=== PATIENT | male | born 1975 | race Caucasian/White ===

== ENCOUNTER 2020-02-19 21:14 | Observation (INO) | payer OTHER, SELFPAY ==
[2020-02-19] VITALS (8 sets, daily range): BP systolic 110–185; BP diastolic 55–101; PULSE 98–114; RESP 10–20; TEMP 36.2–37.3; O2SAT 93–97; BMI 61.6
--- NOTE | ~2020-02-19 | XR_ITS ---
EXAMINATION: XR chest 2V EXAM DATE: 02/19/2020 21:57 INDICATION: Shortness of breath. Left mid sternal chest pain. COVID 19 exposure. TECHNIQUE: Frontal and lateral projections of the chest obtained and reviewed. Comparison is made to prior examination from 04/30/2019. FINDINGS: The lungs are clear. There are no pleural effusions. The cardiomediastinal silhouette is within normal limits. There is no pneumothorax suspected. The bones and soft tissues are unremarkab le. IMPRESSION: No acute cardiopulmonary findings. Reviewed, dictated and finalized at location G.
--- NOTE | ~2020-02-19 | CT_ITS ---
EXAMINATION: CTA chest PE protocol DATE: 02/20/2020 12:49 INDICATION: Chest pain. Shortness of breath. TECHNIQUE: Computed tomography (CT) pulmonary angiogram of the chest was performed with 100 mL Omnipa que-350 intravenous contrast. Additional 3D reconstructions utilizing coronal maximum intensity proje ction (MIP) were performed. Automated exposure control and iterative reconstruction technique were em ployed. The dose-length product was 1089.68 mGy-cm. COMPARISON: None FINDINGS: Good but suboptimal contrast opacification of the pulmonary arteries. There is mild streak artifact f rom dense contrast in the superior vena cava and right atrium. Mild scattered respiratory motion wilian fact. Together this results in mild decreased sensitivity in some of the smaller subsegmental pulmona ry arteries. No evident pulmonary embolism. Mosaic attenuation the lungs consistent with partial expi ratory phase of imaging with subsegmental air trapping related to small airway disease. This is most prominent in the superior segment of the right lower lobe where there is prominent region with emphys chandler and increased lucency. No pneumonia, pulmonary edema, pleural effusion or pneumothorax. Heart siz e is normal. No pericardial effusion. Thoracic aorta is normal in caliber with no dissection. No path ologically enlarged thoracic lymphadenopathy. Mild thoracic spondylosis. IMPRESSION: 1. No pulmonary embolism. Sensitivity mildly decreased in some of the smaller subsegmental pulmonary arteries due to suboptimal contrast opacification and mild motion. 2. Atypical pattern of emphysema most prominent in the superior segment of the right lower lobe. Reviewed, dictated and finalized at location A. IMPRESSION: 1. No pulmonary embolism. Sensitivity mildly decreased in some of the smaller s ubsegmental pulmonary arteries due to suboptimal contrast opacification and mil d motion. 2. Atypical pattern of emphysema most prominent in the superior segment of the right lower lobe.
--- NOTE | ~2020-02-19 | US_ITS ---
EXAMINATION: US venous doppler [facility] DATE: 02/20/2020 15:13 INDICATION: Shortness of breath and tachycardia TECHNIQUE: Garcia scale images without and with compression and Doppler images of the bilateral lower e xtremity veins were obtained. COMPARISON: None. FINDINGS: The right common femoral vein, profunda femoral vein, femoral vein, popliteal vein, peroneal trunk, p osterior tibial veins, and greater saphenous vein are patent. The left common femoral vein, profunda femoral vein, femoral vein, popliteal vein, peroneal trunk, po sterior tibial veins, and greater saphenous vein are patent. IMPRESSION: 1. Patent bilateral lower extremity veins. No evidence of deep venous thrombosis. Reviewed, dictated and finalized at location A. IMPRESSION: 1. Patent bilateral lower extremity veins. No evidence of deep venous thrombosi s.
--- NOTE | 2020-02-19 21:19 | ECG_ITS ---
Measurements Intervals [place] Rate: 94 P: 38 MD: 194 QRS: -6 QRSD: 114 T: 55 QT: 314 QTc: 393 Interpretive Statements SINUS RHYTHM LOW QRS VOLTAGE IN PRECORDIAL LEADS VOLTAGE CRITERIA FOR LVH ST ELEVATION IN DIFFUSE LEADS- PROBABLY EARLY REPOLARIZATION MINIMAL Q WAVES- LATERAL LEADS BASELINE WANDER- II, III BORDERLINE ECG Electronically Signed On 02-20-2020 7:21:15 CDT by Rogelio Patricio D.O.
--- NOTE | 2020-02-19 21:40 | ED.CHESTPAIN ---
HPI - Chest Pain General Chief Complaint: Chest Pain Stated Complaint: upper resp. Time Seen by Provider: 02/19/20 21:17 Source: patient Mode of arrival: ambulatory Limitations: no limitations History of Present Illness HPI narrative: 44-year-old man with a history of obstructive sleep apnea, type 2 diabetes, and COPD comes in today complaining of sharp intermittent left-sided chest pain radiating through to his left back. He denies pain radiating to his arm and neck. He complains of intermittent shortness of breath not necessarily associated with the chest pain. The symptoms started 3 or 4 days ago. Currently the pain is 5/10. He has had some mild lightheadedness with the chest pain and occasionally some rapid heart rate, but no nausea, sweating, syncope. He had a stress test a year and half ago which was negative. MD complaint: chest pain Onset (ago): day(s) (3-4) Timing of current episode: episodic and still present Prior episodes: No Onset: during rest Pain location: substernal and left chest Pain radiation: back Severity: moderate Quality: sharp Relieving factors: nothing Exacerbating factors: nothing Associated symptoms: dyspnea, palpitations and cough (chronic) Treatment prior to arrival: nitroglycerin ( No improvement) Risk Factors Coronary artery disease risk factors: diabetes and family history of CAD before age 50 Pulmonary embolism risk factors: morbid obesity Related Data Home Medications Medication Instructions Recorded Confirmed tiotropium bromide 2.5 2 puff INHALATION DAILY gm 09/30/19 09/30/19 mcg/actuation mist for inhalation dulaglutide [Trulicity] 1.25 mg SUBCUT WEEKLY 02/19/20 02/19/20 indomethacin 25 mg PO DAILY 02/19/20 02/19/20 Allergies Allergy/AdvReac Type Severity Reaction Status Date / Time Contrast Media Allergy Intermediate Itching Uncoded 02/03/20 09:36 Review of Systems Constitutional: Constitutional: Denies chills, Denies fatigue, Denies fever(s) and Denies weakness Eyes: Eyes: Denies change in vision and Denies photophobia ENT: Denies dysphagia, Denies nasal congestion and Denies sore throat Cardiovascular: Cardiovascular: Reports as per HPI, Reports chest pain, Reports rapid heart rate and Denies radiating jaw, neck or arm pain Respiratory: Respiratory: Denies chest congestion, Reports cough, Reports dyspnea and Denies wheezing Gastrointestinal: Gastrointestinal: Denies abdominal pain, Denies diarrhea, Denies nausea and Denies vomiting Genitourinary: Genitourinary: Denies dysuria and Denies urinary frequency Musculoskeletal: Musculoskeletal: Reports arthralgias ( recent gout attack) Integumentary/Breasts: Skin/Breast: Denies pruritus, Denies erythema and Denies rash Neurologic: Reports as per HPI, Denies vertigo, Reports dizziness and Denies syncope Psychiatric: Psychiatric: Denies anxiety and Denies depression Endocrine: Endocrine: Denies polydipsia and Denies polyuria Hematologic/Lymphatic: Hematologic/Lymphatic: Denies easy bleeding and Denies easy bruising Allergic/Immunologic: Allergic/Immunologic: Denies lip swelling and Denies wheezing PMFSH Past Medical History Medical History COPD (chronic obstructive pulmonary disease) Hyperlipidemia associated with type 2 diabetes mellitus Hypothyroidism Migraine with aura and without status migrainosus Nonalcoholic fatty liver disease Obesity NABILA (obstructive sleep apnea) Pilonidal cyst Type 2 diabetes mellitus with hypertriglyceridemia Surgical History Surgical History History of fasciotomy (~2010) History of left heart catheterization (LHC) History of oral surgery (~2001) Oral Extractions Social History Social History Smoking status: Unknown if ever smoked Alcohol intake: current Substance use: never Gender identity (if verbalized by
[2020-02-19] MEDS: NITROGLYCERIN SL 0.4 MG TABLET SUBLINGUAL (21:59)
[2020-02-19] MEDS: ASPIRIN 81 MG CHEWABLE TABLET 324 MG PO (22:00)
[2020-02-19 22:06] LABS: Basophils Absolute Auto 0.01 K/mm3 (0.00-0.10); Basophils Percent Auto 0.1 % (0.0-1.0); Eosinophils Absolute Auto 0.18 K/mm3 (0.02-0.50); Eosinophils Percent Auto 2.4 % (1.0-6.0); Hematocrit 39.7 % (40.0-54.0); Hemoglobin 13.6 g/dL (14.0-18.0); Immature Granulocyte Absolute 0.03 K/mm3 (0.00-0.00); Immature Granulocyte Percent A 0.4 % (0.0-0.0); Lymphocytes Absolute Auto 2.01 K/mm3 (1.10-4.50); Lymphocytes Percent Auto 27.2 % (18.0-42.0); Mean Corpuscular HGB Conc 34.3 g/dL (32.0-36.0); Mean Corpuscular Hemoglobin 31.2 pg (27.0-31.0); Mean Corpuscular Volume 91.1 fL (78.0-102.0); Mean Platelet Volume 8.9 fl (8.7-11.0); Monocytes Absolute Auto 0.37 K/mm3 (0.10-0.90); Neutrophils Absolute Auto 4.8 K/mm3 (1.7-7.2); Neutrophils Percent Auto 64.9 % (50.0-70.0); Platelet Count Result 207 K/mm3 (150-420); Red Blood Count 4.36 M/mm3 (4.70-6.10); Red Cell Distribution Width 12.7 % (11.6-14.4); White Blood Count 7.4 K/mm3 (4.8-10.8)
[2020-02-19 22:19] LABS: Partial Thromboplastin Time 27.1 SEC (22.3-31.6); Prothrombin Time 10.6 Seconds (9.64-11.0)
[2020-02-19 22:22] LABS: D Dimer 0.61 mg/L (0.19-0.50)
[2020-02-19 22:24] LABS: Alanine Aminotransferase 34 U/L (16-63); Albumin Level 3.4 g/dL (3.4-5.0); Alkaline Phosphatase 76 U/L (46-116); Anion Gap 11.9 mmol/L (7-16); Aspartate Amino Transferase 20 U/L (15-37); Bilirubin,Total 0.3 mg/dL (0.00-1.00); Blood Urea Nitrogen 11 mg/dL (7-18); Calcium 8.6 mg/dL (8.5-10.1); Carbon Dioxide 30 mmol/L (21-32); Chloride 101 mmol/L (98-108); Estimated CRCL calculation 165 ml/min; Estimated Glomerular Filt Rate > 60; Glucose 148 mg/dL (70-99); Influenza Control Valid (Valid); Osmolality Calculated 290 mOsm/kg (285-295); Potassium 3.9 mmol/L (3.5-5.1); Sodium 139 mmol/L (136-145); Total Protein 7.3 g/dL (6.4-8.2)
--- NOTE | 2020-02-19 22:25 | PC.NURSE ---
Patient reports slight improvement in CP after first Nitro given, now rates pain 3/10. ST on monitor, rate 110-120s. BP has normalized after first Nitro. Second nitro given, will continue to monitor
[2020-02-19 22:27] LABS: Troponin I < 0.02 ng/mL (0.00-0.056)
[2020-02-19 22:37] LABS: BNP < 5 pg/mL (0-100)
--- NOTE | 2020-02-19 22:47 | PC.NURSE ---
Patient to be admitted for [address] Duncan.
[2020-02-19] MEDS: predniSONE 40 MG, predniSONE 10 MG 50 MG PO (23:32)
--- NOTE | 2020-02-19 23:40 | ADMGEN ---
This patient, Juan Ramon Tabor, was admitted to 2nd Floor Room 212-1. Patient/family oriented to hospital policies and general routines including ID bracelet, bed and alarms, visiting hours, pain management, procedures, bathroom and other care routines, personal items, smoking policy, room service/diet, and visiting hours. Valuables list has been completed. Information on how to activate the Rapid Response Team has been discussed. Patient/Family are encouraged to report perceived risks to care and to ask questions if they do not understand what they are told or what they should do.
[2020-02-20] VITALS (12 sets, daily range): BP systolic 113–156; BP diastolic 65–98; PULSE 79–114; RESP 18–20; TEMP 36.2–36.7; O2SAT 6–96
--- NOTE | 2020-02-20 00:01 | ECHO_ITS ---
Patient Info Name: Juan Ramon Tabor Age: 44 years : 1975 Gender: Male Ht: 73 in Wt: 471 lbs BSA: 3.44 m2 HR: 114 bpm BP: 136 / 72 mmHg Heart Rhythm: Sinus Rhythm Technical Quality: Poor Exam Date: 02/20/2020 12:45 PM Exam Location: [facility] Exam Room: 226 Patient Status: Inpatient Admit Date: 02/19/2020 Staff Ordering Physician: Michael Duncan MD Visitor Services Associate: Luz Rincon RDCS Attending Provider: Michael Duncan MD Referring Physician: Dakota ARMENDARIZ; Exam Type: CA echo doppler color flow Study Info Indications R07.9 - Chest pain, unspecified Complete two-dimensional, color flow and Doppler transthoracic echocardiogram is performed. Reason for Poor Study: patient body habitus History/Risk Factors Hypertension: No Dyslipidemia: Yes Congenital Heart Disease (CHD): No Peripheral Arterial Disease (PAD): No Myocardial Infarction (MO): No Chronic Lung Disease: No Obesity: Yes Renal Disease: No Congestive Heart Failure (CHF): No Cardiomyopathy/LV Systolic Dysfunction: No Diabetes Mellitus: Type II COPD: On Meds Tobacco Use: Never Cerebrovascular Disease: No Family History: Diabetes Mellitus, Coronary Artery Disease DVT Treatment: Edoxaban Deep Vein Thrombosis (DVT): None Dialysis: None Frailty Scale (CSHA): 3: Managing Well Cardiac Arrest: No Summary 1. Technically suboptimal study due to poor sonographic images. 2. No subcostal images acquired. 3. Left ventricular chamber dimension is normal. 4. Left ventricular systolic function is normal, estimated at 60-65%. 5. The left ventricular diastolic function is normal. 6. Left atrial chamber dimension is mildly enlarged. 7. There is trivial pericardial effusion. Recommendations * Continue medical therapy for diabetes. Left Ventricle Tissue doppler is not performed. Technically suboptimal study due to poor sonographic images. No subcostal images acquired. Left ventricular chamber dimension is normal. Left ventricular systolic function is normal, estimated at 60-65%. The left ventricular diastolic function is normal. Right Ventricle Right ventricular chamber dimension is not well visualized. Left Atria Left atrial chamber dimension is mildly enlarged. Right Atria Right atrial chamber dimension is normal. Aortic Valve Cannot determine number of aortic valve leaflets. The aortic valve is not well visualized. There is no aortic valve stenosis. There is no aortic valve regurgitation. Pulmonic Valve The pulmonic valve is not well visualized. Mitral Valve There is no mitral valve stenosis. There is no mitral valve regurgitation. Tricuspid Valve The tricuspid valve leaflets are not well visualized. Pericardium/Pleural There is trivial pericardial effusion. Aorta The aortic root size at the sinus of Valsalva is normal. Left Ventricular Outflow Tract Name Value Normal LVOT 2D LVOT Diameter 2.2 cm LVOT Doppler LVOT Peak Velocity 132 cm/s LVOT Peak Gradient
[2020-02-20] MEDS: ENOXAPARIN 120 MG/0.8 ML SYRINGE SUB-Q ×2 (01:50→14:16)
[2020-02-20] MEDS: SODIUM CHLORIDE 0.9% IV 1,000 ML 100 ML IV CONT (01:50)
[2020-02-20] MEDS: ENOXAPARIN 30 MG/0.3 ML SYRINGE SUB-Q ×2 (01:50→14:17)
[2020-02-20 02:26] LABS: Troponin I < 0.02 ng/mL (0.00-0.056)
--- NOTE | 2020-02-20 03:15 | PC.NURSE ---
Patient resting in bed. Patient running sinus rhythm on telemetry rate in the 80s
[2020-02-20 05:41] LABS: Basophils Absolute Auto 0.01 K/mm3 (0.00-0.10); Basophils Percent Auto 0.1 % (0.0-1.0); Eosinophils Absolute Auto 0.12 K/mm3 (0.02-0.50); Eosinophils Percent Auto 1.6 % (1.0-6.0); Hematocrit 38.4 % (40.0-54.0); Immature Granulocyte Absolute 0.03 K/mm3 (0.00-0.00); Immature Granulocyte Percent A 0.4 % (0.0-0.0); Lymphocytes Absolute Auto 1.26 K/mm3 (1.10-4.50); Lymphocytes Percent Auto 17.1 % (18.0-42.0); Mean Corpuscular HGB Conc 33.9 g/dL (32.0-36.0); Mean Corpuscular Hemoglobin 31.1 pg (27.0-31.0); Mean Corpuscular Volume 91.9 fL (78.0-102.0); Mean Platelet Volume 9.2 fl (8.7-11.0); Monocytes Absolute Auto 0.25 K/mm3 (0.10-0.90); Monocytes Percent Auto 3.4 % (2.0-11.0); Neutrophils Absolute Auto 5.7 K/mm3 (1.7-7.2); Neutrophils Percent Auto 77.4 % (50.0-70.0); Platelet Count Result 185 K/mm3 (150-420); Red Blood Count 4.18 M/mm3 (4.70-6.10); Red Cell Distribution Width 12.8 % (11.6-14.4); White Blood Count 7.4 K/mm3 (4.8-10.8)
--- NOTE | 2020-02-20 05:54 | PC.NURSE ---
Call placed to [facility] to discuss pretreatment Benadryl and prednisone orders
[2020-02-20] MEDS: LEVOTHYROXINE SODIUM 112 MCG TABLET PO (05:59)
[2020-02-20] MEDS: ALBUTEROL SULFATE (*SP) INHALER 2 PUFF INHALATION ×4 (05:59→20:26)
[2020-02-20 06:04] LABS: Alanine Aminotransferase 33 U/L (16-63); Albumin Level 3.2 g/dL (3.4-5.0); Alkaline Phosphatase 70 U/L (46-116); Anion Gap 15.5 mmol/L (7-16); Aspartate Amino Transferase 22 U/L (15-37); Bilirubin,Total 0.2 mg/dL (0.00-1.00); Blood Urea Nitrogen 12 mg/dL (7-18); Calcium 8.7 mg/dL (8.5-10.1); Carbon Dioxide 27 mmol/L (21-32); Chloride 102 mmol/L (98-108); Estimated CRCL calculation 164 ml/min; Estimated Glomerular Filt Rate > 60; Glucose 176 mg/dL (70-99); Osmolality Calculated 293 mOsm/kg (285-295); Potassium 4.5 mmol/L (3.5-5.1); Sodium 140 mmol/L (136-145); Total Protein 6.6 g/dL (6.4-8.2); Troponin I < 0.02 ng/mL (0.00-0.056)
--- NOTE | 2020-02-20 06:08 | PC.NURSE ---
received call back from [facility] and explained that the Prednisone and Benadryl orders for 0500 and 1100 need to be given this morning and that the orders need to be fixed so that medication can be scanned out.
[2020-02-20] MEDS: predniSONE 40 MG, predniSONE 10 MG 50 MG PO ×3 (06:14→12:32)
[2020-02-20 07:53] LABS: Glucose Point of Care 141 (65-105)
[2020-02-20] MEDS: ACETAMINOPHEN 500 MG TABLET 1000 MG PO ×2 (08:12→13:00)
[2020-02-20] MEDS: INDOMETHACIN 25 MG CAPSULE PO (08:13)
--- NOTE | 2020-02-20 13:58 | PM.IMHP ---
H&P: HPI History of Present Illness Chief complaint: upper resp Narrative: Juan Ramon Tabor is a 44 year old male that presented to the ED with chest pain. Patient has a past medical history of COPD, hyperlipidemia, hypothyroidism, migraines, non alcoholic fatty liver disease, obesity, NABILA, type 2 diabetes and pericarditis. according to patient for the last 3-4 days he has been having intermittent chest pains that radiates to his left back and causes him shortness of breath. Patient notes that he does have a history of chest pains and he would normally take nitro and Spiriva along with his CPAP and his shortness of breath and chest pains would resolve. He noted that it did not work this time and chest pains worsened that is when he decided to proceed to the ED. He also noted that he had a little dizziness and lightheadedness with the chest pains with occasional rapid heart beat. while he was in the ED he did receive more nitro, troponin was negative x3, chest x-ray was also negative EKG sinus rhythm and BMP within normal limits his influenza was negative. he does have a COVID-19 pending. according to patient his family is currently on quarantine. his son works at [employer], to employs is at the [employer] tested positive. his family will officially be off quarantine 02/23. at this time he still has a little chest discomfort. he is currently telemetry, no arrhythmias noted. echo and CTA is currently pending. patient is allergic to contrast he will be given prednisone and Benadryl to prevent allergic reaction. patient instructed to have his bring his CPAP. Review of Systems Constitutional: Constitutional: Denies chills, Denies fatigue, Denies fever(s) and Denies headache(s) Cardiovascular: Cardiovascular: Reports chest pain at rest ( chest discomfort), Denies irregular heart rhythm and Reports lightheadedness Respiratory: Respiratory: Denies pain with cough, Reports dyspnea and Denies wheezing Gastrointestinal: Gastrointestinal: Reports no additional gastrointestinal complaints, Denies dyspepsia, Denies heartburn, Denies diarrhea, Denies nausea and Denies vomiting Genitourinary: Genitourinary: Denies hematuria, Denies dysuria, Denies flank pain and Denies urinary frequency Musculoskeletal: Musculoskeletal: Reports no additional musculoskeletal complaints Integumentary/Breasts: Skin/Breast: Reports system reviewed and no additional complaints, except as docu Neurologic: Reports system reviewed and no additional complaints, except as documented, Denies Abnormal speech present and Denies headache(s) Psychiatric: Psychiatric: Reports no additional psychiatric complaints, Denies confusion, Denies mood swings, Denies panic attacks and Denies paranoia Endocrine: Endocrine: Reports no additional endocrine complaints Hematologic/Lymphatic: Hematologic/Lymphatic: Reports no additional hematologic/lymphatic complaints Allergic/Immunologic: Allergic/Immunologic: Reports no additional allergic/immunologic complaints PMFSH Past Medical History Medical History COPD (chronic obstructive pulmonary disease) Hyperlipidemia associated with type 2 diabetes mellitus Hypothyroidism Migraine with aura and without status migrainosus Nonalcoholic fatty liver disease Obesity NABILA (obstructive sleep apnea) Pilonidal cyst Type 2 diabetes mellitus with hypertriglyceridemia Surgical History Surgical History History of fasciotomy (~2010) History of left heart catheterization (LHC) History of oral surgery (~2001) Oral Extractions Social History Social History Smoking status: Never smoker Alcohol intake: never Substance use: never Gender identity (if verbalized by the patient): Male Spiritual care concerns: No Agree to blood products: Yes Meds Home Medications and Allergies
--- NOTE | 2020-02-20 14:38 | PC.NURSE ---
pt reports no relief from rtylenol for headache. Kelli [employer] notified.
[2020-02-20] MEDS: SUMAtriptan SUCCINATE 25 MG TABLET 100 MG PO (15:28)
[2020-02-20] MEDS: NAPROXEN 250 MG TABLET PO (15:29)
[2020-02-20] MEDS: NAPROXEN 250 MG TABLET 500 MG PO (16:42)
[2020-02-20 16:54] LABS: Glucose Point of Care 197 (65-105)
--- NOTE | 2020-02-20 17:34 | PC.NURSE ---
Patients blood sugar 196. Patient reported that he had eaten candy just before scan was taken. No SSI needed.
--- NOTE | 2020-02-20 19:11 | PC.NURSE ---
1600 Patient denies chest pain, SOB.
--- NOTE | 2020-02-20 19:13 | PC.NURSE ---
1700 sitting on side of bed. C/O headache. Denies SOB, chest pain. SPO2 @ 92 % on room air.
--- NOTE | 2020-02-20 19:15 | PC.NURSE ---
1800 Sitting at side of bed. No SOB or c/o chest pain. Pleasant and talkative.
--- NOTE | 2020-02-20 19:30 | PC.NURSE ---
pt sitting on side of bed, denies any chest pain or sob at this time
[2020-02-20] MEDS: PANTOPRAZOLE 40 MG TABLET PO (20:26)
--- NOTE | 2020-02-20 20:30 | PC.NURSE ---
pt resting in bed, medications given, juice per request and fan, pt denies any chest pain or sob at this time.
[2020-02-20 21:19] LABS: Glucose Point of Care 175 (65-105)
--- NOTE | 2020-02-20 22:33 | PC.NURSE ---
pt sleeping, respirations even and regular, no evidence of distress noted
[2020-02-21] MEDS: ENOXAPARIN 120 MG/0.8 ML SYRINGE SUB-Q (01:14)
[2020-02-21] MEDS: ENOXAPARIN 30 MG/0.3 ML SYRINGE SUB-Q (01:14)
[2020-02-21 01:15] VITALS: BP 136/86; PULSE 68; RESP 20; TEMP 36.6; O2SAT 97
--- NOTE | 2020-02-21 01:15 | PC.NURSE ---
pt sleeping with home cpap one, vital signs obtained, denies any pain or sob
--- NOTE | 2020-02-21 03:24 | PC.NURSE ---
pt sleeping, no evidence of distress noted, respirations even and regular
[2020-02-21 03:55] VITALS: PULSE 63
[2020-02-21] MEDS: LEVOTHYROXINE SODIUM 112 MCG TABLET PO (05:39)
[2020-02-21] MEDS: ALBUTEROL SULFATE (*SP) INHALER 2 PUFF INHALATION ×2 (05:39→10:28)
[2020-02-21 05:40] VITALS: BP 129/76; PULSE 79; RESP 20; TEMP 36.4; O2SAT 95
--- NOTE | 2020-02-21 05:40 | PC.NURSE ---
pt sitting on side of bed, denies any chest pain, given orange juice per request, states he is not diabetic just pre-diabetic
[2020-02-21 05:46] LABS: Basophils Absolute Auto 0.02 K/mm3 (0.00-0.10); Basophils Percent Auto 0.2 % (0.0-1.0); Eosinophils Absolute Auto 0.02 K/mm3 (0.02-0.50); Eosinophils Percent Auto 0.2 % (1.0-6.0); Hematocrit 38.9 % (40.0-54.0); Hemoglobin 13.1 g/dL (14.0-18.0); Immature Granulocyte Percent A 0.9 % (0.0-0.0); Lymphocytes Percent Auto 22.1 % (18.0-42.0); Mean Corpuscular HGB Conc 33.7 g/dL (32.0-36.0); Mean Corpuscular Hemoglobin 30.8 pg (27.0-31.0); Mean Corpuscular Volume 91.3 fL (78.0-102.0); Mean Platelet Volume 9.1 fl (8.7-11.0); Monocytes Absolute Auto 0.61 K/mm3 (0.10-0.90); Monocytes Percent Auto 5.6 % (2.0-11.0); Neutrophils Absolute Auto 7.7 K/mm3 (1.7-7.2); Platelet Count Result 207 K/mm3 (150-420); Red Blood Count 4.26 M/mm3 (4.70-6.10); Red Cell Distribution Width 12.8 % (11.6-14.4); White Blood Count 10.9 K/mm3 (4.8-10.8)
[2020-02-21 06:13] LABS: Alanine Aminotransferase 28 U/L (16-63); Albumin Level 3.1 g/dL (3.4-5.0); Alkaline Phosphatase 62 U/L (46-116); Anion Gap 12.2 mmol/L (7-16); Aspartate Amino Transferase 14 U/L (15-37); Bilirubin,Total 0.2 mg/dL (0.00-1.00); Blood Urea Nitrogen 11 mg/dL (7-18); Calcium 8.7 mg/dL (8.5-10.1); Carbon Dioxide 29 mmol/L (21-32); Chloride 103 mmol/L (98-108); Estimated CRCL calculation 190 ml/min; Estimated Glomerular Filt Rate > 60; Glucose 148 mg/dL (70-99); Osmolality Calculated 292 mOsm/kg (285-295); Potassium 4.2 mmol/L (3.5-5.1); Sodium 140 mmol/L (136-145); Total Protein 6.5 g/dL (6.4-8.2)
[2020-02-21 07:41] LABS: Glucose Point of Care 106 (65-105)
[2020-02-21] MEDS: INDOMETHACIN 25 MG CAPSULE PO (08:32)
[2020-02-21] MEDS: NAPROXEN 250 MG TABLET 500 MG PO (08:33)
[2020-02-21] MEDS: PANTOPRAZOLE 40 MG TABLET PO (08:33)
[2020-02-21 09:35] VITALS: BP 136/78; PULSE 78; RESP 18; TEMP 36.3; O2SAT 100
--- NOTE | 2020-02-21 11:13 | P.DS_ITS ---
DS: Diagnosis Admitting Diagnosis Admitting Diagnosis: Dyspnea, unspecified <Kelli eMade BOAT FUELER-C - Last Filed: 02/21/20 12:10> Discharge Diagnosis (1) Chest pain: Code(s): R07.9 - Chest pain, unspecified <Kelli Meade [employer] F[employer]ELER-C - Last Filed: 02/21/20 12:10> Status: Acute <Kelli Meade BOAT FUELER-C - Last Filed: 02/21/20 12:10> Assessment and Plan: * possibly secondary to COPD exacerbation * noncardiac related * troponin to negative x3 * EKG sinus rhythm * echo unremarkable * CTA pending and lower extremity Dopplers unremarkable * D-dimer slightly elevated 0.61 * COVID-19 pending * influenza negative * patient has a history of pericarditis that have occurred within the last 5 years x2 <Kelli Meade BOAT FUELER-C - Last Filed: 02/21/20 12:10> (2) Bilateral lower extremity edema: Code(s): R60.0 - Localized edema <Kelli Meade BOAT FUELER-C - Last Filed: 02/21/20 12:10> Status: Acute <Kelli Meade BOAT FUELER-C - Last Filed: 02/21/20 12:10> Assessment and Plan: * patient has a history of lower extremity edema * echo ordered a rule out congestive heart failure * BNP within normal limits <Kelli MckinnonBeatriz Deshaun BOAT FUELER-C - Last Filed: 02/21/20 12:10> (3) NABILA (obstructive sleep apnea): Code(s): G47.33 - Obstructive sleep apnea (adult) (pediatric) <Kelli Meade BOAT FUELER-C - Last Filed: 02/21/20 12:10> Status: Acute <Kelli Meade BOAT FUELER-C - Last Filed: 02/21/20 12:10> Assessment and Plan: * continue use of CPAP <Mallyubov InoDU Mackay-C - Last Filed: 02/21/20 12:10> (4) Obesity: Code(s): E66.9 - Obesity, unspecified <Mallyubov InoDU Mackay-C - Last Filed: 02/21/20 12:10> Status: Acute <Kelli Meade KATY - Last Filed: 02/21/20 12:10> Assessment and Plan: * patient educated on healthy lifestyle * continue diabetic diet <Kelli Meade KATY - Last Filed: 02/21/20 12:10> (5) Type 2 diabetes mellitus with hypertriglyceridemia: Code(s): E11.69 - Type 2 diabetes mellitus with other specified complication; E78.1 - Pure hyperglyceridemia <Kelli Meade BOAT FUELERRicky - Last Filed: 02/21/20 12:10> Status: Acute <Kelli Meade KATY - Last Filed: 02/21/20 12:10> Assessment and Plan: * controlled * continue home medication <Kelli Meade BOAT FUELERSamsonAnge - Last Filed: 02/21/20 12:10> (6) COPD (chronic obstructive pulmonary disease): Code(s): J44.9 - Chronic obstructive pulmonary disease, unspecified <Kelli Meade KENAAnge - Last Filed: 02/21/20 12:10> Status: Acute <Kelli Meade KATY - Last Filed: 02/21/20 12:10> Assessment and Plan: * stable * continue inhalers patient will start taking steroids once COVID-19 returns negative * continue CPAP <Kelli Meade BOAT FUELERRicky - Last Filed: 02/21/20 12:10> (7) Hypothyroidism: Code(s): E03.9 - Hypothyroidism, unspecified <Kelli Meade KENAAnge - Last Filed: 02/21/20 12:10> Status: Acute <Kelli Meade KATY - Last Filed: 02/21/20 12:10> Assessment and Plan: * continue Synthroid * will follow-up primary care physician <Mallyubov InoKATY Mackay - Last Filed: 02/21/20 12:10> DS: Summary Hospital Course Hospital Course: patient H&P admission 02/20/2020 Narrative: Juan Ramon Tabor is a 44 year old male that presented to the ED with chest pain. Patient has a past medical history of COPD, hyperlipidemia, hypothyroidism, migraines, non alcoholic
--- NOTE | 2020-02-21 11:13 | PM.DS ---
DS: Diagnosis Admitting Diagnosis Admitting Diagnosis: Dyspnea, unspecified <Kelli Meade TRACKWALKER-C - Last Filed: 02/21/20 12:10> Discharge Diagnosis (1) Chest pain: Code(s): R07.9 - Chest pain, unspecified <Kelli Meade TRACKWALKER-C - Last Filed: 02/21/20 12:10> Status: Acute <Kelli Meade TRACKWALKER-C - Last Filed: 02/21/20 12:10> Assessment and Plan: possibly secondary to COPD exacerbation noncardiac related troponin to negative x3 EKG sinus rhythm echo unremarkable CTA pending and lower extremity Dopplers unremarkable D-dimer slightly elevated 0.61 COVID-19 pending influenza negative patient has a history of pericarditis that have occurred within the last 5 years x2 <Kelli Meade TRACKWALKER-C - Last Filed: 02/21/20 12:10> (2) Bilateral lower extremity edema: Code(s): R60.0 - Localized edema <Kelli Meade TRACKWALKER-C - Last Filed: 02/21/20 12:10> Status: Acute <Kelli Meade TRACKWALKER-C - Last Filed: 02/21/20 12:10> Assessment and Plan: patient has a history of lower extremity edema echo ordered a rule out congestive heart failure BNP within normal limits <Kelli Meade TRACKWALKER-C - Last Filed: 02/21/20 12:10> (3) NABILA (obstructive sleep apnea): Code(s): G47.33 - Obstructive sleep apnea (adult) (pediatric) <Kelli MckinnonBeatriz Meade TRACKWALKER-C - Last Filed: 02/21/20 12:10> Status: Acute <Kelli MckinnonBeatriz Deshaun TRACKWALKER-C - Last Filed: 02/21/20 12:10> Assessment and Plan: continue use of CPAP <Mallyubov InoDU Mackay-C - Last Filed: 02/21/20 12:10> (4) Obesity: Code(s): E66.9 - Obesity, unspecified <Kelli MckinnonBeatriz Meade TRACKWALKER-C - Last Filed: 02/21/20 12:10> Status: Acute <Kelli MckinnonBeatriz Meade TRACKWALKER-C - Last Filed: 02/21/20 12:10> Assessment and Plan: patient educated on healthy lifestyle continue diabetic diet <Kelli MckinnonBeatriz DeshaunKATY - Last Filed: 02/21/20 12:10> (5) Type 2 diabetes mellitus with hypertriglyceridemia: Code(s): E11.69 - Type 2 diabetes mellitus with other specified complication; E78.1 - Pure hyperglyceridemia <Kelli MckinnonKAYT Mackay - Last Filed: 02/21/20 12:10> Status: Acute <Kelli MeaedKATY - Last Filed: 02/21/20 12:10> Assessment and Plan: controlled continue home medication <Mallyubov InoKATY Mackay - Last Filed: 02/21/20 12:10> (6) COPD (chronic obstructive pulmonary disease): Code(s): J44.9 - Chronic obstructive pulmonary disease, unspecified <Kelli MckinnonDU MackaySamsonAnge - Last Filed: 02/21/20 12:10> Status: Acute <Kelli Mcgraw KATY Meade - Last Filed: 02/21/20 12:10> Assessment and Plan: stable continue inhalers patient will start taking steroids once COVID-19 returns negative continue CPAP <MalDU RothSamsonAnge - Last Filed: 02/21/20 12:10> (7) Hypothyroidism: Code(s): E03.9 - Hypothyroidism, unspecified <Kelli MeadeDURicky - Last Filed: 02/21/20 12:10> Status: Acute <Mallyubov InoDU MackaySamsonAnge - Last Filed: 02/21/20 12:10> Assessment and Plan: continue Synthroid will follow-up primary care physician <MalKATY Roth - Last Filed: 02/21/20 12:10> DS: Summary Hospital Course Hospital Course: patient H&P admission 02/20/2020 Narrative: Juan Ramon Tabor is a 44 year old male that presented to the ED with chest pain. Patient has a past medical history of COPD, hyperlipidemia, hypothyroidism, migraines, non alcoholic fatty liver disease, obesity, NABILA, type 2 diabetes and pericarditis. according to patient for the last 3-4 days he has been having intermittent chest pains that radiates to his left back and causes him shortness of breath. Patient notes that he does have a history of chest pains and he would normally take nitro and Spiriva along with his CPAP and his shortness of breath and oswaldo
--- NOTE | 2020-02-21 12:15 | PC.NURSE ---
pt discharged from facility via w/c at 11:55am. made safe exit form hospital to awaiting private car and family member. discharge instructions given. pt verbalized understanding. pt aware that covid19 tests are still pending and he needs to maintain quarantine until further notice.
[2020-02-21 13:23] LABS: SARS-CoV-2 RNA PCR Negative
--- NOTE | 2020-02-25 16:54 | PC.NURSE ---
DISCHARGE FOLLOW UP CALL: Pt states admission was ok, protocols are different with the virus going around, despite that, staff were attentive. Pt was disappointed that he was told he would get a phonecall about his COVID-19 test result, and instead he had to call the hospital to get the result. Informed that staff would investigate. Discharge was seamless.
== END 2020-02-21 11:40 | disposition home or self-care (01) ==
LOC: CHSED 23:14 → CHS2ND 23:21
PROVIDERS: Nurse Practitioner; Admitting Provider Emergency Medicine; Emergency Provider Emergency Medicine; Visit Provider Emergency Medicine
DX: R07.9 Chest pain, unspecified (principal); R06.00 Dyspnea, unspecified; Z20.828 Contact with and (suspected) exposure to other viral communicable diseases; J44.9 Chronic obstructive pulmonary disease, unspecified; R60.0 Localized edema; E11.9 Type 2 diabetes mellitus without complications; E78.5 Hyperlipidemia, unspecified; E03.9 Hypothyroidism, unspecified; K76.0 Fatty (change of) liver, not elsewhere classified; G47.33 Obstructive sleep apnea (adult) (pediatric); E78.1 Pure hyperglyceridemia; E66.9 Obesity, unspecified
CPT/HCPCS: 36415; 71046; 71275; 80053; 83880; 84484; 85025; 85380; 85610; 85730; 87635; 87804; 93005; 93306; 93970; 94640; 96360; 96361; 96372; 99285; A9270; G0378; J1650; J7030; J7512; Q9965; U0003

== ENCOUNTER 2020-03-02 09:18 | Outpatient (CLI) | payer OTHER, SELFPAY ==
[2020-03-02 09:58] LABS: Hemoglobin A1C 6.1 % (<5.7)
[2020-03-02 10:48] LABS: Thyroid Stimulating Hormone 4.35 uIU/mL (0.36-3.74)
== END 2020-03-02 09:19 | disposition home or self-care (01) ==
LOC: CHSLAB 09:21
PROVIDERS: PCP Nurse Practitioner Family; Visit Provider Nurse Practitioner Family
DX: E78.1 Pure hyperglyceridemia (principal); E11.69 Type 2 diabetes mellitus with other specified complication; E03.9 Hypothyroidism, unspecified
CPT/HCPCS: 36415; 83036; 84443

== ENCOUNTER 2020-04-08 17:56 | Outpatient (CLI) | payer OTHER, SELFPAY ==
[2020-04-08] MEDS: DIVALPROEX SODIUM 250 MG TABEC 500 MG PO (18:30)
[2020-04-08] MEDS: METOCLOPRAMIDE HCL INJ 10 MG/2 ML VIAL IV PUSH (18:55)
[2020-04-08] MEDS: SODIUM CHLORIDE 0.9% IV 1,000 ML 999 ML IV CONT (18:55)
[2020-04-08] MEDS: DEXAMETHASONE SOD PHOS INJ 4 MG/ML VIAL IV PUSH (18:55)
--- NOTE | 2020-04-08 20:00 | PC.NURSE ---
pt fluids infusion complete, iv removed catheter intact, bleeding stopped, bandage applied, pt left unit ambulatory with no evidence of distress noted
== END 2020-04-08 20:03 | disposition home or self-care (01) ==
PROVIDERS: PCP Nurse Practitioner Family; Visit Provider Nurse Practitioner Family
DX: G43.109 Migraine with aura, not intractable, without status migrainosus (principal)
CPT/HCPCS: 96365; A9270; J1100; J2765; J7030

== ENCOUNTER 2020-04-15 18:00 | Outpatient (CLI) | payer OTHER, SELFPAY ==
--- NOTE | ~2020-04-15 | XR_ITS ---
EXAMINATION: XR hip RT min 2V DATE: 04/15/2020 18:15 INDICATION: Right hip pain TECHNIQUE: Anteroposterior and frog-leg lateral views of the right hip were obtained. COMPARISON: None. FINDINGS: Alignment is normal. No fracture or suspected avascular necrosis. Right hip joint spaces relatively p reserved. Small amount of ossification along the superolateral rim of the right glenoid which could r epresent small os acetabula or labral chondrocalcinosis or heterotopic ossification. IMPRESSION: 1. Small right os acetabula versus labral chondrocalcinosis or heterotopic ossification. Otherwise un remarkable right hip radiographs with normal joint space and no acute osseous abnormality. Reviewed, dictated and finalized at location A. IMPRESSION: 1. Small right os acetabula versus labral chondrocalcinosis or heterotopic ossi fication. Otherwise unremarkable right hip radiographs with normal joint space and no acute osseous abnormality.
== END 2020-04-15 18:01 | disposition home or self-care (01) ==
LOC: CHSIMG 18:01
PROVIDERS: PCP Nurse Practitioner Family; Visit Provider Nurse Practitioner Family
DX: M25.559 Pain in unspecified hip (principal)
CPT/HCPCS: 73502

== ENCOUNTER 2020-06-09 08:45 | Outpatient (CLI) | payer OTHER, SELFPAY ==
[2020-06-09 10:17] LABS: Thyroid Stimulating Hormone 5.18 uIU/mL (0.36-3.74)
== END 2020-06-09 08:46 | disposition home or self-care (01) ==
LOC: CHSLAB 08:46
PROVIDERS: PCP Nurse Practitioner Family; Visit Provider Nurse Practitioner Family
DX: E03.9 Hypothyroidism, unspecified (principal)
CPT/HCPCS: 36415; 84443

== ENCOUNTER 2020-07-08 13:27 | Outpatient (CLI) | payer OTHER, SELFPAY ==
[2020-07-08 14:25] LABS: Thyroid Stimulating Hormone 3.84 uIU/mL (0.36-3.74)
[2020-07-12 04:21] LABS: Immunoglobulin E 2324 kU/L (<=114)
== END 2020-07-08 13:28 | disposition home or self-care (01) ==
LOC: CHSLAB 13:29
PROVIDERS: Nurse Practitioner Family; PCP Nurse Practitioner Family; Visit Provider Internal Medicine Pulmonary Disease
DX: E03.9 Hypothyroidism, unspecified (principal); R76.8 Other specified abnormal immunological findings in serum
CPT/HCPCS: 36415; 82785; 84443

== ENCOUNTER 2020-07-21 11:50 | Outpatient (CLI) | payer OTHER, SELFPAY ==
[2020-07-21 12:12] LABS: Basophils Absolute Auto 0.02 K/mm3 (0.00-0.10); Basophils Percent Auto 0.2 % (0.0-1.0); Eosinophils Absolute Auto 0.02 K/mm3 (0.02-0.50); Eosinophils Percent Auto 0.2 % (1.0-6.0); Hematocrit 43.1 % (40.0-54.0); Hemoglobin 14.5 g/dL (14.0-18.0); Immature Granulocyte Absolute 0.05 K/mm3 (0.00-0.00); Immature Granulocyte Percent A 0.5 % (0.0-0.0); Lymphocytes Absolute Auto 0.98 K/mm3 (1.10-4.50); Lymphocytes Percent Auto 9.8 % (18.0-42.0); Mean Corpuscular HGB Conc 33.6 g/dL (32.0-36.0); Mean Corpuscular Hemoglobin 31.3 pg (27.0-31.0); Mean Corpuscular Volume 92.9 fL (78.0-102.0); Mean Platelet Volume 8.6 fl (8.7-11.0); Monocytes Absolute Auto 0.28 K/mm3 (0.10-0.90); Monocytes Percent Auto 2.8 % (2.0-11.0); Neutrophils Absolute Auto 8.6 K/mm3 (1.7-7.2); Neutrophils Percent Auto 86.5 % (50.0-70.0); Platelet Count Result 229 K/mm3 (150-420); Red Blood Count 4.64 M/mm3 (4.70-6.10); Red Cell Distribution Width 12.5 % (11.6-14.4)
[2020-07-21 12:35] LABS: Hemoglobin A1C 5.6 % (<5.7)
[2020-07-21 13:09] LABS: Alanine Aminotransferase 38 U/L (16-63); Alkaline Phosphatase 85 U/L (46-116); Anion Gap 6 mmol/L (8-16); Aspartate Amino Transferase 19 U/L (15-37); Bilirubin,Total 0.5 mg/dL (0.00-1.00); Blood Urea Nitrogen 10 mg/dL (7-18); Calcium 9.1 mg/dL (8.5-10.1); Carbon Dioxide 30 mmol/L (21-32); Chloride 101 mmol/L (98-108); Cholesterol 261 mg/dL (0-200); Estimated Glomerular Filt Rate > 60; Glucose 131 mg/dL (70-99); HDL Direct 43 mg/dL (40-60); LDL Cholesterol Calculated 190 mg/dL (<130); Osmolality Calculated 285 mOsm/kg (285-295); Potassium 4.3 mmol/L (3.5-5.1); Sodium 137 mmol/L (136-145); Total Protein 7.7 g/dL (6.4-8.2); Triglycerides 138 mg/dL (0-150); Vitamin B12 260 pg/mL (193-986)
[2020-07-25 12:11] LABS: Vitamin D 25 Hydroxy 16 ng/mL (30-100)
== END 2020-07-21 11:51 | disposition home or self-care (01) ==
LOC: CHSLAB 11:55
PROVIDERS: PCP Nurse Practitioner Family; Visit Provider Nurse Practitioner Family
DX: E78.5 Hyperlipidemia, unspecified (principal); E11.69 Type 2 diabetes mellitus with other specified complication; R53.83 Other fatigue; Z12.11 Encounter for screening for malignant neoplasm of colon; Z12.12 Encounter for screening for malignant neoplasm of rectum; Z79.899 Other long term (current) drug therapy; E55.9 Vitamin D deficiency, unspecified
CPT/HCPCS: 36415; 80053; 80061; 82306; 82607; 83036; 85025

== ENCOUNTER 2020-08-09 11:46 | Emergency (ER) | payer OTHER, SELFPAY ==
[2020-08-09 12:09] VITALS: BP 152/83; PULSE 98; RESP 20; TEMP 37; O2SAT 96
--- NOTE | 2020-08-09 12:41 | ECG_ITS ---
Measurements Intervals [place] Rate: 85 P: 28 [place]: 171 QRS: -5 QRSD: 106 T: 50 QT: 314 QTc: 375 Interpretive Statements SINUS RHYTHM VOLTAGE CRITERIA FOR LVH ST ELEVATION IN DIFFUSE LEADS- PROBABLY EARLY REPOLARIZATION BASELINE ARTIFACT- I, II, III, AVR, AVL, AVF, V1-V6 BORDERLINE ECG Electronically Signed On 08-10-2020 6:58:52 CDT by Rogelio Patricio D.O.
--- NOTE | 2020-08-09 12:44 | ED.DIZZY ---
HPI - Dizziness General Chief Complaint: Recheck/Abnormal Lab/Rx Stated Complaint: High BP Source: patient Mode of arrival: ambulatory Limitations: no limitations History of Present Illness HPI Narrative: Pt states that he has a very hard time with seasonal alleriges, and this year has been no exception. He has been having a rough time, and taking claritin and singulair. He also take allergy shots. starting on he began to notice that when he changed positions he became very dizzy. On monday, he noted his right eye get red and irritated, and he said he gets this at least once or twice a year. He has also been having episodes of shakiness occasions as well over last few days. Pt has just been seen in the , and they used a small BP cuff and told him the BP was in stroke range and sent him to the ED MD elicited complaint: dizziness (he states a true spinning sensation) Timing: intermittent and episodic Severity: severe Description: room spinning Exacerbating factors: movement/ambulation and change in body position Relieving factors: remaining still Associated symptoms: denies other symptoms Related Data Home Medications Medication Instructions Recorded Confirmed tiotropium bromide 2.5 2 puff INHALATION DAILY 03/02/20 08/09/20 mcg/actuation mist for inhalation albuterol sulfate 90 mcg/actuation 4 inhalation INHALATION Q8H PRN gm 03/24/20 08/09/20 aerosol inhaler budesonide-formoterol HFA 160 2 puff INHALATION Q12H 03/24/20 08/09/20 mcg-4.5 mcg/actuation aerosol inhaler montelukast 10 mg tablet 10 mg PO DAILY 03/24/20 08/09/20 Allergies Allergy/AdvReac Type Severity Reaction Status Date / Time Contrast Media Allergy Intermediate Itching Uncoded 03/27/20 15:29 Iodinated Glycerol Allergy Intermediate Uncoded 03/27/20 15:29 Review of Systems Review of Systems: All systems reviewed & are unremarkable except as noted in HPI and below Constitutional: Constitutional: Reports no additional constitutional complaints Eyes: Comments: pt was seen at urgent care for pink eye ENT: Reports system reviewed and no additional complaints, except as documented Cardiovascular: Cardiovascular: Reports no additional cardiovascular complaints Respiratory: Comments: pt has asthma and allergies, but sxs are normal for this time of year Gastrointestinal: Gastrointestinal: Reports no additional gastrointestinal complaints Musculoskeletal: Musculoskeletal: Reports no additional musculoskeletal complaints Integumentary/Breasts: Skin/Breast: Reports system reviewed and no additional complaints, except as docu Neurologic: Reports as per HPI, Denies confusion, Reports vertigo, Denies dizziness, Denies syncope, Denies headache(s), Denies focal weakness, Denies numbness and Denies weakness Comments: gets headaches when he takes albuterol, but this is normal for him Psychiatric: Psychiatric: Reports no additional psychiatric complaints Endocrine: Endocrine: Reports no additional endocrine complaints Hematologic/Lymphatic: Hematologic/Lymphatic: Reports no additional hematologic/lymphatic complaints Allergic/Immunologic: Allergic/Immunologic: Reports no additional allergic/immunologic complaints PMFSH Past Medical History Medical History Bilateral lower extremity edema Cellulitis Chest pain COPD (chronic obstructive pulmonary disease) Cough Gout attack Hyperlipidemia associated with type 2 diabetes mellitus Hypothyroidism Left knee pain Loss of taste Migraine with aura and without status migrainosus Nonalcoholic fatty liver disease Obesity, morbid, BMI 50 or higher NABILA (obstructive sleep apnea) Pilonidal cyst Primary osteoarthritis of left knee Sore throat Type 2 diabetes mellitus with hypertriglyceridemia Surgical History Surgical History History of fasciotomy (~2010) History of left heart c
[2020-08-09 12:50] VITALS: BP 141/71; PULSE 88
[2020-08-09 12:51] VITALS: BP 152/80
[2020-08-09 12:52] VITALS: BP 149/83; PULSE 89
[2020-08-09 12:54] VITALS: BP 161/88
[2020-08-09 13:17] LABS: Basophils Absolute Auto 0.02 K/mm3 (0.00-0.10); Basophils Percent Auto 0.2 % (0.0-1.0); Eosinophils Absolute Auto 0.03 K/mm3 (0.02-0.50); Eosinophils Percent Auto 0.3 % (1.0-6.0); Hematocrit 43.5 % (40.0-54.0); Hemoglobin 14.5 g/dL (14.0-18.0); Immature Granulocyte Absolute 0.04 K/mm3 (0.00-0.00); Immature Granulocyte Percent A 0.4 % (0.0-0.0); Lymphocytes Absolute Auto 1.93 K/mm3 (1.10-4.50); Mean Corpuscular HGB Conc 33.3 g/dL (32.0-36.0); Mean Corpuscular Hemoglobin 31.2 pg (27.0-31.0); Mean Corpuscular Volume 93.5 fL (78.0-102.0); Mean Platelet Volume 8.5 fl (8.7-11.0); Monocytes Absolute Auto 0.55 K/mm3 (0.10-0.90); Neutrophils Absolute Auto 6.6 K/mm3 (1.7-7.2); Neutrophils Percent Auto 72.1 % (50.0-70.0); Platelet Count Result 225 K/mm3 (150-420); Red Blood Count 4.65 M/mm3 (4.70-6.10); Red Cell Distribution Width 12.8 % (11.6-14.4); White Blood Count 9.2 K/mm3 (4.8-10.8)
[2020-08-09 13:35] LABS: Alanine Aminotransferase 31 U/L (16-63); Albumin Level 3.7 g/dL (3.4-5.0); Alkaline Phosphatase 73 U/L (46-116); Anion Gap 8 mmol/L (8-16); Aspartate Amino Transferase 13 U/L (15-37); Bilirubin,Total 0.5 mg/dL (0.00-1.00); Blood Urea Nitrogen 13 mg/dL (7-18); Calcium 9.2 mg/dL (8.5-10.1); Carbon Dioxide 30 mmol/L (21-32); Chloride 101 mmol/L (98-108); Estimated CRCL calculation 152 ml/min; Estimated Glomerular Filt Rate > 60; Glucose 107 mg/dL (70-99); Magnesium 1.8 mg/dL (1.8-2.4); Osmolality Calculated 288 mOsm/kg (285-295); Potassium 3.7 mmol/L (3.5-5.1); Sodium 139 mmol/L (136-145); Total Protein 7.4 g/dL (6.4-8.2)
[2020-08-09 13:36] LABS: Troponin I < 0.02 ng/mL (0.00-0.056)
[2020-08-09 13:46] VITALS: BP 147/85; PULSE 87; RESP 20; O2SAT 98
== END 2020-08-09 13:55 | disposition home or self-care (01) ==
PROVIDERS: Emergency Provider Emergency Medicine; PCP Nurse Practitioner Family
DX: H81.10 Benign paroxysmal vertigo, unspecified ear (principal)
CPT/HCPCS: 36415; 80053; 83735; 84484; 85025; 93005; 99283; 99284

== ENCOUNTER 2020-09-17 16:55 | Outpatient (CLI) | payer OTHER, SELFPAY ==
[2020-09-17 17:32] LABS: SARS-CoV-2 Ag Positive (Negative)
== END 2020-09-17 16:56 | disposition home or self-care (01) ==
LOC: CHSLAB 16:59
PROVIDERS: PCP Family Medicine; Visit Provider Nurse Practitioner Family
DX: U07.1 COVID-19 (principal)
CPT/HCPCS: 87426

== ENCOUNTER 2020-10-28 18:03 | Outpatient (CLI) | payer OTHER, SELFPAY ==
[2020-10-28 19:09] LABS: Hemoglobin A1C 6.3 % (<5.7)
== END 2020-10-28 18:04 | disposition home or self-care (01) ==
LOC: CHSLAB 18:06
PROVIDERS: PCP Nurse Practitioner Family; Visit Provider Nurse Practitioner Family
DX: E11.9 Type 2 diabetes mellitus without complications (principal)
CPT/HCPCS: 36415; 83036

== ENCOUNTER 2020-12-22 08:31 | Emergency (ER) | payer OTHER, SELFPAY ==
--- NOTE | ~2020-12-22 | XR_ITS ---
EXAMINATION: XR knee RT 3V DATE: 12/22/2020 09:03 INDICATION: Right knee injury TECHNIQUE: Anteroposterior, oblique and crosstable lateral views of the right knee were obtained COMPARISON: None. FINDINGS: Alignment is normal. No fracture. No joint effusion/layering lipohemarthrosis. Soft tissues are unre markable. IMPRESSION: 1. Negative right knee radiographs. Reviewed, dictated and finalized at location A. FOLIO ASSISTANT
--- NOTE | 2020-12-22 08:39 | ED.LOWEXIN ---
HPI - Extremity Injury (Lower) General Chief Complaint: Extremity Injury, Lower Stated Complaint: knee injury Time Seen by Provider: 12/22/20 08:38 Related Data Home Medications Medication Instructions Recorded Confirmed albuterol sulfate 90 mcg/actuation 4 inhalation INHALATION Q8H PRN gm 03/24/20 10/05/20 aerosol inhaler montelukast 10 mg tablet 10 mg PO DAILY 03/24/20 10/05/20 omalizumab 150 mg/mL subcutaneous syr SUBCUT 09/16/20 10/05/20 syringe azithromycin 500 mg tablet 1,000 mg PO BID tablet 09/28/20 10/05/20 zinc sulfate 220 mg PO DAILY cap 09/28/20 10/05/20 Allergies Allergy/AdvReac Type Severity Reaction Status Date / Time Contrast Media Allergy Intermediate Itching Uncoded 10/05/20 09:44 Iodinated Glycerol Allergy Intermediate Unknown Uncoded 10/05/20 09:44 PMF Past Medical History Medical History Benign essential hypertension Bilateral lower extremity edema Cellulitis Chest pain Conjunctivitis COPD (chronic obstructive pulmonary disease) Cough Gout attack Hyperlipidemia associated with type 2 diabetes mellitus Hypothyroidism Left knee pain Loss of taste Migraine with aura and without status migrainosus Nonalcoholic fatty liver disease Obesity, morbid, BMI 50 or higher NABILA (obstructive sleep apnea) Pilonidal cyst Primary osteoarthritis of left knee Sore throat Type 2 diabetes mellitus with hypertriglyceridemia Surgical History Surgical History History of fasciotomy (~2010) History of left heart catheterization (LHC) History of oral surgery (~2001) Oral Extractions Social History Social History Smoking status: Never smoker Alcohol intake: never Substance use: never Gender identity (if verbalized by the patient): Male Spiritual care concerns: No Agree to blood products: Yes Discharge Plan Discharge Prescriptions: No Action albuterol sulfate [ProAir HFA] 90 mcg/actuation HFA aerosol inhaler 4 inhalation INHALATION Q8H PRN (Reason: Shortness Of Breath) RF: 0 montelukast 10 mg tablet 10 mg PO DAILY RF: 0 Xolair 150 mg/mL syringe subcut RF: 0 lidocaine 5 % adhesive patch,medicated 2 patch topical DAILY Qty: 30 RF: 0 azithromycin 500 mg tablet 1,000 mg PO BID RF: 0 zinc sulfate 220 (50) mg capsule 220 mg PO DAILY RF: 0 sulfamethoxazole-trimethoprim [Bactrim DS] 800-160 mg tablet 1 tablet PO Q12H Qty: 14 RF: 0 albuterol sulfate 1.25 mg/3 mL solution for nebulization See Rx Instructions .ROUTE .COMPLEX Qty: 75 RF: 1 Trulicity 1.5 mg/0.5 mL pen injector See Rx Instructions .ROUTE .COMPLEX Qty: 2 RF: 2 cyclobenzaprine 10 mg tablet See Rx Instructions .ROUTE .COMPLEX Qty: 20 RF: 3 diclofenac sodium 50 mg tablet,delayed release (DR/EC) 50 mg PO TID PRN (Reason: pain) Qty: 60 RF: 0 furosemide [Lasix] 20 mg tablet 20 mg PO QAM Qty: 30 RF: 2 lisinopril 20 mg tablet See Rx Instructions .ROUTE .COMPLEX Qty: 30 RF: 5 levothyroxine 150 mcg tablet See Rx Instructions .ROUTE .COMPLEX Qty: 30 RF: 2 hydrocodone-acetaminophen 5-325 mg tablet 1 tablet PO Q8H PRN (Reason: pain (scale score 7-10)) Qty: 12 RF: 0 cholecalciferol (vitamin D3) 50 mcg (2,000 unit) capsule 50 mcg PO DAILY Qty: 90 RF: 1 atorvastatin 20 mg tablet See Rx Instructions .ROUTE .COMPLEX Qty: 30 RF: 2
[2020-12-22 08:44] VITALS: BP 151/102; PULSE 110; RESP 18; TEMP 36.8; O2SAT 97
--- NOTE | 2020-12-22 09:59 | ED.GENADULT ---
HPI - General Adult General Chief complaint: Extremity Injury, Lower Stated complaint: knee injury Time Seen by Provider: 12/22/20 08:38 Source: patient Mode of arrival: ambulatory Limitations: no limitations History of Present Illness HPI narrative: Patient is a 45-year-old male who presents to emergency department for evaluation of right knee pain that began while attempting to get dressed this morning patient twisted and felt a pop in the knee is since had moderate aching pain patient has difficulty bearing weight. Patient notes that he has an outside orthopedist that he is followed by. Patient denies other injuries or complaints. Related Data Home Medications Medication Instructions Recorded Confirmed albuterol sulfate 90 mcg/actuation 4 inhalation INHALATION Q8H PRN gm 03/24/20 10/05/20 aerosol inhaler montelukast 10 mg tablet 10 mg PO DAILY 03/24/20 10/05/20 omalizumab 150 mg/mL subcutaneous syr SUBCUT 09/16/20 10/05/20 syringe azithromycin 500 mg tablet 1,000 mg PO BID tablet 09/28/20 10/05/20 zinc sulfate 220 mg PO DAILY cap 09/28/20 10/05/20 Allergies Allergy/AdvReac Type Severity Reaction Status Date / Time Contrast Media Allergy Intermediate Itching Uncoded 10/05/20 09:44 Iodinated Glycerol Allergy Intermediate Unknown Uncoded 10/05/20 09:44 Review of Systems Review of Systems: All systems reviewed & are unremarkable except as noted in HPI and below PMFSH Past Medical History Medical History Benign essential hypertension Bilateral lower extremity edema Cellulitis Chest pain Conjunctivitis COPD (chronic obstructive pulmonary disease) Cough Gout attack Hyperlipidemia associated with type 2 diabetes mellitus Hypothyroidism Left knee pain Loss of taste Migraine with aura and without status migrainosus Nonalcoholic fatty liver disease Obesity, morbid, BMI 50 or higher NABILA (obstructive sleep apnea) Pilonidal cyst Primary osteoarthritis of left knee Sore throat Type 2 diabetes mellitus with hypertriglyceridemia Surgical History Surgical History History of fasciotomy (~2010) History of left heart catheterization (LHC) History of oral surgery (~2001) Oral Extractions Social History Social History Smoking status: Never smoker Alcohol intake: never Substance use: never Gender identity (if verbalized by the patient): Male Spiritual care concerns: No Agree to blood products: Yes Exam Narrative: Exam Narrative: GENERAL: Well-appearing, morbidly obese, and in no acute distress. HEAD: Normocephalic, atraumatic. EYES: PERRLA and EOMI. ENT: Nares clear, no rhinorrhea or epistaxis. Mucous membranes moist. CHEST: Clear to auscultation. No respiratory distress. No wheezes rales or rhonchi HEART: Regular rate and rhythm. No murmur heard. EXTREMITIES: Tenderness of the right knee difficult to assess swelling secondary to obesity SKIN: Warm, dry, no rash. NEURO: No focal deficits. Alert and oriented x3. Neurovascularly intact PSYCH: Normal mood and affect. Course Course Emergency Course: Patient will be placed in Julián wrap with follow-up with his orthopedic surgeon felt appropriate for outpatient reevaluation Vital Signs Vital signs: Vital Signs Temperature 98.3 F 12/22/20 08:44 Pulse Rate 110 H 12/22/20 08:44 Respiratory Rate 18 12/22/20 08:44 Blood Pressure 151/102 H 12/22/20 08:44 Pulse Oximetry 97 12/22/20 08:44 Temperature 98.3 F 12/22/20 08:44 Pulse Rate 110 H 12/22/20 08:44 Respiratory Rate 18 12/22/20 08:44 Blood Pressure 151/102 H 12/22/20 08:44 Pulse Oximetry 97 12/22/20 08:44 Medical Decision Making MDM Narrative Medical decision making narrative: Patients injury or pain is consistent with musculoskeletal etiology. No signs of neurological or vascular compromise
== END 2020-12-22 10:54 | disposition home or self-care (01) ==
PROVIDERS: Emergency Provider Emergency Medicine; PCP Nurse Practitioner Family
DX: M25.561 Pain in right knee (principal); I10 Essential (primary) hypertension; J44.9 Chronic obstructive pulmonary disease, unspecified; E11.9 Type 2 diabetes mellitus without complications; M10.9 Gout, unspecified; E78.5 Hyperlipidemia, unspecified; E03.9 Hypothyroidism, unspecified; E78.1 Pure hyperglyceridemia; K76.0 Fatty (change of) liver, not elsewhere classified; E66.01 Morbid (severe) obesity due to excess calories; M17.12 Unilateral primary osteoarthritis, left knee
CPT/HCPCS: 73562; 99283

== ENCOUNTER 2021-01-19 12:03 | Outpatient (CLI) | payer OTHER, SELFPAY ==
--- NOTE | ~2021-01-19 | US_ITS ---
US abdomen complete EXAMINATION: US Abdomen Complete INDICATION: Right upper quadrant pain PROCEDURE: Realtime High Resolution abdomen ultrasound. COMPARISON: No prior studies for comparison FINDINGS: Gallbladder is not well visualized due to bowel gas. Common bile duct measures 4.5 mm. Liver echotexture is increased, consistent with fatty infiltration.. Pancreas not well visualized du e to bowel gas. Pancreatic tail is obscured by bowel gas. Spleen is unremarkeable. Renal echotexture is within normal limits bilaterally without hydronephrosis, contour deforming mass or renal stone. R ight kidney measures 10.5 cm. Left kidney measures 13.5 cm. Visualized aspects of the aorta and IVC are within normal limits. Portal vein is patent. No sonograph ic Adams's sign indicated by the technologist. IMPRESSION: 1: Limited abdominal ultrasound. Fatty infiltration of the liver. Gallbladder not adequately visualiz ed. Reviewed, dictated and finalized at location A. IMPRESSION: 1: Limited abdominal ultrasound. Fatty infiltration of the liver. Gallbladder n ot adequately visualized.
[2021-01-19 12:18] LABS: Basophils Absolute Auto 0.02 K/mm3 (0.00-0.10); Basophils Percent Auto 0.3 % (0.0-1.0); Eosinophils Absolute Auto 0.06 K/mm3 (0.02-0.50); Eosinophils Percent Auto 0.8 % (1.0-6.0); Hematocrit 41.9 % (40.0-54.0); Hemoglobin 13.9 g/dL (14.0-18.0); Immature Granulocyte Absolute 0.02 K/mm3 (0.00-0.00); Immature Granulocyte Percent A 0.3 % (0.0-0.0); Lymphocytes Absolute Auto 1.68 K/mm3 (1.10-4.50); Lymphocytes Percent Auto 21.2 % (18.0-42.0); Mean Corpuscular HGB Conc 33.2 g/dL (32.0-36.0); Mean Corpuscular Hemoglobin 30.8 pg (27.0-31.0); Mean Corpuscular Volume 92.7 fL (78.0-102.0); Mean Platelet Volume 8.9 fl (8.7-11.0); Monocytes Absolute Auto 0.43 K/mm3 (0.10-0.90); Monocytes Percent Auto 5.4 % (2.0-11.0); Neutrophils Absolute Auto 5.7 K/mm3 (1.7-7.2); Platelet Count Result 222 K/mm3 (150-420); Red Blood Count 4.52 M/mm3 (4.70-6.10); Red Cell Distribution Width 12.5 % (11.6-14.4); White Blood Count 7.9 K/mm3 (4.8-10.8)
[2021-01-19 13:05] LABS: Alanine Aminotransferase 38 U/L (16-63); Albumin Level 3.6 g/dL (3.4-5.0); Alkaline Phosphatase 67 U/L (46-116); Amylase 38 U/L (25-115); Anion Gap 9 mmol/L (8-16); Aspartate Amino Transferase 20 U/L (15-37); Bilirubin,Total 0.5 mg/dL (0.00-1.00); Blood Urea Nitrogen 9 mg/dL (7-18); Calcium 9.2 mg/dL (8.5-10.1); Carbon Dioxide 29 mmol/L (21-32); Chloride 99 mmol/L (98-108); Cholesterol 139 mg/dL (0-200); Estimated Glomerular Filt Rate > 60; Free T4 Free Thyroxine 1.23 ng/dL (0.76-1.46); Glucose 95 mg/dL (70-99); HDL Direct 40 mg/dL (40-60); LDL Cholesterol Calculated 73 mg/dL (<130); Lipase 64 U/L (73-393); Osmolality Calculated 282 mOsm/kg (285-295); Potassium 4.1 mmol/L (3.5-5.1); Sodium 137 mmol/L (136-145); Thyroid Stimulating Hormone 3.21 uIU/mL (0.36-3.74); Total Protein 7.4 g/dL (6.4-8.2); Triglycerides 129 mg/dL (0-150)
[2021-01-22 12:26] LABS: Vitamin D 25 Hydroxy 34 ng/mL (30-100)
== END 2021-01-19 12:04 | disposition home or self-care (01) ==
LOC: CHSLAB 12:07
PROVIDERS: PCP Nurse Practitioner Family; Visit Provider Nurse Practitioner Family
DX: R11.2 Nausea with vomiting, unspecified (principal); R10.11 Right upper quadrant pain; E03.9 Hypothyroidism, unspecified; E11.69 Type 2 diabetes mellitus with other specified complication; E78.5 Hyperlipidemia, unspecified; Z79.899 Other long term (current) drug therapy; E55.9 Vitamin D deficiency, unspecified
CPT/HCPCS: 36415; 76700; 80053; 80061; 82150; 82306; 83690; 84439; 84443; 85025

== ENCOUNTER 2021-02-23 07:52 | Outpatient (CLI) | payer OTHER, SELFPAY ==
[2021-02-23 08:12] LABS: Hemoglobin A1C 6.3 % (<5.7)
== END 2021-02-23 07:53 | disposition home or self-care (01) ==
LOC: CHSLAB 07:55
PROVIDERS: PCP Nurse Practitioner Family; Visit Provider Nurse Practitioner Family
DX: E11.9 Type 2 diabetes mellitus without complications (principal)
CPT/HCPCS: 36415; 83036

== ENCOUNTER 2021-05-13 08:56 | Outpatient (CLI) | payer BC, SELFPAY ==
[2021-05-15 09:19] LABS: TB Skin Test Erythema 0 mm; TB Skin Test Induration 0 mm (0-10); TB Skin Test Interpretation Negative (Negative); TB Skin Test Site Left Arm
== END 2021-05-13 08:57 | disposition home or self-care (01) ==
LOC: CHSLAB 08:59
PROVIDERS: PCP Nurse Practitioner Family; Visit Provider Nurse Practitioner Family
DX: Z02.1 Encounter for pre-employment examination (principal)
CPT/HCPCS: 36415; 86580

== ENCOUNTER 2021-06-25 12:39 | Outpatient (CLI) | payer BC, SELFPAY ==
[2021-06-25 13:08] LABS: Hemoglobin A1C 6.7 % (<5.7)
[2021-06-28 10:59] LABS: Vitamin D 25 Hydroxy 22 ng/mL (30-100)
== END 2021-06-25 12:40 | disposition home or self-care (01) ==
LOC: CHSLAB 12:42
PROVIDERS: PCP Nurse Practitioner Family; Visit Provider Nurse Practitioner Family
DX: E11.9 Type 2 diabetes mellitus without complications (principal); Z79.899 Other long term (current) drug therapy
CPT/HCPCS: 36415; 82306; 83036

== ENCOUNTER 2021-08-24 08:41 | Outpatient (CLI) | payer BC, SELFPAY ==
--- NOTE | ~2021-08-24 | XR_ITS ---
EXAMINATION: XR chest 2V EXAM DATE: 08/24/2021 09:37 INDICATION: COPD, emphysema, checking for pneumonia. TECHNIQUE: Frontal and lateral projections of the chest obtained and reviewed. Comparison is made to prior examination from 02/19/2020. FINDINGS: The lungs are clear. There are no pleural effusions. The cardiomediastinal silhouette is within normal limits. There is no pneumothorax suspected. The bones and soft tissues are unremarkab le. IMPRESSION: No acute cardiopulmonary findings. Reviewed, dictated and finalized at location B.
[2021-08-24 10:23] LABS: Thyroid Stimulating Hormone 3.18 uIU/mL (0.36-3.74)
[2021-08-26 14:31] LABS: Vitamin D 25 Hydroxy 34 ng/mL (30-100)
== END 2021-08-24 08:42 | disposition home or self-care (01) ==
LOC: CHSLAB 08:44
PROVIDERS: PCP Nurse Practitioner Family; Visit Provider Nurse Practitioner Family
DX: J44.9 Chronic obstructive pulmonary disease, unspecified (principal); E55.9 Vitamin D deficiency, unspecified; E03.9 Hypothyroidism, unspecified
CPT/HCPCS: 36415; 71046; 82306; 84443

== ENCOUNTER 2021-08-25 14:48 | Emergency (ER) | payer BC, SELFPAY ==
--- NOTE | ~2021-08-25 | XR_ITS ---
EXAMINATION: XR chest 2V 08/25/2021 16:30 INDICATION: Chest pressure and shortness of breath PROCEDURE: 2 view chest COMPARISON: Comparison to multiple prior studies sequentially, with oldest reviewed study dated 04/09. FINDINGS: The lungs are clear. The cardiomediastinal silhouette is within normal limits. There are no pleural effusions. There is no pneumothorax suspected. IMPRESSION: 1: NO ACUTE CARDIOPULMONARY DISEASE. Reviewed, dictated and finalized at location A.
--- NOTE | 2021-08-25 14:54 | ECG_ITS ---
Measurements Intervals [place] Rate: 93 P: 34 [place]: 168 QRS: -7 QRSD: 110 T: 48 QT: 309 QTc: 385 Interpretive Statements SINUS RHYTHM ST ELEVATION IN ANTEROLATERAL LEADS, PROBABLY EARLY REPOLARIZATION BASELINE ARTIFACT- II, III, AVR, AVF, V3 BORDERLINE ECG Electronically Signed On 08-25-2021 16:01:35 CDT by Rogelio Patricio D.O.
[2021-08-25 15:02] VITALS: BP 142/91; PULSE 93; RESP 20; TEMP 35.9; O2SAT 97
--- NOTE | 2021-08-25 15:13 | ED.GENADULT ---
HPI - General Adult General Chief complaint: Chest Pain Stated complaint: trouble breathing, chest pain Source: patient Mode of arrival: ambulatory Limitations: no limitations History of Present Illness HPI narrative: Juan Ramon is a 46M with a PMH of COPD, BPPV, HTN, OA, NABILA, DMII, hypothyroidism, and obesity that presented to clinic with chest pressure and SOB. He has been short of breath and fatigued for several days. He saw his regular provider yesterday and had a normal CXR and was treated for a COPD exacerbation. His SOB and exercise intolerance got worse today. Now he is light headed and has chest pressure. No vomiting reported. Related Data Home Medications Medication Instructions Recorded Confirmed albuterol sulfate 90 mcg/actuation 4 inhalation INHALATION Q8H PRN gm 03/24/20 10/05/20 aerosol inhaler montelukast 10 mg tablet 10 mg PO DAILY 03/24/20 10/05/20 omalizumab 150 mg/mL subcutaneous syr SUBCUT 09/16/20 10/05/20 syringe zinc sulfate 50 mg zinc (220 mg) 220 mg PO DAILY cap 09/28/20 10/05/20 capsule Allergies Allergy/AdvReac Type Severity Reaction Status Date / Time Contrast Media Allergy Intermediate Itching Uncoded 08/25/21 15:02 Iodinated Glycerol Allergy Intermediate Unknown Uncoded 08/25/21 15:02 Review of Systems Constitutional: Constitutional: Reports fatigue and Reports weakness Eyes: Eyes: Reports no additional eye complaints ENT: Reports system reviewed and no additional complaints, except as documented Cardiovascular: Cardiovascular: Reports as per HPI Respiratory: Respiratory: Reports as per HPI Gastrointestinal: Gastrointestinal: Reports no additional gastrointestinal complaints Genitourinary: Genitourinary: Reports no additional male genitourinary complaints Musculoskeletal: Musculoskeletal: Reports no additional musculoskeletal complaints Integumentary/Breasts: Skin/Breast: Reports system reviewed and no additional complaints, except as docu Neurologic: Reports system reviewed and no additional complaints, except as documented Psychiatric: Psychiatric: Reports no additional psychiatric complaints Endocrine: Endocrine: Reports no additional endocrine complaints Hematologic/Lymphatic: Hematologic/Lymphatic: Reports no additional hematologic/lymphatic complaints Allergic/Immunologic: Allergic/Immunologic: Reports no additional allergic/immunologic complaints [facility] Past Medical History Medical History Benign essential hypertension Bilateral lower extremity edema Cellulitis Chest pain Conjunctivitis COPD (chronic obstructive pulmonary disease) Cough Gout attack Hyperlipidemia associated with type 2 diabetes mellitus Hypothyroidism Left knee pain Loss of taste Migraine with aura and without status migrainosus Nonalcoholic fatty liver disease Obesity, morbid, BMI 50 or higher NABILA (obstructive sleep apnea) Pilonidal cyst Primary osteoarthritis of left knee Sore throat Type 2 diabetes mellitus with hypertriglyceridemia Surgical History Surgical History History of fasciotomy (~2010) History of left heart catheterization (LHC) History of oral surgery (~2001) Oral Extractions Social History Social History Smoking status: Never smoker Alcohol intake: never Substance use: never Gender identity (if verbalized by the patient): Male Spiritual care concerns: No Agree to blood products: Yes Exam Const: General: no acute distress and alert; No confusion Orientation/consciousness: patient oriented x3 Limitations: No altered mental status HENMT: Head: normal to inspection Mouth: Yes Normal oral and palatal mucosa present Other: normocephalic, atrauamtic Eyes: Conjunctivae: conjunctivae normal Pupils: Equal, round and reactive pupils present Neck: Neck: normal visual inspection Chest:
[2021-08-25] MEDS: ASPIRIN 81 MG CHEWABLE TABLET 324 MG PO (15:34)
[2021-08-25 15:39] LABS: Basophils Absolute Auto 0.01 K/mm3 (0.00-0.10); Basophils Percent Auto 0.1 % (0.0-1.0); Eosinophils Absolute Auto 0.01 K/mm3 (0.02-0.50); Eosinophils Percent Auto 0.1 % (1.0-6.0); Hematocrit 39.7 % (40.0-54.0); Hemoglobin 13.4 g/dL (14.0-18.0); Immature Granulocyte Absolute 0.13 K/mm3 (0.00-0.00); Immature Granulocyte Percent A 1.4 % (0.0-0.0); Lymphocytes Absolute Auto 0.98 K/mm3 (1.10-4.50); Lymphocytes Percent Auto 10.5 % (18.0-42.0); Mean Corpuscular HGB Conc 33.8 g/dL (32.0-36.0); Mean Corpuscular Hemoglobin 31.1 pg (27.0-31.0); Mean Corpuscular Volume 92.1 fL (78.0-102.0); Mean Platelet Volume 8.9 fl (8.7-11.0); Monocytes Absolute Auto 0.22 K/mm3 (0.10-0.90); Monocytes Percent Auto 2.4 % (2.0-11.0); Neutrophils Percent Auto 85.5 % (50.0-70.0); Platelet Count Result 254 K/mm3 (150-420); Red Blood Count 4.31 M/mm3 (4.70-6.10); Red Cell Distribution Width 12.9 % (11.6-14.4); White Blood Count 9.3 K/mm3 (4.8-10.8)
[2021-08-25] MEDS: ALBUTEROL SULFATE (*SP) INHALER 2 PUFF INHALATION (15:40)
[2021-08-25 15:45] VITALS: PULSE 88; RESP 24; O2SAT 96
[2021-08-25 15:50] VITALS: PULSE 88; RESP 24; O2SAT 97
[2021-08-25 15:59] LABS: D Dimer 0.58 mg/L (0.19-0.50)
--- NOTE | 2021-08-25 15:59 | PC.NURSE ---
Lab called with D-Dimer of 0.58. Dr. English notified.
[2021-08-25 16:03] LABS: Alanine Aminotransferase 42 U/L (16-63); Albumin Level 3.4 g/dL (3.4-5.0); Alkaline Phosphatase 76 U/L (46-116); Anion Gap 12 mmol/L (8-16); Aspartate Amino Transferase 26 U/L (15-37); Bilirubin,Total 0.3 mg/dL (0.00-1.00); Blood Urea Nitrogen 12 mg/dL (7-18); Calcium 8.7 mg/dL (8.5-10.1); Carbon Dioxide 26 mmol/L (21-32); Chloride 100 mmol/L (98-108); Estimated CRCL calculation 158 ml/min; Estimated Glomerular Filt Rate > 60; Glucose 189 mg/dL (70-99); NT Pro B Type Natriuretic Pept 49 pg/mL (0-125); Osmolality Calculated 290 mOsm/kg (285-295); Potassium 4.2 mmol/L (3.5-5.1); Sodium 138 mmol/L (136-145); Total Protein 7.6 g/dL (6.4-8.2)
[2021-08-25 16:17] LABS: Influenza A QL RT-PCR Negative (Negative); Influenza B QL RT-PCR Negative (Negative); SARS-CoV-2 RNA PCR Negative (Negative)
--- NOTE | 2021-08-25 16:45 | PC.NURSE ---
Pt sitting up in bed, resting comfortably at this time. Denies any needs or complaints.
[2021-08-25 16:46] VITALS: BP 139/83; PULSE 94; RESP 18; O2SAT 95
[2021-08-25] MEDS: HYDROcodone/acetaminophen (*CRX) 5-325 MG TABLET 1 TAB PO (17:15)
[2021-08-25] MEDS: ENOXAPARIN 100 MG/ML SYRINGE (17:16)
[2021-08-25] MEDS: ENOXAPARIN 120 MG/0.8 ML SYRINGE (17:16)
--- NOTE | 2021-08-25 17:53 | PC.NURSE ---
Spoke to Kaylah at [facility] regarding pt prescription for lovenox. Pt called stating it was not available. Per Dr. English wanted prescription changed to 200 mg dose x 2 doses. Telephone ordered given to Kaylah at [facility] who read order back and stated she would notify the patient.
== END 2021-08-25 17:22 | disposition home or self-care (01) ==
PROVIDERS: Emergency Provider Family Medicine; PCP Nurse Practitioner Family
DX: R06.02 Shortness of breath (principal); Z20.822 Contact with and (suspected) exposure to COVID-19
CPT/HCPCS: 36415; 71046; 80053; 83605; 83880; 84484; 85025; 85380; 85610; 87502; 93005; 94640; 99283; 99284; A9270; C9803; J1650; U0003; U0005

== ENCOUNTER 2021-08-26 09:55 | Outpatient (CLI) | payer BC, SELFPAY ==
--- NOTE | ~2021-08-26 | CT_ITS ---
EXAMINATION: CTA chest PE protocol DATE: 08/26/2021 10:47 INDICATION: Left chest pain. Shortness of breath. TECHNIQUE: Computed tomography angiography (CTA) of the chest was performed with 150 mL Omnipaque-350 intravenous contrast timed to evaluate the pulmonary arteries. Coronal maximum intensity projection 3D-reconstructions were created by the technologist. Automated exposure control and iterative reconst ruction technique were employed. The dose-length product was 2001.20 mGy-cm. COMPARISON: Chest CT 02/20/2020 FINDINGS: Sensitivity is decreased by obesity. There is focal emphysema involving right lower lobe. T here is mild atelectasis bilaterally. No pleural effusion. The heart size is normal. No pericardial e ffusion. There is poor contrast opacification of the pulmonary arteries. There is no pulmonary embolu s in the main pulmonary artery or left or right main pulmonary arteries. There is mild thoracic spond ylosis. IMPRESSION: 1. No large central pulmonary embolus. Sensitivity is severely decreased by poor contrast opacificati on. 2. Focal emphysema involving right lower lobe. Reviewed, dictated and finalized at location A. IMPRESSION: 1. No large central pulmonary embolus. Sensitivity is severely decreased by poo r contrast opacification. 2. Focal emphysema involving right lower lobe.
== END 2021-08-26 09:56 | disposition home or self-care (01) ==
LOC: CHSIMG 09:56
PROVIDERS: PCP Nurse Practitioner Family; Visit Provider Family Medicine
DX: R09.89 Other specified symptoms and signs involving the circulatory and respiratory systems (principal)
CPT/HCPCS: 71275; Q9967

== ENCOUNTER 2021-11-26 16:59 | Outpatient (CLI) | payer BC, SELFPAY ==
[2021-11-26 17:17] LABS: Basophils Absolute Auto 0.01 K/mm3 (0.00-0.10); Basophils Percent Auto 0.1 % (0.0-1.0); Eosinophils Absolute Auto 0.13 K/mm3 (0.02-0.50); Eosinophils Percent Auto 1.6 % (1.0-6.0); Hematocrit 39.4 % (40.0-54.0); Hemoglobin 13.2 g/dL (14.0-18.0); Immature Granulocyte Absolute 0.03 K/mm3 (0.00-0.00); Immature Granulocyte Percent A 0.4 % (0.0-0.0); Lymphocytes Percent Auto 26.5 % (18.0-42.0); Mean Corpuscular HGB Conc 33.5 g/dL (32.0-36.0); Mean Corpuscular Hemoglobin 31.1 pg (27.0-31.0); Mean Corpuscular Volume 92.7 fL (78.0-102.0); Mean Platelet Volume 8.9 fl (8.7-11.0); Monocytes Percent Auto 7.6 % (2.0-11.0); Neutrophils Percent Auto 63.8 % (50.0-70.0); Platelet Count Result 206 K/mm3 (150-420); Red Blood Count 4.25 M/mm3 (4.70-6.10); Red Cell Distribution Width 12.7 % (11.6-14.4); White Blood Count 7.9 K/mm3 (4.8-10.8)
[2021-11-26 17:44] LABS: Hemoglobin A1C 6.2 % (<5.7)
[2021-11-26 17:50] LABS: Alanine Aminotransferase 39 U/L (16-63); Albumin Level 3.8 g/dL (3.4-5.0); Alkaline Phosphatase 85 U/L (46-116); Anion Gap 8 mmol/L (8-16); Aspartate Amino Transferase 24 U/L (15-37); Bilirubin,Total 0.4 mg/dL (0.00-1.00); Blood Urea Nitrogen 15 mg/dL (7-18); Calcium 9.2 mg/dL (8.5-10.1); Carbon Dioxide 30 mmol/L (21-32); Chloride 100 mmol/L (98-108); Estimated Glomerular Filt Rate > 60; Glucose 130 mg/dL (70-99); Osmolality Calculated 288 mOsm/kg (285-295); Potassium 4.4 mmol/L (3.5-5.1); Sodium 138 mmol/L (136-145); Total Protein 7.1 g/dL (6.4-8.2)
[2021-11-29 20:02] LABS: Vitamin D 25 Hydroxy 32 ng/mL (30-100)
== END 2021-11-26 17:00 | disposition home or self-care (01) ==
LOC: CHSLAB 17:03
PROVIDERS: PCP Nurse Practitioner Family; Visit Provider Nurse Practitioner Family
DX: E11.69 Type 2 diabetes mellitus with other specified complication (principal); E78.5 Hyperlipidemia, unspecified; I10 Essential (primary) hypertension; E78.1 Pure hyperglyceridemia; E55.9 Vitamin D deficiency, unspecified
CPT/HCPCS: 36415; 80053; 82306; 83036; 85025

== ENCOUNTER 2021-12-09 07:07 | Outpatient (CLI) | payer BC, SELFPAY ==
[2021-12-09 08:36] LABS: Free T4 Free Thyroxine 1.16 ng/dL (0.76-1.46); Thyroid Stimulating Hormone 3.78 uIU/mL (0.36-3.74); Vitamin B12 306 pg/mL (193-986)
[2021-12-12 03:21] LABS: Thyroid Peroxidase Antibodies 3 IU/mL (<9)
== END 2021-12-09 07:08 | disposition home or self-care (01) ==
LOC: CHSLAB 07:11
PROVIDERS: PCP Nurse Practitioner Family; Visit Provider Nurse Practitioner Family
DX: E03.9 Hypothyroidism, unspecified (principal); R53.83 Other fatigue
CPT/HCPCS: 36415; 82607; 84439; 84443; 86376

== ENCOUNTER 2021-12-29 17:46 | Outpatient (CLI) | payer BC, SELFPAY ==
--- NOTE | 2021-12-29 17:47 | ECG_ITS ---
Measurements Intervals [place] Rate: 79 P: 53 [place]: 183 QRS: 20 QRSD: 100 T: 55 QT: 313 QTc: 360 Interpretive Statements SINUS RHYTHM LOW QRS VOLTAGE IN PRECORDIAL LEADS [QRS DEFLECTION < 1.0 mV IN CHEST LEADS] SLIGHT ST ELEVATIONS, CONSIDER EARLY REPOLARIZATION ABNORMAL EKG COMPARED TO ECG 08/25/2021 15:01:52 NO SIGNIFICANT CHANGES Electronically Signed On 12-30-2021 9:38:10 TIGHT BARREL INSPECTOR by Param Moody M.D.
[2021-12-29 18:06] LABS: Basophils Absolute Auto 0.03 K/mm3 (0.00-0.10); Basophils Percent Auto 0.4 % (0.0-1.0); Eosinophils Absolute Auto 0.11 K/mm3 (0.02-0.50); Eosinophils Percent Auto 1.4 % (1.0-6.0); Hematocrit 39.3 % (40.0-54.0); Immature Granulocyte Absolute 0.03 K/mm3 (0.00-0.00); Immature Granulocyte Percent A 0.4 % (0.0-0.0); Lymphocytes Absolute Auto 1.93 K/mm3 (1.10-4.50); Lymphocytes Percent Auto 24.1 % (18.0-42.0); Mean Corpuscular HGB Conc 33.1 g/dL (32.0-36.0); Mean Corpuscular Hemoglobin 30.4 pg (27.0-31.0); Mean Corpuscular Volume 91.8 fL (78.0-102.0); Mean Platelet Volume 9.1 fl (8.7-11.0); Monocytes Absolute Auto 0.52 K/mm3 (0.10-0.90); Monocytes Percent Auto 6.5 % (2.0-11.0); Neutrophils Absolute Auto 5.4 K/mm3 (1.7-7.2); Neutrophils Percent Auto 67.2 % (50.0-70.0); Platelet Count Result 221 K/mm3 (150-420); Red Blood Count 4.28 M/mm3 (4.70-6.10); Red Cell Distribution Width 12.9 % (11.6-14.4)
[2021-12-29 18:28] LABS: Alanine Aminotransferase 39 U/L (16-63); Albumin Level 3.6 g/dL (3.4-5.0); Alkaline Phosphatase 83 U/L (46-116); Anion Gap 9 mmol/L (8-16); Aspartate Amino Transferase 32 U/L (15-37); Bilirubin,Total 0.4 mg/dL (0.00-1.00); Blood Urea Nitrogen 12 mg/dL (7-18); Calcium 9.4 mg/dL (8.5-10.1); Carbon Dioxide 29 mmol/L (21-32); Chloride 101 mmol/L (98-108); Estimated Glomerular Filt Rate > 60; Glucose 140 mg/dL (70-99); Osmolality Calculated 289 mOsm/kg (285-295); Potassium 4.9 mmol/L (3.5-5.1); Sodium 139 mmol/L (136-145); Total Protein 7.5 g/dL (6.4-8.2)
== END 2021-12-29 17:47 | disposition home or self-care (01) ==
LOC: CHSLAB 17:47
PROVIDERS: PCP Nurse Practitioner Family; Visit Provider Nurse Practitioner Family
DX: R00.2 Palpitations (principal); R42 Dizziness and giddiness
CPT/HCPCS: 36415; 80053; 85025; 93005

== ENCOUNTER 2022-04-15 08:12 | Outpatient (CLI) | payer BC, SELFPAY ==
--- NOTE | ~2022-04-15 | US_ITS ---
EXAMINATION: US soft tissue buttock RT DATE: 04/15/2022 09:00 INDICATION: Pilonidal cyst without abscess TECHNIQUE: Multiple grayscale and Doppler ultrasound images of the region of concern at the cephalad aspect of the right buttocks were obtained. COMPARISON: None FINDINGS: There is a hypoechoic region in the subcutaneous tissues at the region of concern which appears to tr ack to the skin surface. The region measures 3.0 x 3.9 by at least 1.6 cm in depth. The deep margin o f the lesion is however obscured centrally by some refraction artifact. IMPRESSION: 1. Nonspecific 3.9 x 3.0 x 1.6 cm hypoechoic lesion at the region of concern which could represent a pilonidal cyst or abscess with appears be a draining sinus tract extending to the skin surface. Reviewed, dictated and finalized at location A. IMPRESSION: 1. Nonspecific 3.9 x 3.0 x 1.6 cm hypoechoic lesion at the region of concern wh ich could represent a pilonidal cyst or abscess with appears be a draining sinu s tract extending to the skin surface.
== END 2022-04-15 08:13 | disposition home or self-care (01) ==
LOC: CHSIMG 08:13
PROVIDERS: PCP Nurse Practitioner Family; Visit Provider Nurse Practitioner Family
DX: L05.01 Pilonidal cyst with abscess (principal)
CPT/HCPCS: 76705

== ENCOUNTER 2022-07-25 16:05 | Outpatient (CLI) | payer BC, SELFPAY ==
--- NOTE | ~2022-07-25 | XR_ITS ---
EXAMINATION: XR chest 2V 07/25/2022 16:30 INDICATION: Shortness of breath and chest tightness PROCEDURE: 2 view chest COMPARISON: 08/25/2021 FINDINGS: The lungs are clear. The cardiomediastinal silhouette is within normal limits. There are no pleural effusions. There is no pneumothorax suspected. IMPRESSION: 1: NO ACUTE CARDIOPULMONARY DISEASE. Reviewed, dictated and finalized at location B.
== END 2022-07-25 16:06 | disposition home or self-care (01) ==
PROVIDERS: PCP Nurse Practitioner Family; Visit Provider Nurse Practitioner Family
DX: R09.89 Other specified symptoms and signs involving the circulatory and respiratory systems (principal)
CPT/HCPCS: 71046

== ENCOUNTER 2022-11-11 10:08 | Emergency (ER) | payer BC, SELFPAY ==
--- NOTE | ~2022-11-11 | CT_ITS ---
EXAMINATION: CT abdomen pelvis wo con DATE: 11/11/2022 13:07 INDICATION: Right upper quadrant pain TECHNIQUE: Computed tomography (CT) of the abdomen and pelvis was performed without intravenous contr ast. The dose-length product (DLP) was 1710.55 mGy-cm. Automated exposure control and iterative recon struction technique were employed. COMPARISON: None FINDINGS: Minimal dependent atelectasis is present in the lung bases. The heart size is normal. Again noted is focal emphysema in the right lower lobe. The liver, spleen, pancreas, gallbladder, and adre nal glands are normal. The kidneys are unremarkable. No pathologically enlarged abdominal or pelvic l ymph nodes are identified. There is no free intraperitoneal gas or evidence of bowel obstruction. The appendix is normal. There is mild lumbar spondylosis. IMPRESSION: 1. No CT correlate for the patient's symptoms. Reviewed, dictated and finalized at location B. VATIVES TRADER
[2022-11-11 10:27] VITALS: BP 158/98; PULSE 79; RESP 20; TEMP 37; O2SAT 97
--- NOTE | 2022-11-11 10:57 | ED.ABDPAIN ---
HPI - Abdominal Pain General Chief Complaint: Abdominal Pain Stated Complaint: Possible gallbladder attack Time Seen by Provider: 11/11/22 10:53 Source: patient Mode of arrival: ambulatory Limitations: no limitations History of Present Illness HPI narrative: 40 morbid obesity, hypertension, diabetes mellitus, NABILA, COPD fatty liver, dyslipidemia, hypothyroidism has been having -- right upper quadrant abdominal pain for the past few days. Pain worsens with eating. He went to [facility] where he had blood work done but was unable to get an ultrasound of the gallbladder. He presents to the ER for ongoing pain. No fever/chills. No nausea/ vomiting. MD elicited complaint: abdominal pain Onset (ago): day(s) Pain Consistency: intermittent Location: RUQ Severity: moderate Pain scale (0-10): 4 Quality: cramping Radiation: epigastric and other ( Radiates to right flank and right shoulder.) Exacerbating factors: eating Relieving factors: nothing Associated symptoms: nausea Related Data Home Medications Medication Instructions Recorded Confirmed albuterol sulfate 90 mcg/actuation 4 inhalation inhalation Q8H PRN 03/24/20 11/11/22 aerosol inhaler (ProAir HFA) Shortness Of Breath montelukast 10 mg tablet 10 mg PO DAILY 03/24/20 11/11/22 Allergies Allergy/AdvReac Type Severity Reaction Status Date / Time Contrast Media Allergy Intermediate Itching Uncoded 10/20/22 09:28 Iodinated Glycerol Allergy Intermediate Unknown Uncoded 10/20/22 09:28 Review of Systems Review of Systems: All systems reviewed & are unremarkable except as noted in HPI and below Constitutional: Constitutional: Reports as per HPI and Reports no additional constitutional complaints Eyes: Eyes: Reports as per HPI and Reports no additional eye complaints ENT: Reports system reviewed and no additional complaints, except as documented and Reports as per HPI Cardiovascular: Cardiovascular: Reports as per HPI and Reports no additional cardiovascular complaints Respiratory: Respiratory: Reports as per HPI and Reports no additional respiratory complaints Gastrointestinal: Gastrointestinal: Reports as per HPI, Reports no additional gastrointestinal complaints, Reports abdominal pain and Reports nausea Genitourinary: Genitourinary: Reports no additional male genitourinary complaints and Reports as per HPI Musculoskeletal: Musculoskeletal: Reports no additional musculoskeletal complaints and Reports as per HPI Integumentary/Breasts: Skin/Breast: Reports system reviewed and no additional complaints, except as docu and Reports as per HPI Neurologic: Reports system reviewed and no additional complaints, except as documented and Reports as per HPI Psychiatric: Psychiatric: Reports no additional psychiatric complaints and Reports as per HPI Endocrine: Endocrine: Reports no additional endocrine complaints and Reports as per HPI Hematologic/Lymphatic: Hematologic/Lymphatic: Reports no additional hematologic/lymphatic complaints and Reports as per HPI Allergic/Immunologic: Allergic/Immunologic: Reports no additional allergic/immunologic complaints and Reports as per HPI [facility] Past Medical History Medical History Benign essential hypertension Bilateral lower extremity edema Cellulitis Chest pain Conjunctivitis COPD (chronic obstructive pulmonary disease) Cough Gout attack Hyperlipidemia associated with type 2 diabetes mellitus Hypothyroidism Left knee pain Loss of taste Migraine with aura and without status migrainosus Nonalcoholic fatty liver disease Obesity, morbid, BMI 50 or higher ANBILA (obstructive sleep apnea) Pilonidal cyst Primary osteoarthritis of left knee Sore throat Type 2 diabetes mellitus with hypertriglyceridemia Surgical History Surgical History History of fasciotomy (~2010) History of left heart catheterization (LHC) Histo
--- NOTE | 2022-11-11 10:58 | ECG_ITS ---
Measurements Intervals [place] Rate: 67 P: 38 [place]: 189 QRS: 13 QRSD: 105 T: 35 QT: 348 QTc: 368 Interpretive Statements SINUS RHYTHM LOW QRS VOLTAGE IN PRECORDIAL LEADS VOLTAGE CRITERIA FOR LVH BASELINE ARTIFACT- V2-V3 BORDERLINE ECG COMPARED TO ECG 12/29/2021 18:17:35 NO SIGNIFICANT CHANGES Electronically Signed On 11-11-2022 13:09:56 SECURITY INCIDENT RESPONSE SPECIALIST by Rogelio Patricio D.O.
[2022-11-11 11:45] VITALS: BP 148/94; PULSE 71; RESP 20; O2SAT 97
[2022-11-11 11:51] LABS: Basophils Absolute Auto 0.03 K/mm3 (0.00-0.10); Basophils Percent Auto 0.4 % (0.0-1.0); Eosinophils Absolute Auto 0.11 K/mm3 (0.02-0.50); Eosinophils Percent Auto 1.5 % (1.0-6.0); Hematocrit 40.8 % (40.0-54.0); Hemoglobin 13.6 g/dL (14.0-18.0); Immature Granulocyte Absolute 0.01 K/mm3 (0.00-0.00); Immature Granulocyte Percent A 0.1 % (0.0-0.0); Lymphocytes Absolute Auto 1.83 K/mm3 (1.10-4.50); Lymphocytes Percent Auto 25.3 % (18.0-42.0); Mean Corpuscular HGB Conc 33.3 g/dL (32.0-36.0); Mean Corpuscular Hemoglobin 30.6 pg (27.0-31.0); Mean Corpuscular Volume 91.7 fL (78.0-102.0); Mean Platelet Volume 8.8 fl (8.7-11.0); Monocytes Absolute Auto 0.34 K/mm3 (0.10-0.90); Monocytes Percent Auto 4.7 % (2.0-11.0); Neutrophils Absolute Auto 4.9 K/mm3 (1.7-7.2); Platelet Count Result 238 K/mm3 (150-420); Red Blood Count 4.45 M/mm3 (4.70-6.10); Red Cell Distribution Width 12.7 % (11.6-14.4); White Blood Count 7.2 K/mm3 (4.8-10.8)
[2022-11-11 12:02] LABS: Add Urine Microscopic? NO; Appearance Urine Clear (Clear); Bilirubin Urine Negative (Negative); Blood Urine Negative (Negative); Color Urine Light Yellow (Yellow); Glucose Urine UA Negative (Negative); Ketones Urine Negative (Negative); Leukocyte Esterase Ur Negative LEU/UL (Negative); Nitrate Urine Negative (Negative); Protein Urine Negative (Negative); Urobilinogen Urine 0.2 mg/dL (0.2-1.0)
[2022-11-11 12:06] LABS: Partial Thromboplastin Time 29.9 SEC (23.90-30.70); Prothrombin Time 11.4 Seconds (9.50-12.10)
[2022-11-11 12:16] LABS: Lactic Acid Reflex 0.8 mmol/L (0.4-2.0)
[2022-11-11 12:23] LABS: Alanine Aminotransferase 33 U/L (16-63); Albumin Level 3.6 g/dL (3.4-5.0); Alkaline Phosphatase 78 U/L (46-116); Anion Gap 3 mmol/L (8-16); Aspartate Amino Transferase 29 U/L (15-37); Bilirubin,Total 0.5 mg/dL (0.00-1.00); Blood Urea Nitrogen 11 mg/dL (7-18); Carbon Dioxide 33 mmol/L (21-32); Chloride 99 mmol/L (98-108); Estimated CRCL calculation 171 ml/min; Estimated Glomerular Filt Rate > 60; Glucose 103 mg/dL (70-99); Lipase 24 U/L (16-77); Osmolality Calculated 279 mOsm/kg (285-295); Potassium 4.3 mmol/L (3.5-5.1); Sodium 135 mmol/L (136-145); Total Protein 7.7 g/dL (6.4-8.2); Troponin I 8.8 ng/L (0.00-60.4)
[2022-11-11 12:45] VITALS: BP 149/101; PULSE 75; RESP 18; O2SAT 97
[2022-11-11] MEDS: MORPHINE SULFATE (*CRX) 2 MG/ML INJ IV PUSH (13:30)
[2022-11-11] MEDS: ONDANSETRON INJ 4 MG/2 ML VIAL IV PUSH (13:30)
[2022-11-11 13:41] VITALS: BP 141/76; PULSE 75; RESP 20; TEMP 36.9; O2SAT 97
[2022-11-11 14:01] VITALS: BP 147/75; PULSE 73; RESP 20; TEMP 36.9; O2SAT 98
== END 2022-11-11 14:05 | disposition home or self-care (01) ==
PROVIDERS: Emergency Provider Internal Medicine Critical Care Medicine; PCP Nurse Practitioner Family
DX: R10.11 Right upper quadrant pain (principal); I10 Essential (primary) hypertension; E11.9 Type 2 diabetes mellitus without complications; G47.33 Obstructive sleep apnea (adult) (pediatric); J44.9 Chronic obstructive pulmonary disease, unspecified; E78.5 Hyperlipidemia, unspecified; E03.9 Hypothyroidism, unspecified; K75.81 Nonalcoholic steatohepatitis (NASH); E66.01 Morbid (severe) obesity due to excess calories; Z68.43 Body mass index [BMI] 50.0-59.9, adult; Z79.51 Long term (current) use of inhaled steroids; Z79.899 Other long term (current) drug therapy
CPT/HCPCS: 36415; 74176; 80053; 81003; 83605; 83690; 84484; 85025; 85610; 85730; 93005; 96374; 96375; 99284; J2270; J2405

== ENCOUNTER 2022-11-22 06:54 | Outpatient (CLI) | payer BC, SELFPAY ==
--- NOTE | ~2022-11-22 | US_ITS ---
Limited Abdominal Sonogram: Real-time sonographic imaging of the right upper quadrant was performed. Clinical History: Cholelithiasis Findings: The liver appears echogenic, with no evidence of mass lesion or bile duct dilatation. It m easures 21.1 cm in length. Main portal vein demonstrates normal direction of flow. The gallbladder is well distended, and appears normal with no evidence of gallstone or wall thickening. The common bile duct measures 4 mm. The visualized pancreas, aorta, and IVC are unremarkable. Right kidney measures 12.3 cm in length, without evidence of hydronephrosis. Impression: Diffuse fatty infiltration of the liver, with associated hepatomegaly. Unremarkable gallbladder. Reviewed, dictated and finalized at location M. CTION COORDINATION POWER ENGINEER Impression: Diffuse fatty infiltration of the liver, with associated hepatomegaly. Unremarkable gallbladder.
== END 2022-11-22 06:55 | disposition home or self-care (01) ==
LOC: CHSIMG 06:56
PROVIDERS: PCP Nurse Practitioner Family; Visit Provider Nurse Practitioner Family
DX: K76.0 Fatty (change of) liver, not elsewhere classified (principal); R16.0 Hepatomegaly, not elsewhere classified
CPT/HCPCS: 76705

== ENCOUNTER 2022-11-28 07:42 | Outpatient (CLI) | payer BC, SELFPAY ==
--- NOTE | ~2022-11-28 | NM_ITS ---
EXAMINATION: NM hepatobiliary w pharm DATE: 11/28/2022 14:58 INDICATION: Right upper quadrant abdominal pain COMPARISON: None. TECHNIQUE: 6.0 mCi Tc-99m mebrofenin (Choletec) was administered intravenously. Scintigraphic images of the abdomen were obtained for one hour. 4.0 mcg sincalide (Kinevac) was administered by slow intr avenous infusion, and imaging was continued for 30 minutes. There are no dilatation from the technolo gist the CCK infusion reproduced the patient's symptoms. Gallbladder ejection fraction was calculated by the technologist. FINDINGS: There is normal clearance of radiotracer from the blood pool. There is homogeneous tracer uptake by t he liver. Activity progresses to the gallbladder and bowel. The gallbladder ejection fraction (GBEF) is 59% (normal 10-90%, but most patient with gallbladder dysfunction have GBEF < 35% which does over lap with the normal range). IMPRESSION: 1. Normal hepatobiliary scan but with reported reproduction of patient's symptoms of right upper korin drant abdominal pain with CCK infusion. Reviewed, dictated and finalized at location A. H ROLLER OPERATOR IMPRESSION: 1. Normal hepatobiliary scan but with reported reproduction of patient's sympt oms of right upper quadrant abdominal pain with CCK infusion.
== END 2022-11-28 07:43 | disposition home or self-care (01) ==
LOC: CHSIMG 07:43
PROVIDERS: PCP Nurse Practitioner Family; Visit Provider Nurse Practitioner Family
DX: R10.11 Right upper quadrant pain (principal)
CPT/HCPCS: 78227; A9537; J2805

== ENCOUNTER 2023-01-19 00:32 | Day surgery (SDC) | payer BC, SELFPAY ==
[2023-01-06 12:59] VITALS: BMI 57.6
[2023-01-19 08:15] LABS: Glucose Point of Care 107 mg/dl (65-105)
[2023-01-19 08:17] VITALS: BP 128/77; PULSE 98; RESP 18; TEMP 36.6; O2SAT 98
[2023-01-19] MEDS: LACTATED RINGERS 1,000 ML 150 ML IV CONT (08:24)
--- NOTE | 2023-01-19 08:36 | WPDANESEPPF ---
Anes - Initial Pre Proc Eval Procedure: Operation Date: 01/19/23 09:00 Proposed Procedures p Esophagogastroduodenoscopy - Sam Rosales DO Date/Time: 01/19/23 08:36 Surgeon: Sam Rosales DO Pre Op Diagnosis: RUQP Patient Data Age: 47 Gender: M Height: 1.85 m Weight: 197.2 kg Last Vital Signs Temp 36.6 C 01/19/23 08:17 Pulse 98 01/19/23 08:17 Resp 18 01/19/23 08:17 BP 128/77 01/19/23 08:17 Pulse Ox 98 01/19/23 08:17 O2 Del Method Room Air 01/19/23 08:17 Allergies Allergy/AdvReac Type Severity Reaction Status Date / Time Contrast Media Allergy Intermediate Itching Uncoded 01/19/23 08:14 Home Medications Medication Instructions Recorded Confirmed Type albuterol sulfate 90 mcg/actuation 4 inhalation inhalation Q8H PRN 03/24/20 01/19/23 History aerosol inhaler (ProAir HFA) Shortness Of Breath montelukast 10 mg tablet 10 mg PO DAILY 03/24/20 01/19/23 History albuterol sulfate 1.25 mg/3 mL See Rx Instructions .Route 04/08/20 01/19/23 Rx solution for nebulization .COMPLEX #75 mL cholecalciferol (vitamin D3) 50 50 mcg PO DAILY #90 caps 12/29/21 01/19/23 Rx mcg (2,000 unit) capsule lisinopril 20 mg tablet See Rx Instructions .Route 06/09/22 01/19/23 Rx .COMPLEX #30 tabs levothyroxine 175 mcg tablet See Rx Instructions .Route 08/29/22 01/19/23 Rx .COMPLEX #90 tabs dulaglutide 1.5 mg/0.5 mL See Rx Instructions .Route 10/03/22 01/19/23 Rx subcutaneous pen injector .COMPLEX #12 syringes ([facility]) fluticasone propionate 50 See Rx Instructions .Route 10/20/22 01/19/23 Rx mcg/actuation nasal .COMPLEX #16 mL spray,suspension atorvastatin 20 mg tablet See Rx Instructions .Route 10/28/22 01/19/23 Rx .COMPLEX #90 tabs Laboratory Tests 01/19/23 08:12 POC Capillary Glucose 107 mg/dl H mg/dl (65-105) Patient hx anesthesia problems: none Family hx anesthesia problems: none Results Review: All pre-operative results and documents have been reviewed as part of the pre-operative evaluation. [facility] Past Medical History Medical History Benign essential hypertension Bilateral lower extremity edema Cellulitis Chest pain Conjunctivitis COPD (chronic obstructive pulmonary disease) Cough Gout attack Hyperlipidemia associated with type 2 diabetes mellitus Hypothyroidism Left knee pain Loss of taste Migraine with aura and without status migrainosus Nonalcoholic fatty liver disease Obesity, morbid, BMI 50 or higher NABILA (obstructive sleep apnea) Pilonidal cyst Primary osteoarthritis of left knee Sore throat Type 2 diabetes mellitus with hypertriglyceridemia Surgical History Surgical History History of fasciotomy (~2010) History of left heart catheterization (LHC) History of oral surgery (~2001) Oral Extractions Social History Social History Smoking status: Never smoker Alcohol intake: never Alcohol use details: Rarely Substance use: never Substance use type: does not use Lack of Transportation: No Lack of Food: Never True Current Housing: I Have Housing Concerned About Future Housing: No Difficulty Paying Gas/Electric Bills: No Difficulty Paying for Meds: No Currently Unemployed: No Education: Master's Degree or Higher Difficulty w/ Childcare or Family Care: No Living arrangements: with family Occupation/Education: occupation Additional occupation/education comments: Paraprofessional Gender identity (if verbalized by the patient): Male Spiritual care concerns: No Agree to blood products: Yes Anes - Eval Final PreProcedure Day of Procedure 01/19/23 08:36 Patient weight: super morbidly obese Heart: regular rate and rhythm Lungs: clear to auscultation Airway: Mallampati scale class III Neurological: alert and oriented [place]
--- NOTE | 2023-01-19 09:20 | PM.IMHP ---
H&P: HPI History of Present Illness Date/Time: 01/19/23 09:20 Chief Complaint: right upper quadrant pain Narrative: this is a 47-year-old man who presents for EGD. He has been having some right upper quadrant pain. CT, ultrasound, and HIDA scan were all normal. He is also being worked up for bariatric surgery and is planning to undergo sleeve gastrectomy. He is in need of EGD to rule out other pathologies prior to surgery. Review of Systems Review of Systems: All systems reviewed & are unremarkable except as noted in HPI and below Constitutional: Constitutional: Denies chills, Denies fever(s), Denies headache(s) and Denies weight loss Eyes: Eyes: Denies change in vision ENT: Denies dizziness, Denies headache(s), Denies neck mass and Denies throat swelling Cardiovascular: Cardiovascular: Denies chest pain, Denies lightheadedness and Denies dyspnea Respiratory: Respiratory: Denies cough, Denies dyspnea and Denies wheezing Gastrointestinal: Gastrointestinal: Denies abdominal pain, Denies change in bowel habits, Denies nausea and Denies vomiting Genitourinary: Genitourinary: Denies hematuria and Denies dysuria Musculoskeletal: Musculoskeletal: Reports as per HPI Integumentary/Breasts: Skin/Breast: Reports as per HPI Neurologic: Denies dizziness and Denies headache(s) Allergic/Immunologic: Allergic/Immunologic: Denies throat swelling and Denies wheezing PMFSH Past Medical History Medical History Benign essential hypertension Bilateral lower extremity edema Cellulitis Chest pain Conjunctivitis COPD (chronic obstructive pulmonary disease) Cough Gout attack Hyperlipidemia associated with type 2 diabetes mellitus Hypothyroidism Left knee pain Loss of taste Migraine with aura and without status migrainosus Nonalcoholic fatty liver disease Obesity, morbid, BMI 50 or higher NABILA (obstructive sleep apnea) Pilonidal cyst Primary osteoarthritis of left knee Sore throat Type 2 diabetes mellitus with hypertriglyceridemia Surgical History Surgical History History of fasciotomy (~2010) History of left heart catheterization (LHC) History of oral surgery (~2001) Oral Extractions Social History Social History Smoking status: Never smoker Alcohol intake: never Alcohol use details: Rarely Substance use: never Substance use type: does not use Lack of Transportation: No Lack of Food: Never True Current Housing: I Have Housing Concerned About Future Housing: No Difficulty Paying Gas/Electric Bills: No Difficulty Paying for Meds: No Currently Unemployed: No Education: Master's Degree or Higher Difficulty w/ Childcare or Family Care: No Living arrangements: with family Occupation/Education: occupation Additional occupation/education comments: Paraprofessional Gender identity (if verbalized by the patient): Male Spiritual care concerns: No Agree to blood products: Yes Meds Home Medications and Allergies Home Medications Medication Instructions Recorded Confirmed Type albuterol sulfate 90 mcg/actuation 4 inhalation inhalation Q8H PRN 03/24/20 01/19/23 History aerosol inhaler (ProAir HFA) Shortness Of Breath montelukast 10 mg tablet 10 mg PO DAILY 03/24/20 01/19/23 History albuterol sulfate 1.25 mg/3 mL See Rx Instructions .Route 04/08/20 01/19/23 Rx solution for nebulization .COMPLEX #75 mL cholecalciferol (vitamin D3) 50 50 mcg PO DAILY #90 caps 12/29/21 01/19/23 Rx mcg (2,000 unit) capsule lisinopril 20 mg tablet See Rx Instructions .Route 06/09/22 01/19/23 Rx .COMPLEX #30 tabs levothyroxine 175 mcg tablet See Rx Instructions .Route 08/29/22 01/19/23 Rx .COMPLEX #90 tabs dulaglutide 1.5 mg/0.5 mL See Rx Instructions .Route 10/03/22 01/19/23 Rx subcutaneous pen injector .COMPLEX #12 syringes (Tr
[2023-01-19 09:46] VITALS: BP 101/69; PULSE 69; RESP 18; O2SAT 98
[2023-01-19 09:56] VITALS: BP 111/75; PULSE 72; RESP 18; O2SAT 100
[2023-01-19 10:06] VITALS: BP 110/77; PULSE 76; RESP 18; O2SAT 100
== END 2023-01-19 10:08 | disposition home or self-care (01) ==
PROVIDERS: PCP Family Medicine; Visit Provider Surgery
PROC: 0DJ08ZZ Inspection of Upper Intestinal Tract, Via Natural or Artificial Opening Endoscopic (ICD-10-PCS; CPT 43235; principal; 2023-01-19 09:00)
DX: Z01.818 Encounter for other preprocedural examination (principal); R10.11 Right upper quadrant pain; J44.9 Chronic obstructive pulmonary disease, unspecified; E78.5 Hyperlipidemia, unspecified; E03.9 Hypothyroidism, unspecified; E11.9 Type 2 diabetes mellitus without complications; K75.81 Nonalcoholic steatohepatitis (NASH); M10.9 Gout, unspecified; I10 Essential (primary) hypertension; E66.01 Morbid (severe) obesity due to excess calories; Z68.43 Body mass index [BMI] 50.0-59.9, adult; Z79.51 Long term (current) use of inhaled steroids; Z79.899 Other long term (current) drug therapy
CPT/HCPCS: 43235; 82948; J2001; J2704; J7120

== ENCOUNTER 2023-02-03 10:23 | Outpatient (CLI) | payer BC, SELFPAY ==
[2023-02-03 11:00] LABS: Hemoglobin A1C 5.9 % (<5.7)
[2023-02-07 19:25] LABS: Vitamin D 25 Hydroxy 40 ng/mL (30-100)
== END 2023-02-03 10:24 | disposition home or self-care (01) ==
LOC: CHSLAB 10:24
PROVIDERS: PCP Family Medicine; Visit Provider Family Medicine
DX: E55.9 Vitamin D deficiency, unspecified (principal); E11.9 Type 2 diabetes mellitus without complications
CPT/HCPCS: 36415; 82306; 83036

== ENCOUNTER 2023-03-20 16:20 | Outpatient (CLI) | payer BC, SELFPAY ==
[2023-03-20 17:05] LABS: Basophils Absolute Auto 0.02 K/mm3 (0.00-0.10); Basophils Percent Auto 0.3 % (0.0-1.0); Eosinophils Absolute Auto 0.12 K/mm3 (0.02-0.50); Eosinophils Percent Auto 1.6 % (1.0-6.0); Hematocrit 38.7 % (40.0-54.0); Hemoglobin 12.8 g/dL (14.0-18.0); Immature Granulocyte Absolute 0.02 K/mm3 (0.00-0.00); Immature Granulocyte Percent A 0.3 % (0.0-0.0); Lymphocytes Absolute Auto 2.11 K/mm3 (1.10-4.50); Lymphocytes Percent Auto 28.2 % (18.0-42.0); Mean Corpuscular HGB Conc 33.1 g/dL (32.0-36.0); Mean Corpuscular Hemoglobin 30.1 pg (27.0-31.0); Mean Corpuscular Volume 91.1 fL (78.0-102.0); Mean Platelet Volume 9.3 fl (8.7-11.0); Monocytes Absolute Auto 0.43 K/mm3 (0.10-0.90); Monocytes Percent Auto 5.7 % (2.0-11.0); Neutrophils Absolute Auto 4.8 K/mm3 (1.7-7.2); Neutrophils Percent Auto 63.9 % (50.0-70.0); Platelet Count Result 238 K/mm3 (150-420); Red Blood Count 4.25 M/mm3 (4.70-6.10); Red Cell Distribution Width 12.9 % (11.6-14.4); White Blood Count 7.5 K/mm3 (4.8-10.8)
[2023-03-20 17:27] LABS: Alanine Aminotransferase 29 U/L (16-63); Albumin Level 3.6 g/dL (3.4-5.0); Alkaline Phosphatase 79 U/L (46-116); Anion Gap 7 mmol/L (8-16); Aspartate Amino Transferase 24 U/L (15-37); Bilirubin,Total 0.5 mg/dL (0.00-1.00); Blood Urea Nitrogen 10 mg/dL (7-18); Calcium 9.1 mg/dL (8.5-10.1); Carbon Dioxide 30 mmol/L (21-32); Chloride 102 mmol/L (98-108); Estimated Glomerular Filt Rate > 60; Glucose 94 mg/dL (70-99); Osmolality Calculated 287 mOsm/kg (285-295); Potassium 4.3 mmol/L (3.5-5.1); Sodium 139 mmol/L (136-145); Thyroid Stimulating Hormone 1.56 uIU/mL (0.36-3.74); Total Protein 7.2 g/dL (6.4-8.2)
== END 2023-03-20 16:21 | disposition home or self-care (01) ==
PROVIDERS: PCP Family Medicine
DX: Z01.818 Encounter for other preprocedural examination (principal); E66.01 Morbid (severe) obesity due to excess calories
CPT/HCPCS: 36415; 80053; 84443; 85025

== ENCOUNTER 2023-03-21 06:52 | Outpatient (CLI) | payer BC, SELFPAY ==
--- NOTE | 2023-03-21 07:07 | ECG_ITS ---
Measurements Intervals [place] Rate: 79 P: 49 [place]: 172 QRS: 25 QRSD: 114 T: 67 QT: 331 QTc: 381 Interpretive Statements SINUS RHYTHM INTRAVENTRICULAR CONDUCTION DELAY ST ELEVATION IN ANTEROLAT/INF LEADS- PROBABLY EARLY REPOLARIZATION ABNORMALITY BORDERLINE ECG COMPARED TO ECG 11/11/2022 12:10:35 INTRAVENTRICULAR CONDUCTION DELAY NOW PRESENT Electronically Signed On 03-21-2023 8:42:47 CDT by Rogelio Patricio D.O.
== END 2023-03-21 06:53 | disposition home or self-care (01) ==
LOC: CHSCARD 06:56
PROVIDERS: PCP Family Medicine
DX: Z01.818 Encounter for other preprocedural examination (principal); E66.01 Morbid (severe) obesity due to excess calories
CPT/HCPCS: 93005

== ENCOUNTER 2023-04-19 14:27 | Outpatient (CLI) | payer BC, SELFPAY ==
[2023-04-19 14:56] LABS: Appearance Urine Clear (Clear); Blood Urine Negative (Negative); Color Urine Yellow (Yellow); Glucose Urine UA Negative (Negative); Ketones Urine Negative (Negative); Protein Urine Negative (Negative); Specific Grav Ur >= 1.030 (1.010-1.020)
[2023-04-19 14:57] LABS: Bilirubin Urine Negative (Negative); Leukocyte Esterase Ur Negative (Negative); Nitrate Urine Negative (Negative); Urobilinogen Urine 0.2 mg/dL (0.2-1.0)
[2023-04-19 15:06] LABS: Creatinine Urine 114.96 mg/dL (40-278); MALB Creatinine Ratio 11.3 mg/g (0-30); Microalbumin Urine Random < 13.0 mg/L
[2023-04-19 15:08] LABS: Add Urine Microscopic? NO
[2023-04-19 15:12] LABS: Amphetamine Screen Urine Negative (Negative); Barbiturate Screen Urine Negative (Negative); Benzodiazepines Screen Urine Negative (Negative); Cannabinoid Screen Urine Negative (Negative); Cocaine Screen Urine Negative (Negative); Methadone Screen Urine Negative (Negative); Opiate Screen Urine Negative (Negative); Phencyclidine Screen Urine Negative (Negative)
== END 2023-04-19 14:28 | disposition home or self-care (01) ==
LOC: CHSLAB 14:29
PROVIDERS: PCP Family Medicine; Visit Provider Nurse Practitioner Family
DX: Z02.1 Encounter for pre-employment examination (principal)
CPT/HCPCS: 80307; 81003; 82043

== ENCOUNTER 2023-05-19 10:09 | Outpatient (CLI) | payer BC, SELFPAY ==
[2023-05-19 11:15] LABS: Hemoglobin A1C 5.9 % (<5.7)
== END 2023-05-19 10:10 | disposition home or self-care (01) ==
LOC: CHSLAB 10:11
PROVIDERS: PCP Nurse Practitioner Family; Visit Provider Nurse Practitioner Family
DX: E78.1 Pure hyperglyceridemia (principal); E66.01 Morbid (severe) obesity due to excess calories; Z68.44 Body mass index [BMI] 60.0-69.9, adult; E11.69 Type 2 diabetes mellitus with other specified complication
CPT/HCPCS: 36415; 83036

== ENCOUNTER 2023-06-14 16:42 | Outpatient (CLI) | payer BC, SELFPAY ==
[2023-06-14 17:25] LABS: Free T4 Free Thyroxine 0.93 ng/dL (0.76-1.46); Thyroid Stimulating Hormone 5.02 uIU/mL (0.36-3.74)
[2023-06-18 11:36] LABS: Total Triiodothyronine (T3) 130.4 ng/dL (76-181)
== END 2023-06-14 16:43 | disposition home or self-care (01) ==
PROVIDERS: PCP Nurse Practitioner Family; Visit Provider Nurse Practitioner Family
DX: E03.9 Hypothyroidism, unspecified (principal)
CPT/HCPCS: 36415; 84439; 84443; 84480

== ENCOUNTER 2023-08-18 07:03 | Outpatient (CLI) | payer BC, SELFPAY ==
[2023-08-18 08:14] LABS: Free T4 Free Thyroxine 1.06 ng/dL (0.76-1.46); Thyroid Stimulating Hormone 0.36 uIU/mL (0.36-3.74)
== END 2023-08-18 07:04 | disposition home or self-care (01) ==
LOC: CHSLAB 07:06
PROVIDERS: PCP Nurse Practitioner Family; Visit Provider Nurse Practitioner Family
DX: E03.9 Hypothyroidism, unspecified (principal); Z01.83 Encounter for blood typing
CPT/HCPCS: 36415; 84439; 84443; 86850; 86900; 86901

== ENCOUNTER 2023-09-05 15:10 | Outpatient (CLI) | payer BC, SELFPAY ==
[2023-09-05 15:49] LABS: Strep Group A RT-PCR NOT DETECTED (Negative)
[2023-09-05 15:59] LABS: Influenza A QL RT-PCR Negative (Negative); Influenza B QL RT-PCR Negative (Negative); SARS-CoV-2 RNA PCR Positive (Negative)
== END 2023-09-05 15:11 | disposition home or self-care (01) ==
LOC: CHSLAB 15:12
PROVIDERS: PCP Nurse Practitioner Family; Visit Provider Nurse Practitioner Family
DX: U07.1 COVID-19 (principal)
CPT/HCPCS: 87636; 87651

== ENCOUNTER 2023-12-05 14:45 | Outpatient (CLI) | payer BC, SELFPAY ==
[2023-12-05 15:32] LABS: SARS-CoV-2 RNA PCR Negative (Negative)
[2023-12-05 15:39] LABS: Influenza A QL RT-PCR Negative (Negative); Influenza B QL RT-PCR Positive (Negative); RSV RNA, RT-PCR Negative (Negative); Strep Group A RT-PCR NOT DETECTED (Negative)
== END 2023-12-05 14:46 | disposition home or self-care (01) ==
LOC: CHSLAB 14:46
PROVIDERS: PCP Nurse Practitioner Family; Visit Provider Nurse Practitioner Family
DX: R05.9 Cough, unspecified (principal); Z20.822 Contact with and (suspected) exposure to COVID-19
CPT/HCPCS: 87637; 87651

== ENCOUNTER 2024-01-05 22:02 | Emergency (ER) | payer BC, SELFPAY ==
--- NOTE | ~2024-01-05 | XR_ITS ---
EXAMINATION: XR chest 2V DATE: 01/05/2024 22:33 INDICATION: Chest pain. Shortness of breath. TECHNIQUE: Frontal and lateral views of the chest were obtained on 3 radiographs. COMPARISON: Chest 2 views 07/25/2022 FINDINGS: There is no pneumonia, pleural effusion, or pneumothorax. The heart size is normal. IMPRESSION: 1. No acute cardiopulmonary disease. Reviewed, dictated and finalized at location E. DIRECTOR
--- NOTE | 2024-01-05 22:09 | ECG_ITS ---
Measurements Intervals [place] Rate: 57 P: 52 [place]: 195 QRS: 14 QRSD: 108 T: 56 QT: 358 QTc: 351 Interpretive Statements SINUS BRADYCARDIA LOW QRS VOLTAGE IN PRECORDIAL LEADS BORDERLINE T WAVE ABNORMALITY- ANTERIOR LEADS BORDERLINE ECG COMPARED TO ECG 03/21/2023 07:12:59 SINUS BRADYCARDIA NOW PRESENT Electronically Signed On 01-06-2024 7:39:35 DIRECTOR OF ONLINE MERCHANDISING by Rogelio Patricio D.O.
[2024-01-05 22:16] VITALS: BP 127/87; PULSE 74; RESP 18; TEMP 36.8; O2SAT 98
[2024-01-05 22:22] VITALS: O2SAT 98
[2024-01-05] MEDS: IPRATROPIUM 0.5 MG/ALBUTEROL SULFATE 2.5 MG AMPUL.NEB 3 ML INHALATION (22:41)
[2024-01-05 22:42] VITALS: PULSE 60; RESP 20; O2SAT 97
[2024-01-05 22:45] LABS: Basophils Absolute Auto 0.03 K/mm3 (0.00-0.10); Basophils Percent Auto 0.3 % (0.0-1.0); Eosinophils Absolute Auto 0.11 K/mm3 (0.02-0.50); Eosinophils Percent Auto 1.2 % (1.0-6.0); Hemoglobin 13.6 g/dL (14.0-18.0); Immature Granulocyte Absolute 0.03 K/mm3 (0.00-0.00); Immature Granulocyte Percent A 0.3 % (0.0-0.0); Lymphocytes Absolute Auto 3.01 K/mm3 (1.10-4.50); Lymphocytes Percent Auto 32.7 % (18.0-42.0); Mean Corpuscular Volume 88.3 fL (78.0-102.0); Monocytes Percent Auto 7.6 % (2.0-11.0); Neutrophils Absolute Auto 5.3 K/mm3 (1.7-7.2); Neutrophils Percent Auto 57.9 % (50.0-70.0); Platelet Count Result 230 K/mm3 (150-420); Red Blood Count 4.53 M/mm3 (4.70-6.10); Red Cell Distribution Width 13.2 % (11.6-14.4); White Blood Count 9.2 K/mm3 (4.8-10.8)
--- NOTE | 2024-01-05 22:48 | ED.CHESTPAIN ---
HPI - Chest Pain General Chief Complaint: Upper Respiratory Infection Stated Complaint: upper chest discomfort Time Seen by Provider: 01/05/24 22:09 History of Present Illness HPI narrative: Patient is a 48 year old male with history of COPD, obesity s/p gastric bypass surgery in 2022 here with chest tightness and shortness of breath. Patient states that when he was driving into work this morning he began feeling short of breath. He describes it as feeling like he had just left a smokey bar or restaurant. He notes that it feels as though he cant take a deep breath and feels tight both in his lungs and the back of his throat. He additionally describes that when he takes a deep breath he feels a sharp pain in the left lateral side of his chest. He denies any worsening cough than usual. He has not had a fever or chills, no increased sputum production. 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 He denies associated dizziness, light headedness, diaphoresis. No history of CAD. He did have a prior cardiac cath which was normal. No prior PE or DVT. No leg swelling. No calf pain. No recent travel or surgery. Normal p.o. intake, no nausea, vomiting, diarrhea. No postprandial pain. Related Data Allergies Allergy/AdvReac Type Severity Reaction Status Date / Time Contrast Media Allergy Intermediate Itching Uncoded 01/05/24 22:24 Review of Systems Review of Systems: All systems reviewed & are unremarkable except as noted in HPI and below PMFSH Past Medical History Medical History Benign essential hypertension Bilateral lower extremity edema Cellulitis Chest pain Conjunctivitis COPD (chronic obstructive pulmonary disease) Cough Gout attack Hyperlipidemia associated with type 2 diabetes mellitus Hypothyroidism Left knee pain Loss of taste Migraine with aura and without status migrainosus Nonalcoholic fatty liver disease Obesity, morbid, BMI 50 or higher NABILA (obstructive sleep apnea) Pilonidal cyst Primary osteoarthritis of left knee Sore throat Type 2 diabetes mellitus with hypertriglyceridemia Surgical History Surgical History History of fasciotomy (~2010) History of left heart catheterization (LHC) History of oral surgery (~2001) Oral Extractions Social History Social History (Reviewed 12/06/23 @ 11:19 by LENY Dorsey Smoking status: Never smoker Alcohol intake: never Alcohol use details: Rarely Substance use: never Substance use type: does not use Lack of Transportation: No Lack of Food: Never True Current Housing: I Have Housing Concerned About Future Housing: No Difficulty Paying Gas/Electric Bills: No Difficulty Paying for Meds: No Currently Unemployed: No Education: Master's Degree or Higher Difficulty w/ Childcare or Family Care: No Living arrangements: with family Occupation/Education: occupation Additional occupation/education comments: Paraprofessional Gender identity (if verbalized by the patient): Male Spiritual care concerns: No Agree to blood products: Yes Exam Narrative: GENERAL: Well-appearing, well-nourished, and in no acute distress. HEAD: Normocephalic, atraumatic. EYES: PERRLA and EOMI. ENT: Nares clear. Mucous membranes moist. NECK: Supple. CHEST: Faint wheeze bilaterally. No respiratory distress. HEART: Regular rate and rhythm. Normal peripheral pulses. ABDOMEN: Soft, nontender, nondistended. EXTREMITIES: Normal range of motion. No edema. SKIN: Warm, dry, no rash. NEURO: No focal deficits. Alert and oriented x3. PSYCH: Normal mood and affect. Course Course Emergency Course: Chart review performed. Patient here with shortness of breath and left sided chest pain. Triage vitals normal. PCP note reviewed. History of HTN, COPD, HLD, hypothyroidism, obesity, type 2 DM. Patient seen evaluated, nontoxic appearing
[2024-01-05 22:56] VITALS: PULSE 72; RESP 20; O2SAT 100
[2024-01-05] MEDS: predniSONE 20 MG TABLET 40 MG PO (22:58)
[2024-01-05 23:00] LABS: D Dimer 0.42 mg/L (0.19-0.50); INR 0.9; Partial Thromboplastin Time 28.8 SEC (23.90-30.70); Prothrombin Time 10.4 Seconds (9.50-12.10)
[2024-01-05 23:08] LABS: Alanine Aminotransferase 23 U/L (16-63); Albumin Level 3.6 g/dL (3.4-5.0); Alkaline Phosphatase 81 U/L (46-116); Anion Gap 9 mmol/L (8-16); Aspartate Amino Transferase 16 U/L (15-37); Bilirubin,Total 0.3 mg/dL (0.00-1.00); Blood Urea Nitrogen 8 mg/dL (7-18); Calcium 8.9 mg/dL (8.5-10.1); Carbon Dioxide 30 mmol/L (21-32); Chloride 102 mmol/L (98-108); Estimated CRCL calculation 178 ml/min; Estimated Glomerular Filt Rate > 60; Glucose 98 mg/dL (70-99); Lipase 41 U/L (16-77); NT Pro B Type Natriuretic Pept 27 pg/mL (0-125); Osmolality Calculated 290 mOsm/kg (285-295); Potassium 3.8 mmol/L (3.5-5.1); Sodium 141 mmol/L (136-145); Total Protein 7.4 g/dL (6.4-8.2)
[2024-01-05 23:22] LABS: SARS-CoV-2 RNA PCR Negative (Negative)
[2024-01-05 23:23] LABS: Influenza A QL RT-PCR Negative (Negative); Influenza B QL RT-PCR Negative (Negative); RSV RNA, RT-PCR Negative (Negative)
[2024-01-05] MEDS: DOXYCYCLINE HYCLATE 100 MG TABLET PO (23:50)
[2024-01-05 23:59] VITALS: BP 135/81; PULSE 72; RESP 20; TEMP 37; O2SAT 100
== END 2024-01-05 23:59 | disposition home or self-care (01) ==
PROVIDERS: Emergency Provider Student in an Organized Health Care Education/Training Program; PCP Nurse Practitioner Family
DX: J44.1 Chronic obstructive pulmonary disease with (acute) exacerbation (principal); E78.5 Hyperlipidemia, unspecified; E11.9 Type 2 diabetes mellitus without complications; I10 Essential (primary) hypertension; E03.9 Hypothyroidism, unspecified; Z20.822 Contact with and (suspected) exposure to COVID-19
CPT/HCPCS: 36415; 71046; 80053; 83690; 83880; 84484; 85025; 85380; 85610; 85730; 87637; 93005; 99284; A9270; J7512

== ENCOUNTER 2024-02-17 07:19 | Outpatient (CLI) | payer BC, SELFPAY ==
[2024-02-22 13:03] LABS: Vitamin D 1,25 (OH)2 Total 66 pg/mL (18-72); Vitamin D2 1,25 (OH)2 <8 pg/mL; Vitamin D3 1,25 (OH)2 66 pg/mL
== END 2024-02-17 07:20 | disposition home or self-care (01) ==
PROVIDERS: PCP Nurse Practitioner Family; Visit Provider Nurse Practitioner Family
DX: E55.9 Vitamin D deficiency, unspecified (principal)
CPT/HCPCS: 36415; 82652

== ENCOUNTER 2024-05-30 09:16 | Outpatient (CLI) | payer BC, SELFPAY ==
--- NOTE | ~2024-05-30 | XR_ITS ---
XR knee RT 3V Ordering provider: Nya Rivera NP History: . M25.561 - Pain in right knee . Comparison: December 22, 2020 FINDINGS: BONES: No acute fracture or dislocation. JOINT SPACES: Slight narrowing of the medial compartment. SOFT TISSUES: Normal. IMPRESSION: No acute osseous abnormality right knee. Mild osteoarthritic changes. Reviewed, dictated and finalized at location A.
--- NOTE | ~2024-05-30 | XR_ITS ---
XR knee LT 3V Ordering provider: Nya Rivera NP History: . M25.562 - Pain in left knee . Comparison: None. FINDINGS: BONES: No acute fracture or dislocation. JOINT SPACES: Narrowing of the medial compartment. SOFT TISSUES: Normal. IMPRESSION: No acute osseous abnormality left knee. Mild osteoarthritic changes. Reviewed, dictated and finalized at location A.
== END 2024-05-30 09:17 | disposition home or self-care (01) ==
PROVIDERS: PCP Nurse Practitioner Family; Visit Provider Nurse Practitioner Family
DX: M25.561 Pain in right knee (principal); M25.562 Pain in left knee; M17.0 Bilateral primary osteoarthritis of knee
CPT/HCPCS: 73562

== ENCOUNTER 2024-06-20 17:07 | Outpatient (CLI) | payer BC, SELFPAY ==
[2024-06-20 17:20] LABS: Basophils Absolute Auto 0.03 K/mm3 (0.00-0.10); Basophils Percent Auto 0.4 % (0.0-1.0); Eosinophils Absolute Auto 0.06 K/mm3 (0.02-0.50); Eosinophils Percent Auto 0.8 % (1.0-6.0); Hemoglobin 13.6 g/dL (14.0-18.0); Immature Granulocyte Absolute 0.03 K/mm3 (0.00-0.00); Immature Granulocyte Percent A 0.4 % (0.0-0.0); Lymphocytes Absolute Auto 2.25 K/mm3 (1.10-4.50); Lymphocytes Percent Auto 30.9 % (18.0-42.0); Mean Corpuscular Hemoglobin 29.7 pg (27.0-31.0); Mean Corpuscular Volume 87.3 fL (78.0-102.0); Mean Platelet Volume 8.8 fl (8.7-11.0); Monocytes Absolute Auto 0.47 K/mm3 (0.10-0.90); Monocytes Percent Auto 6.5 % (2.0-11.0); Neutrophils Absolute Auto 4.44 K/mm3 (1.70-7.20); Platelet Count Result 234 K/mm3 (150-420); Red Blood Count 4.58 M/mm3 (4.70-6.10); Red Cell Distribution Width 12.8 % (11.6-14.4); White Blood Count 7.3 K/mm3 (4.8-10.8)
[2024-06-20 17:40] LABS: Hemoglobin A1C 5.4 % (<5.7)
[2024-06-20 17:55] LABS: Alanine Aminotransferase 22 U/L (16-63); Alkaline Phosphatase 80 U/L (46-116); Anion Gap 7 mmol/L (4-12); Aspartate Amino Transferase 19 U/L (15-37); Bilirubin,Total 0.5 mg/dL (0.00-1.00); Blood Urea Nitrogen 13 mg/dL (7-18); Calcium 9.1 mg/dL (8.5-10.1); Carbon Dioxide 31 mmol/L (21-32); Chloride 100 mmol/L (98-108); Cholesterol 175 mg/dL (0-200); Estimated Glomerular Filt Rate > 60; Free T4 Free Thyroxine 1.28 ng/dL (0.76-1.46); Glucose 85 mg/dL (70-99); HDL Direct 46 mg/dL (40-60); LDL Cholesterol Calculated 110 mg/dL (<130); Osmolality Calculated 285 mOsm/kg (285-295); Potassium 4.1 mmol/L (3.5-5.1); Sodium 138 mmol/L (136-145); Thyroid Stimulating Hormone 0.31 uIU/mL (0.36-3.74); Total Protein 7.3 g/dL (6.4-8.2); Triglycerides 93 mg/dL (0-150)
[2024-06-22 03:44] LABS: Vitamin D 25 Hydroxy 59 ng/mL (30-100)
== END 2024-06-20 17:08 | disposition home or self-care (01) ==
PROVIDERS: PCP Nurse Practitioner Family; Visit Provider Nurse Practitioner Family
DX: E55.9 Vitamin D deficiency, unspecified (principal); Z13.6 Encounter for screening for cardiovascular disorders; E78.5 Hyperlipidemia, unspecified; E03.9 Hypothyroidism, unspecified; E78.1 Pure hyperglyceridemia; E11.69 Type 2 diabetes mellitus with other specified complication; I10 Essential (primary) hypertension; Z79.899 Other long term (current) drug therapy
CPT/HCPCS: 36415; 80053; 80061; 82306; 83036; 84439; 84443; 85025

== ENCOUNTER 2024-08-24 07:35 | Outpatient (CLI) | payer BC, SELFPAY ==
[2024-08-24 08:57] LABS: Alanine Aminotransferase 22 U/L (16-63); Albumin Level 3.8 g/dL (3.4-5.0); Alkaline Phosphatase 75 U/L (46-116); Anion Gap 10 mmol/L (4-12); Aspartate Amino Transferase 14 U/L (15-37); Bilirubin,Total 0.6 mg/dL (0.00-1.00); Blood Urea Nitrogen 13 mg/dL (7-18); Carbon Dioxide 28 mmol/L (21-32); Chloride 104 mmol/L (98-108); Estimated Glomerular Filt Rate > 60; Glucose 96 mg/dL (70-99); Osmolality Calculated 294 mOsm/kg (285-295); Potassium 4.1 mmol/L (3.5-5.1); Sodium 142 mmol/L (136-145); Total Protein 7.1 g/dL (6.4-8.2)
[2024-08-27 06:49] LABS: C-Peptide 2.93 ng/mL (0.80-3.85); Cortisol Random 6.9 mcg/dL
== END 2024-08-24 07:36 | disposition home or self-care (01) ==
PROVIDERS: PCP Family Medicine; Visit Provider Family Medicine
DX: E16.2 Hypoglycemia, unspecified (principal)
CPT/HCPCS: 36415; 80053; 82533; 83525; 83527; 84305; 84681; 86337

== ENCOUNTER 2024-09-28 21:17 | Emergency (ER) | payer BC, SELFPAY ==
[2024-09-28 21:17] VITALS: BP 150/83; PULSE 80; RESP 18; TEMP 36.4; O2SAT 97
--- NOTE | 2024-09-28 21:40 | PC.NURSE ---
DR CHOI AT THE BEDSIDE. PATIENT WAS ABLE TO GIVE URINE SAMPLE. TAKEN TO LAB.
--- NOTE | 2024-09-28 22:07 | ED.GENADULT ---
HPI - General Adult General Chief complaint: Unspecified Stated complaint: Dehydration Time Seen by Provider: 09/28/24 21:35 Source: patient Mode of arrival: ambulatory Limitations: no limitations History of Present Illness HPI narrative: patient is a 49-year-old male with a significant past medical history that presents today for dehydration and a headache. Patient states that he feels like he is very dehydrated and has not urinated very much today because the dehydration. He says he felt like he drink enough water but his urine is very dark colored and he has not urinated all day until today at the ER he was able to urinate normally. His urine was very dark colored. He states he also has a very bad headache and he does have a history migraines with this feels different and wants something for the headache as well. Onset (ago): hour(s) Location: head Radiation: non-radiation Severity: moderate Severity scale (1-10): 4 Quality: aching Pain Consistency: constant Relieving factors: none Exacerbating factors: none Associated symptoms: denies other symptoms Treatments prior to arrival: none Related Data Allergies Allergy/AdvReac Type Severity Reaction Status Date / Time Contrast Media Allergy Intermediate Itching Uncoded 09/19/24 13:55 Review of Systems Review of Systems: All systems reviewed & are unremarkable except as noted in HPI and below Constitutional: Constitutional: Reports as per HPI Eyes: Eyes: Reports no additional eye complaints ENT: Reports system reviewed and no additional complaints, except as documented Cardiovascular: Cardiovascular: Reports no additional cardiovascular complaints Respiratory: Respiratory: Reports no additional respiratory complaints Gastrointestinal: Gastrointestinal: Reports no additional gastrointestinal complaints Genitourinary: Genitourinary: Reports as per HPI Musculoskeletal: Musculoskeletal: Reports as per HPI Integumentary/Breasts: Skin/Breast: Reports system reviewed and no additional complaints, except as docu Neurologic: Reports system reviewed and no additional complaints, except as documented Psychiatric: Psychiatric: Reports no additional psychiatric complaints Endocrine: Endocrine: Reports no additional endocrine complaints Hematologic/Lymphatic: Hematologic/Lymphatic: Reports no additional hematologic/lymphatic complaints Allergic/Immunologic: Allergic/Immunologic: Reports no additional allergic/immunologic complaints [facility] Past Medical History Medical History Benign essential hypertension Bilateral lower extremity edema Cellulitis Chest pain Conjunctivitis COPD (chronic obstructive pulmonary disease) Cough Gout attack Hyperlipidemia associated with type 2 diabetes mellitus Hypothyroidism Left knee pain Loss of taste Migraine with aura and without status migrainosus Nonalcoholic fatty liver disease Obesity, morbid, BMI 50 or higher NABILA (obstructive sleep apnea) Pilonidal cyst Primary osteoarthritis of left knee Sore throat Type 2 diabetes mellitus with hypertriglyceridemia Surgical History Surgical History History of fasciotomy (~2010) History of left heart catheterization (LHC) History of oral surgery (~2001) Oral Extractions Social History Social History Smoking status: Never smoker Alcohol intake: never Alcohol use details: Rarely Substance use: never Substance use type: does not use Lack of Transportation: No Lack of Food: Never True Current Housing: I Have Housing Concerned About Future Housing: No Difficulty Paying Gas/Electric Bills: No Difficulty Paying for Meds: No Currently Unemployed: No Education: Master's Degree or Higher Difficulty w/ Childcare or Family Care: No Living arrangements: with family Occupation/Education: occupation Additional occupation/education comments: Paraprofessional Gender identity (if verbalized by the patient): Male Spiritual care concerns: No Agree to blood products: Yes Exam Const: General: cooperative, healthy appearing and comfortable HENMT: Head: normal to inspection and No palpable skull fracture present Ears: hearing grossly normal bilaterally Face/Nose/Sinus: Normal external nose present Eyes: General: appearance normal, both eyes and all related structures Visual Bennett: normal visual bennett by confrontation Neck: Neck: normal visual inspection, full ROM and no lymphadenopathy Thyroid: thyroid normal Chest: Chest palpation & inspection: normal inspection of the chest Resp: Effort & Inspection: normal respiratory effort and able to speak in complete sentences Auscultation: clear to auscultation bilaterally Cardio: Jugular venous distension: no JVD Palpation: normal PMI Rate: regular rate Rhythm: regular rhythm Bruits: Abdominal aortic bruit present GI: Inspection: normal to inspection : General: Yes bimanual renal exam normal bilaterally, No CVA tenderness and No no CVA tenderness Back/Spine/Pelvis: Back: No no CVA tenderness and No CVA tenderness Cervical Spine: normal cervical lordosis Skin: General skin exam: normal color and no rashes or lesions noted Neuro: General: oriented to person, oriented to place and oriented to time Extrem: General: normal to inspection and full ROM Psych: Appearance: grossly normal and well kempt Mental Status: mental status grossly normal Speech and movement: Normal speech and movement present Course Vital Signs Vital signs: Vital Signs Temperature 97.6 F 09/28/24 21:17 Pulse Rate 80 09/28/24 21:17 Respiratory Rate 18 09/28/24 21:17 Blood Pressure 150/83 H 09/28/24 21:17 Pulse Oximetry 97 09/28/24 21:17 Oxygen Delivery Room Air 09/28/24 21:17 Temperature 97.6 F 09/28/24 21:17 Pulse Rate 80 09/28/24 21:17 Respiratory Rate 18 09/28/24 21:17 Blood Pressure 150/83 H 09/28/24 21:17 Pulse Oximetry 97 09/28/24 21:17 Oxygen Delivery Room Air 09/28/24 21:17 Medical Decision Making MDM Narrative Medical decision making narrative: Patient states that he is dehydrated and feels like he is very dehydrated and has never felt like this before. He also says he has a terrible headache and has not had a headache this bad before but is not a migraine. Will rehydrate him with normal saline bolus and do a CBC CMP basic lab work on him and give him Toradol for the headache IV and reassess after lab work has come back and he is rehydrated and the headache has hopefully gone from the Toradol. Differential Diagnosis Differential Diagnosis: UTI, Dehydration Medical Records Medical records reviewed: Yes I reviewed the external patient's medical records. Vital Signs Vital Signs: Vital Signs Temperature 97.6 F 09/28/24 21:17 Pulse Rate 80 09/28/24 21:17 Respiratory Rate 18 09/28/24 21:17 Blood Pressure 150/83 H 09/28/24 21:17 Pulse Oximetry 97 09/28/24 21:17 Oxygen Delivery Room Air 09/28/24 21:17 Temperature 97.6 F 09/28/24 21:17 Pulse Rate 80 09/28/24 21:17 Respiratory Rate 18 09/28/24 21:17 Blood Pressure 150/83 H 09/28/24 21:17 Pulse Oximetry 97 09/28/24 21:17 Oxygen Delivery Room Air 09/28/24 21:17 Lab Data Lab results reviewed: Yes I reviewed the patient's lab results. 09/28/24 22:14 09/28/24 22:14 Labs: Lab Results 09/28/24 Range/Units 22:14 WBC 6.5 (4.8-10.8) K/mm3 RBC 3.77 L (4.70-6.10) M/mm3 Hgb 11.6 L (14.0-18.0) g/dL Hct 33.8 L (40.0-54.0) % MCV 89.7 (78.0-102.0) fL MCH 30.8 (27.0-31.0) pg MCHC 34.3 (32-36) g/dL RDW 12.1 (11.6-14.4) % Plt Count 282 (150-420) K/mm3 MPV 8.7 (8.7-11.0) fl Immature Gran % (Auto) 0.3 H (0.0-0.0) % Neut % (Auto) 71.3 H (50.0-70.0) % Lymph % (Auto) 20.0 (18.0-42.0) % [place] % (Auto) 6.7 (2.0-11.0) % Eos % (Auto) 1.5 (1.0-6.0) % Baso % (Auto) 0.2 (0.0-1.0) % Lymph # (Auto) 1.31 (1.10-4.50) K/mm3 [place] # (Auto) 0.44 (0.10-0.90) K/mm3 Eos # (Auto) 0.10 (0.02-0.50) K/mm3 Baso # (Auto) 0.01 (0.00-0.10) K/mm3 Abs Immat Gran (auto) 0.02 H (0.00-0.00) K/mm3 Absolute Neuts (auto) 4.66 (1.70-7.20) K/mm3 Absolute Nucleated RBC 0.00 (0.00-0.00) K/mm3 Nucleated RBC % 0.0 (0-0.0) % Sodium Pending Potassium Pending Chloride Pending Carbon Dioxide Pending Anion Gap Pending BUN Pending Creatinine Pending Estim Creat Clear Calc Pending Estimated GFR Pending Glucose Pending Calculated Osmolality Pending Calcium Pending Total Bilirubin Pending AST Pending ALT Pending Alkaline Phosphatase Pending Total Protein Pending Albumin Pending Urine Color Dark yellow (Yellow) Urine Appearance Sl cloudy A (Clear) Urine pH 6.0 (5.0-8.0) Ur Specific [place] 1.025 H (1.010-1.020) Urine Protein Trace H (Negative) Urine Glucose (UA) Negative (Negative) Urine Ketones Trace H (Negative) Ur Blood (Man) Negative (Negative) Urine Nitrate Negative (Negative) Urine Bilirubin Negative (Negative) Urine Urobilinogen 2.0 H (0.2-1.0) mg/dL Leukocyte Esterase Rfl Trace H (Negative) JOANN/UL Urine RBC 0-2 (0-2) /hpf Urine WBC 10-15 H (0-3) /hpf Ur Squamous Epith Cells Many H (Few) /hpf Amorphous Sediment Heavy H (None) Urine Bacteria 2+ H (None) /hpf Cellular Casts Present H (None) /lpf Hyaline Casts 15-19 H (None) /lpf Granular Casts 10-14 H (None) /lpf Discharge Plan Discharge Clinical Impression: Dehydration, Acute UTI Patient Disposition: Home, Self-Care Condition: Stable Instructions: Antibiotic Form Additional Instructions: take antibiotics as prescribed for UTI. Seven day course. Prescriptions: New ciprofloxacin HCl 500 mg tablet 500 mg PO Q12H Qty: 14 0RF No Action ipratropium-albuterol 0.5 mg-3 mg(2.5 mg base)/3 mL solution for nebulization 3 ml inhalation QID PRN (Reason: shortness of breath or wheezing) Qty: 180 0RF fluticasone propionate [Allergy Relief (fluticasone)] 50 mcg/actuation spray,suspension 2 spray intranasal DAILY Qty: 16 0RF Rx Instructions: administer into each nostril azithromycin [Zithromax Z-Stewart] 250 mg tablet See Rx Instructions PO .COMPLEX Qty: 6 0RF Rx Instructions: take 500 mg today (day 1), then 250 mg for 4 days (days 2-5) PO azelastine 137 mcg (0.1 %) spray,non-aerosol 2 spray intranasal Q12H Qty: 30 0RF Rx Instructions: administer into each nostril cholecalciferol (vitamin D3) 1,250 mcg (50,000 unit) capsule See Rx Instructions .ROUTE .COMPLEX Qty: 8 0RF Dose Instruction: Take 1 capsule by mouth once a week Rx Instructions: Take 1 capsule by mouth once a week albuterol sulfate 90 mcg/actuation HFA aerosol inhaler See Rx Instructions .ROUTE .COMPLEX Qty: 9 2RF Dose Instruction: INHALE 2 PUFFS BY MOUTH 4 TIMES DAILY NEEDED FOR SHORTNESS OF BREATH OR WHEEZING (USE WITH SPACER) Rx Instructions: INHALE 2 PUFFS BY MOUTH 4 TIMES DAILY NEEDED FOR SHORTNESS OF BREATH OR WHEEZING (USE WITH SPACER) gabapentin 300 mg capsule 300 mg PO QHS PRN (Reason: pain) Qty: 30 2RF losartan 50 mg tablet See Rx Instructions .ROUTE .COMPLEX Qty: 90 0RF Dose Instruction: Take 1 tablet by mouth once daily Rx Instructions: Take 1 tablet by mouth once daily atorvastatin 20 mg tablet See Rx Instructions .ROUTE .COMPLEX Qty: 90 0RF Dose Instruction: Take 1 tablet by mouth once daily Rx Instructions: Take 1 tablet by mouth once daily levothyroxine 200 mcg tablet See Rx Instructions .ROUTE .COMPLEX Qty: 30 0RF Dose Instruction: Take 1 tablet by mouth once daily Rx Instructions: Take 1 tablet by mouth once daily pantoprazole 40 mg tablet,delayed release (DR/EC) See Rx Instructions .ROUTE .COMPLEX Qty: 90 0RF Dose Instruction: TAKE 1 TABLET BY MOUTH ONCE DAILY AT BEDTIME Rx Instructions: TAKE 1 TABLET BY MOUTH ONCE DAILY AT BEDTIME montelukast 10 mg tablet See Rx Instructions .ROUTE .COMPLEX Qty: 90 0RF Dose Instruction: Take 1 tablet by mouth once daily Rx Instructions: Take 1 tablet by mouth once daily ibuprofen 800 mg tablet See Rx Instructions .ROUTE .COMPLEX Qty: 90 0RF Dose Instruction: TAKE 1 TABLET BY MOUTH THREE TIMES DAILY Rx Instructions: TAKE 1 TABLET BY MOUTH THREE TIMES DAILY glucagon 3 mg/actuation spray,non-aerosol 3 mg intranasal ONCE PRN (Reason: hypoglycemia) Qty: 2 0RF Rx Instructions: as a single dose Follow-up/Referrals: Nya Rivera NP [Primary Care Provider] - Time of Disposition: 22:58
[2024-09-28] MEDS: SODIUM CHLORIDE 0.9% IV 1,000 ML 999 ML IV CONT (22:12)
[2024-09-28] MEDS: KETOROLAC 30 MG/ML VIAL (*BKC) IV PUSH (22:13)
--- NOTE | 2024-09-28 22:21 | PC.NURSE ---
PATIENT WAS GIVEN ICE CHIPS PER DR CHOI. PATIENT UPDATED ON PLAN OF CARE. PATIENT REPORTS THAT HE DOES NOT NEED ANYTHING ELSE AT THIS TME. CALL LIGHT IN REACH
[2024-09-28 22:23] LABS: Basophils Absolute Auto 0.01 K/mm3 (0.00-0.10); Basophils Percent Auto 0.2 % (0.0-1.0); Eosinophils Percent Auto 1.5 % (1.0-6.0); Hematocrit 33.8 % (40.0-54.0); Hemoglobin 11.6 g/dL (14.0-18.0); Immature Granulocyte Absolute 0.02 K/mm3 (0.00-0.00); Immature Granulocyte Percent A 0.3 % (0.0-0.0); Lymphocytes Absolute Auto 1.31 K/mm3 (1.10-4.50); Mean Corpuscular HGB Conc 34.3 g/dL (32-36); Mean Corpuscular Hemoglobin 30.8 pg (27.0-31.0); Mean Corpuscular Volume 89.7 fL (78.0-102.0); Mean Platelet Volume 8.7 fl (8.7-11.0); Monocytes Absolute Auto 0.44 K/mm3 (0.10-0.90); Monocytes Percent Auto 6.7 % (2.0-11.0); Neutrophils Absolute Auto 4.66 K/mm3 (1.70-7.20); Neutrophils Percent Auto 71.3 % (50.0-70.0); Platelet Count Result 282 K/mm3 (150-420); Red Blood Count 3.77 M/mm3 (4.70-6.10); Red Cell Distribution Width 12.1 % (11.6-14.4); White Blood Count 6.5 K/mm3 (4.8-10.8)
[2024-09-28 22:37] LABS: Add Urine Microscopic? YES; Bilirubin Urine Negative (Negative); Blood Urine Negative (Negative); Color Urine Dark Yellow (Yellow); Glucose Urine UA Negative (Negative); Ketones Urine Trace (Negative); Leukocyte Esterase Ur Trace LEU/UL (Negative); Nitrate Urine Negative (Negative); Protein Urine Trace (Negative); Specific Grav Ur 1.025 (1.010-1.020)
[2024-09-28 22:49] LABS: Amorphous Sediment Urine Heavy; Appearance Urine Sl Cloudy (Clear); Bacteria Urine 2+ /hpf; RBC Urine 0-2 /hpf (0-2); Squamous Epithelial Cell Urine Many /hpf (Few)
[2024-09-28 22:50] LABS: Cellular Casts Urine Present /lpf; Hyaline Casts Urine 15-19 /lpf
[2024-09-28 22:51] LABS: Alanine Aminotransferase 37 U/L (16-63); Albumin Level 2.8 g/dL (3.4-5.0); Alkaline Phosphatase 83 U/L (46-116); Anion Gap 8 mmol/L (4-12); Aspartate Amino Transferase 25 U/L (15-37); Bilirubin,Total 1.3 mg/dL (0.00-1.00); Blood Urea Nitrogen 12 mg/dL (7-18); Calcium 9.1 mg/dL (8.5-10.1); Carbon Dioxide 30 mmol/L (21-32); Chloride 101 mmol/L (98-108); Estimated CRCL calculation 157 ml/min; Estimated Glomerular Filt Rate > 60; Glucose 107 mg/dL (70-99); Osmolality Calculated 287 mOsm/kg (285-295); Potassium 3.6 mmol/L (3.5-5.1); Sodium 139 mmol/L (136-145); Total Protein 7.5 g/dL (6.4-8.2)
[2024-09-28] MEDS: CIPROFLOXACIN 500 MG TAB PO (23:04)
[2024-09-28 23:25] VITALS: BP 119/81; PULSE 78; RESP 18; O2SAT 99
--- NOTE | 2024-10-01 13:30 | PC.NURSE ---
FINAL URINE CULTURE REPORT; NO GROWTH, NO FURTHER ACTION OR TREATMENT NEEDED.
== END 2024-09-28 23:25 | disposition home or self-care (01) ==
PROVIDERS: Emergency Provider Family Medicine; PCP Nurse Practitioner Family
DX: E86.0 Dehydration (principal); N39.0 Urinary tract infection, site not specified; I10 Essential (primary) hypertension; E78.5 Hyperlipidemia, unspecified; E03.9 Hypothyroidism, unspecified; J44.9 Chronic obstructive pulmonary disease, unspecified; E11.9 Type 2 diabetes mellitus without complications
CPT/HCPCS: 36415; 80053; 81001; 85025; 87086; 96361; 96374; 99284; A9270; J1885; J7030

== ENCOUNTER 2024-10-14 16:31 | Outpatient (CLI) | payer BC, SELFPAY ==
[2024-10-14 16:50] LABS: Add Urine Microscopic? NO; Appearance Urine Clear (Clear); Bilirubin Urine Negative (Negative); Blood Urine Negative (Negative); Color Urine Light Yellow (Yellow); Glucose Urine UA Negative (Negative); Ketones Urine Negative (Negative); Leukocyte Esterase Ur Negative (Negative); Nitrate Urine Negative (Negative); Protein Urine Negative (Negative); Specific Grav Ur 1.015 (1.010-1.020); Urobilinogen Urine 0.2 mg/dL (0.2-1.0)
[2024-10-14 17:29] LABS: Iron 63 ug/dL (65-175); Percent Iron Saturation 18 % (12-57); Thyroid Stimulating Hormone 4.67 uIU/mL (0.36-3.74)
[2024-10-18 01:48] LABS: Insulin Level Total 28.1 uIU/mL
== END 2024-10-14 16:32 | disposition home or self-care (01) ==
LOC: CHSLAB 16:32
PROVIDERS: PCP Nurse Practitioner Family; Visit Provider Nurse Practitioner Family
DX: R39.9 Unspecified symptoms and signs involving the genitourinary system (principal); R79.89 Other specified abnormal findings of blood chemistry; E03.9 Hypothyroidism, unspecified
CPT/HCPCS: 36415; 81003; 83525; 83540; 83550; 84305; 84443

== ENCOUNTER 2024-11-27 15:27 | Emergency (ER) | payer OTHER, SELFPAY ==
--- NOTE | ~2024-11-27 | XR_ITS ---
EXAMINATION: XR chest 1V portable Exam Date/Time: 11/27/2024 15:51 POOL TABLE MECHANIC HISTORY: Chest tightness under LT breast and around back Comparison: 01/05/2024. RESULT: Lines, tubes, and devices: None. Lungs and pleura: Clear. Cardiomediastinal silhouette: Stable. Other: No acute osseous or upper abdominal finding. IMPRESSION: No acute cardiopulmonary process. Reviewed, dictated and finalized at location K. TABLE MECHANIC
[2024-11-27 15:27] VITALS: BP 125/74; PULSE 68; RESP 18; TEMP 36.3; O2SAT 97
[2024-11-27 15:30] VITALS: O2SAT 97
--- NOTE | 2024-11-27 15:36 | ED_ITS ---
HPI - Chest Pain General Chief Complaint: Upper Respiratory Infection Stated Complaint: chest tightness Time Seen by Provider: 11/27/24 15:36 Source: patient Mode of arrival: ambulatory Limitations: no limitations History of Present Illness HPI narrative: 49-year-old male with a history of obesity status post gastric bypass in 2022,hypertension,dyslipidemia, COPD( nonsmoker), NABILA, hypothyroidism, diabetes mellitus, fatty liver, negative cardiac catheterization in 2010 tested positive influenza a and strep cough yesterday and was prescribed Tamiflu and penicillin. He presents to the ED today with -- chest tightness which is continuously present. The discomfort is rated as 6/10. No radiation of discomfort. No relation to exercise. -- No shortness of breath MD complaint: chest heaviness Onset (ago): day(s) ( 1 day) Timing of current episode: constant Prior episodes: No Onset: during rest Pain location: substernal Pain radiation: none Pain scale (0-10): 6 Quality: tightness Relieving factors: nothing Exacerbating factors: nothing Associated symptoms: leg swelling Treatment prior to arrival: none Risk Factors Coronary artery disease risk factors: diabetes, hyperlipidemia and hypertension Thoracic aortic dissection risk factors: longstanding hypertension Related Data Allergies Allergy/AdvReac Type Severity Reaction Status Date / Time Contrast Media Allergy Intermediate Itching Uncoded 11/27/24 15:35 Review of Systems 2 Review of Systems: All systems reviewed & are unremarkable except as noted in HPI and below Constitutional: Constitutional: Reports as per HPI and Reports no additional constitutional complaints Eyes: Eyes: Reports as per HPI and Reports no additional eye complaints ENT: Reports system reviewed and no additional complaints, except as documented and Reports as per HPI Cardiovascular: Cardiovascular: Reports as per HPI, Reports no additional cardiovascular complaints and Reports chest pain Respiratory: Respiratory: Reports as per HPI and Reports no additional respiratory complaints Gastrointestinal: Gastrointestinal: Reports as per HPI and Reports no additional gastrointestinal complaints Genitourinary: Genitourinary: Reports no additional male genitourinary complaints Musculoskeletal: Musculoskeletal: Reports no additional musculoskeletal complaints and Reports as per HPI Integumentary/Breasts: Skin/Breast: Reports system reviewed and no additional complaints, except as docu and Reports as per HPI Neurologic: Reports system reviewed and no additional complaints, except as documented and Reports as per HPI Psychiatric: Psychiatric: Reports no additional psychiatric complaints and Reports as per HPI Endocrine: Endocrine: Reports no additional endocrine complaints and Reports as per HPI Hematologic/Lymphatic: Hematologic/Lymphatic: Reports no additional hematologic/lymphatic complaints and Reports as per HPI Allergic/Immunologic: Allergic/Immunologic: Reports no additional allergic/immunologic complaints and Reports as per HPI [facility] Past Medical History Medical History Conjunctivitis Benign essential hypertension Primary osteoarthritis of left knee Cough Loss of taste Sore throat Obesity, morbid, BMI 50 or higher Chest pain Gout attack Bilateral lower extremity edema Cellulitis Left knee pain Pilonidal cyst NABILA (obstructive sleep apnea) Nonalcoholic fatty liver disease Migraine with aura and without status migrainosus Hyperlipidemia associated with type 2 diabetes mellitus Type 2 diabetes mellitus with hypertriglyceridemia COPD (chronic obstructive pulmonary disease) Hypothyroidism Surgical History Surgical History History of oral surgery (~2001) Oral Extractions History of fasciotomy (~2010) History of left heart catheterization (LHC) Social History Social History Smoking status: Never smoker Alcohol intake: never Alcohol use details: Rarely Substance use: never Substance use type: does not use Lack of Transportation: No Lack of Food: Never True Current Housing: I Have Housing Concerned About Future Housing: No Difficulty Paying Gas/Electric Bills: No Difficulty Paying for Meds: No Currently Unemployed: No Education: Master's Degree or Higher Difficulty w/ Childcare or Family Care: No Living arrangements: with family Occupation/Education: occupation Additional occupation/education comments: Paraprofessional Gender identity (if verbalized by the patient): Male Spiritual care concerns: No Agree to blood products: Yes Exam 2 Narrative: afebrile. Oxygen saturation of 97% on room air. Const: General: healthy appearing and no acute distress Nutritional Appearance: well nourished Orientation/consciousness: patient oriented x3 Limitations: no limitations HENMT: Head: normal to inspection Ears: external ears normal F judah/Nose/Sinus: Normal external nose present Face and sinus: normal facial exam Mouth: Yes Normal oral and palatal mucosa present Throat: posterior oropharynx normal Eyes: Conjunctivae: conjunctivae normal Pupils: Equal, round and reactive pupils present EOM: EOMs intact bilaterally Direct Ophthalmoscopy: no photophobia Neck: Neck: normal visual inspection, no lymphadenopathy and no meningeal signs Chest: Chest palpation & inspection: normal inspection of the chest Resp: Effort & Inspection: normal respiratory effort Auscultation: d iminished lung sounds Cardio: Rate: regular rate Rhythm: regular rhythm Heart sounds: Murmur heart sound present GI: GI Palp: Yes Soft to palpation Auscultation: normal bowel sounds O ther: No tenderness/rigidity / rebound. : General: Yes no CVA tenderness Back/Spine/Pelvis: Back: no CVA tenderness Skin: General skin exam: normal color Rashes: no rashes Wounds: no wounds Neuro: General: patient oriented x3, moves all extremities, no meningeal signs, no focal motor deficits and CN's II-XI intact bilaterally Cranial nerves: Yes Nystagmus not present Speech: normal speech Gait exam (Neuro): Normal gait present Extrem: General: normal to inspection and no clubbing, cyanosis or edema Psych: Mental Status: mental status grossly normal Affect: normal affect Attitude: cooperative Course Course Emergency Course: Chest tightness-- chest x-ray does not show any acute findings. Chest auscultation did not reveal any significant bronchospasm. Negative troponins. patient has had a negative cardiac catheterization in 2010. Subsequently has not had any history of chest pain/TN/angina COPD-- appears stable on treatment for influenza a and strep. Vital Signs Vital signs: Vital Signs Temperature 36.3 C L 11/27/24 15:27 Pulse Rate 68 11/27/24 15:27 Respiratory Rate 18 11/27/24 15:27 Blood Pressure 125/74 11/27/24 15:27 Pulse Oximetry 97 11/27/24 15:27 Oxygen Delivery Room Air 11/27/24 15:27 Temperature 36.3 C L 11/27/24 15:27 Pulse Rate 58 L 11/27/24 16:49 Respiratory Rate 14 11/27/24 16:49 Blood Pressure 118/78 11/27/24 16:49 Pulse Oximetry 98 11/27/24 16:49 Oxygen Delivery Room Air 11/27/24 16:49 MDM - Chest Pain MDM Narrative Medical decision making narrative: Chest tightness COPD Differential Diagnosis Differential diagnosis: Likely pneumothorax and atypical chest pain Medical Records Data Attestation: I reviewed the patient's medical records. Lab Data Attestation: I reviewed the patient's lab results. 11/27/24 16:17 11/27/24 16:17 Labs: Lab Results 11/27/24 Range/Units 16:17 WBC 4.9 (4.8-10.8) K/mm3 RBC 4.25 L (4.70-6.10) M/mm3 Hgb 12.9 L (14.0-18.0) g/dL Hct 38.3 L (40.0-54.0) % MCV 90.1 (78.0-102.0) fL MCH 30.4 (27.0-31.0) pg MCHC 33.7 (32-36) g/dL RDW 13.1 (11.6-14.4) % Plt Count 214 (150-420) K/mm3 MPV 8.8 (8.7-11.0) fl Immature Gran % (Auto) 0.4 H (0.0-0.0) % Neut % (Auto) 55.0 (50.0-70.0) % Lymph % (Auto) 35.4 (18.0-42.0) % [place] % (Auto) 7.6 (2.0-11.0) % Eos % (Auto) 1.4 (1.0-6.0) % Baso % (Auto) 0.2 (0.0-1.0) % Lymph # (Auto) 1.73 (1.10-4.50) K/mm3 [place] # (Auto) 0.37 (0.10-0.90) K/mm3 Eos # (Auto) 0.07 (0.02-0.50) K/mm3 Baso # (Auto) 0.01 (0.00-0.10) K/mm3 Abs Immat Gran (auto) 0.02 H (0.00-0.00) K/mm3 Absolute Neuts (auto) 2.69 (1.70-7.20) K/mm3 Absolute Nucleated RBC 0.00 (0.00-0.00) K/mm3 Nucleated RBC % 0.0 (0-0.0) % Sodium 139 (136-145) mmol/L Potassium 3.6 (3.5-5.1) mmol/L Chloride 103 (98-108) mmol/L Carbon Dioxide 30 (21-32) mmol/L Anion Gap 6 (4-12) mmol/L BUN 8 (7-18) mg/dL Creatinine 0.72 (0.70-1.30) mg/dL Estim Creat Clear Calc 168 ml/min Estimated GFR > 60 (59 - ) Glucose 98 (70-99) mg/dL Calculated Osmolality 286 (285-295) mOsm/kg Calcium 8.6 (8.5-10.1) mg/dL Total Bilirubin 0.5 (0.00-1.00) mg/dL AST 14 L (15-37) U/L ALT 22 (16-63) U/L Alkaline Phosphatase 52 (46-116) U/L Troponin I 4.8 (0.00-60.4) ng/L NT-Pro-B Natriuret Pep 61 (0-125) pg/mL Total Protein 6.5 (6.4-8.2) g/dL Albumin 3.3 L (3.4-5.0) g/dL ECG Data EKG #1: ECG completion date: 11/27/24 ECG completion time: 16:04 Interpretation: Normal sinus rhythm. Normal axis. Early repolarization syndrome. No ST elevation. Discharge Plan Discharge Clinical Impression: Chest tightness, COPD exacerbation Patient Disposition: Home, Self-Care Condition: Stable Instructions: Antibiotic Form, Chest Pain (DC), COPD (Chronic Obstructive Pulmonary Disease) (ED) Patient Language: Marshallese Prescriptions: No Action fluticasone propionate [Allergy Relief (fluticasone)] 50 mcg/actuation spray,suspension 2 spray intranasal DAILY Qty: 16 0RF Rx Instructions: administer into each nostril azelastine 137 mcg (0.1 %) spray,non-aerosol 2 spray intranasal Q12H Qty: 30 0RF Rx Instructions: administer into each nostril oseltamivir [Tamiflu] 75 mg capsule 75 mg PO Q12H 5 Days Qty: 10 0RF penicillin V potassium 500 mg tablet 500 mg PO Q12H 10 Days Qty: 20 0RF ondansetron 8 mg tablet,disintegrating 8 mg PO Q12H PRN (Reason: nausea and vomiting) Qty: 20 0RF ipratropium-albuterol 0.5 mg-3 mg(2.5 mg base)/3 mL solution for nebulization 3 ml inhalation QID PRN (Reason: shortness of breath or wheezing) Qty: 180 0RF cholecalciferol (vitamin D3) 1,250 mcg (50,000 unit) capsule See Rx Instructions .ROUTE .COMPLEX Qty: 8 0RF Dose Instruction: Take 1 capsule by mouth once a week Rx Instructions: Take 1 capsule by mouth once a week albuterol sulfate 90 mcg/actuation HFA aerosol inhaler See Rx Instructions .ROUTE .COMPLEX Qty: 9 2RF Dose Instruction: INHALE 2 PUFFS BY MOUTH 4 TIMES DAILY NEEDED FOR SHORTNESS OF BREATH OR WHEEZING (USE WITH SPACER) Rx Instructions: INHALE 2 PUFFS BY MOUTH 4 TIMES DAILY NEEDED FOR SHORTNESS OF BREATH OR WHEEZING (USE WITH SPACER) gabapentin 300 mg capsule 300 mg PO QHS PRN (Reason: pain) Qty: 30 2RF pantoprazole 40 mg tablet,delayed release (DR/EC) See Rx Instructions .ROUTE .COMPLEX Qty: 90 0RF Dose Instruction: TAKE 1 TABLET BY MOUTH ONCE DAILY AT BEDTIME Rx Instructions: TAKE 1 TABLET BY MOUTH ONCE DAILY AT BEDTIME montelukast 10 mg tablet See Rx Instructions .ROUTE .COMPLEX Qty: 90 0RF Dose Instruction: Take 1 tablet by mouth once daily Rx Instructions: Take 1 tablet by mouth once daily ibuprofen 800 mg tablet See Rx Instructions .ROUTE .COMPLEX Qty: 90 0RF Dose Instruction: TAKE 1 TABLET BY MOUTH THREE TIMES DAILY Rx Instructions: TAKE 1 TABLET BY MOUTH THREE TIMES DAILY glucagon 3 mg/actuation spray,non-aerosol 3 mg intranasal ONCE PRN (Reason: hypoglycemia) Qty: 2 0RF Rx Instructions: as a single dose ferrous sulfate [Iron (ferrous sulfate)] 325 mg (65 mg iron) tablet 325 mg PO DAILY 90 Days Qty: 90 0RF atorvastatin 20 mg tablet See Rx Instructions .ROUTE .COMPLEX Qty: 90 0RF Dose Instruction: Take 1 tablet by mouth once daily Rx Instructions: Take 1 tablet by mouth once daily losartan 50 mg tablet See Rx Instructions .ROUTE .COMPLEX Qty: 90 0RF Dose Instruction: Take 1 tablet by mouth once daily Rx Instructions: Take 1 tablet by mouth once daily levothyroxine 200 mcg tablet See Rx Instructions .ROUTE .COMPLEX Qty: 90 2RF Dose Instruction: Take 1 tablet by mouth once daily Rx Instructions: Take 1 tablet by mouth once daily levothyroxine 25 mcg tablet 25 mcg PO DAILY 56 Days Qty: 56 0RF Rx Instructions: take with levothyroxine 200 mcg tablet for total of 225 mcg once daily Follow-up/Referrals: Nya Rivera [employer] [Primary Care Provider] - Time of Disposition: 17:01
--- NOTE | 2024-11-27 15:51 | ECG_ITS ---
Test Date: 2024-11-27 16:04:01 Measurements Intervals [place] Rate: 60 P: 49 [place]: 195 QRS: 24 QRSD: 105 T: 62 QT: 354 QTc: 354 Interpretive Statements SINUS RHYTHM No previous ECG available for comparison Electronically Signed On 11-28-2024 11:31:30 [employer] by Khai Romero M.D.
--- OUTSIDE RECORDS SUMMARY | 2024-11-27 16:11 | XMS_ITS | Patient Health Record ---
Author Organization [facility] Address [address] [place], [place] [id number] Care Team Providers Care Spring Bender Name Role Phone Nya Rivera Unavailable Unavailable ALBANIACOLUMBA SALAMANCA Unavailable [phone] Allergies No Known Allergies Reason For Referral No Information Encounters Encounter Location Date Provider Diagnosis [facility] [address] [place], [place] [id number] 06/06/2024 COLUMBAHUMERA GOMEZAUGUSTO Unspecified atherosclerosis of pechanga arteries of extremities, bilateral legs I70.203 ; Tinea unguium B35.1 ; Acquired keratosis [keratoderma] palmaris et plantaris L85.1 ; Other hammer toe(s) (acquired), right foot M20.41 ; Other hammer toe(s) (acquired), left foot M20.42 ; Flat foot [pes planus] (acquired), left foot M21.42 ; Flat foot [pes planus] (acquired), right foot M21.41 ; Pain in right toe(s) M79.674 and Pain in left toe(s) M79.675 Assessments Encounter Date Diagnosis (ICD Code) Assessment Notes Treatment Notes Treatment Clinical Notes Section Notes 06/06/2024 Tinea unguium (ICD-10 - B35.1) Aseptic debridement of elongated thickened nails x 10 using sterile nippers, nails were debrided in length and thickness by 30% utilizing a nail nipper without incident. The patient was educated regarding all treatment options that include topical and oral antifungal treatments. I discussed the options of taking a sample of the nail to confirm diagnosis. Nail clippings were not sent for pathology analysis. The patient was educated why and how the fungal infection evolved in their feet and the patient was given information regarding how to prevent further infection. The patient was told to keep feet dry and change socks. The patient was told to be careful with old shoes and excessive sweating. The patient was educated regarding both OTC and prescription treatments. 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 After removal of overlying extensive hyperkeratosis, healthy tissue was noted and care was taken to assure that no undermining or probing was present. It should be noted that no probing was noted and no infection or drainage was noted. 06/06/2024 Other hammer toe(s) (acquired), right foot (ICD-10 - M20.41) The patient was educated regarding how to mechanically stabilize their deformity. The patient was given education about shoe recommendations specific for the condition. The patient was educated about custom orthotics and how appropriate shoes and orthotics can prevent further worsening of the deformity. The patient was educated about how bad shoe habits can worsen the condition. NSAIDS, P.T., injections and other conservative treatments were discussed. Both surgical and non surgical treatments were discussed, but conservative options were emphasized. 06/06/2024 Other hammer toe(s) (acquired), left foot (ICD-10 - M20.42) 06/06/2024 Flat foot [pes planus] (acquired), left foot (ICD-10 - M21.42) Patient educated on etiology and treatment options for flexible flat foot deformity. Educated patient on how a flexible flat foot deformity can in turn result in pathology such as hammer toe, bunions, equinus, neuromas. Recommend use of custom foot inserts to help alleviate plantar peak pressures and accomodate for digital deformity to feet. The patient was dispensed and fitted with over the counter power step pinnacle arch supports. The patient was educated on their use and effect. All questions were answered. 06/06/2024 Flat foot [pes planus] (acquired), right foot (ICD-10 - M21.41) 06/06/2024 Pain in right toe(s) (ICD-10 - M79.674) 06/06/2024 Pain in left toe(s) (ICD-10 - M79.675) Plan Of Treatment No Information Insurance Providers Payer Name Payer Address Payer Phone Subscriber Number Group Number Insured Name Patient Relationship to Insured Coverage Start Date Coverage End Date [facility] ([facility]) ATTN CLAIMS [address] [place] [address] [id number] EMMANUEL JOE Self - patient is the insured Medical (General) History Medical History History ICD Code asthma - mild intermittent Respiratory disease Arthritis Gout Sleep apnea Thyroid Disease angina high blood pressure
--- OUTSIDE RECORDS SUMMARY | 2024-11-27 16:11 | XMS_ITS | Clinical Summary ---
Author Organization [facility] Address [address] [place] [address]. [place] [address] [place] [address] Care Team Providers Care Answering Service Operator Name Role Phone Mehrdad English DO Primary Care Provider [phone] Allergies Active Allergy Reactions Criticality Noted Date Comments Iodine Hives Low 04/28/2023 Medications levothyroxine (SYNTHROID) 175 MCG tablet Take 1 tablet (175 mcg total) by mouth daily. 10/27/2022 Active atorvastatin (LIPITOR) 20 MG tablet Take 1 tablet (20 mg total) by mouth daily. 01/21/2023 Active vitamin D3, cholecalciferol , 1.25 mg capsule Take 1 capsule (1.25 mg total) by mouth once a week. 02/20/2023 Active losartan (COZAAR) 50 MG tablet Take 1 tablet (50 mg total) by mouth daily. Active vitamin C (ASCORBIC ACID) 250 MG tablet Take 2 tablets (500 mg total) by mouth daily. Active B Complex Vitamins (VITAMIN B COMPLEX OR) Take 1 tablet by mouth daily. Active Active Problems Problem Noted Date Diagnosed Date Morbid obesity (CMS/HCC HHS/HCC) 05/12/2023 Social History Tobacco Use Types Packs/Day Years Used Date Smoking Tobacco: Never Smokeless Tobacco: Never Alcohol Use Standard Drinks/Week Comments Not Currently 0 (1 standard drink = 0.6 oz pur e alcohol) Sex and Gender Information Value Date Recorded Sex Assigned at Not on file Legal Sex Male 9:33 AM CDT Gender Identity Not on file Sexual Orientation Not on file Last Filed Vital Signs Vital Sign Reading Time Taken Comments Blood Pressure 131/74 05/13/2023 7:00 AM CDT Pulse 54 05/13/2023 7:00 AM CDT Temperature 36.8 ??C (98.2 ??F) 05/13/2023 7:00 AM CD T Respiratory Rate 18 05/13/2023 7:00 AM CDT Oxygen Saturation 98% 05/13/2023 7:00 AM CDT Inhaled Oxygen Concentration - - Weight 184.6 kg (407 lb) 05/12/2023 6:25 AM CDT Height 185.4 cm (6' 1 ) 05/12/2023 6:25 AM CDT Body Mass Index 53.7 05/12/2023 6:25 AM CDT Plan of Treatment Health Maintenance Due Date Last Done Comments Colorectal Cancer Screening Colonoscopy (10 Years) 1975 Annual Physical 1978 Hepatitis C 1993 DTaP, Tdap and Td Vaccines ( 1 - Tdap) 1994 Hepatitis B Vaccines (1 of 3 - 19+ 3-dose series) 1994 COVID-19 Vaccine (2023-2 5 season) 2024 Influenza Adult (#1) 2024 Meningococcal B Vaccine Aged Out No l onger eligible based on patient's age to complete this topic Meningococcal Vaccine Aged Out No nessa viviane eligible based on patient's age to complete this topic Pneumococcal Vaccine: Pediat rics (0 to 5 Years) and At-Risk Patients (6 to 64 Years) Aged Out No longer eligible b ased on patient's age to complete this topic RSV Immunizations Under 20 Months Aged Out No longer eligible based on patient's age to complete this topic Insurance [facility] Advance Directives * Full Code (Latest Code Status on File) Date Activated Date Inactivated Comments 05/12/2023 10:40 AM 05/13/2023 12:03 PM Care Teams Answering Service Operator Relationship Specialty Start Date End Date Mehrdad English DO [address] [place] [address] PCP - General FAMILY PRACTICE 05/12/23
--- OUTSIDE RECORDS SUMMARY | 2024-11-27 16:11 | XMS_ITS ---
Author Organization [facility] Address [address] [place], [place] [address] Care Team Providers Care Manual Arts Teacher Name Role Phone Sinacoleman Nya Unavailable Unavailable MADDIE COLUMBA Unavailable [phone] Allergies No Known Allergies REASON FOR VISIT growth L ft little toe Encounters Encounter Location Date Provider Diagnosis [facility] [place] [address] [place], [place] [id number] 06/06/2024 COLUMBA PERKINS Unspecified atherosclerosis of [place] arteries of extremities, bilateral legs I70.203 ; [...] Notes Treatment Clinical Notes Section Notes 06/06/2024 Unspecified atherosclerosis of [place] arteries of extremities, bilateral legs (ICD-10 - I70.203) Patient educated on risks and aggravating factors of PVD, including conservative treatment options such as a diet and exercise regimen to aid in slowing progression of vascular disease 06/06/2024 Tinea unguium (ICD-10 - B35.1) Aseptic [...] regarding both OTC and prescription treatments. 06/06/2024 Acquired keratosis [keratoderma] palmaris et plantaris [...] toe(s) (ICD-10 - M79.675) Plan Of Treatment Treatment Notes Assessment Notes Unspecified atherosclerosis of [place] arteries of extremities, bilateral legs Patient educated on risks and aggravating factors of PVD, including conservative treatment options such as a diet and exercise regimen to aid in slowing progression of vascular disease Tinea unguium Aseptic debridement of elongated thickened nails x [...] educated regarding both OTC and prescription treatments. Acquired keratosis [keratode rma] palmaris et plantaris Pre-ulcerative keratoderma debrided sharply down to the level of healthy tissue using a 15 blade. After removal of overlying extensive hyperkeratosis, healthy tissue was noted and care was taken to assure that no undermining or probing was present. It should be noted that no probing was noted and no infection or drainage was noted. Other hammer toe(s) (acquired), right fo ot The patient was educated regarding how to [...] were discussed, but conservative options were emphasized. Flat foot [pes planus] (acqu ired), left foot Patient educated on etiology and treatment options [...] use and effect. All questions were answered. Next Appt Details Follow Up: 3 Months, Reason: Progress Notes * MAC JOEOB:1975 (49 yo M)Acc No.[id number]:06/06/2024 Progress Notes Patient:?EMMANUEL JOE Provider:?COLUMBA PERKINS :1975???Age:49 Y???Sex:Male Walt e:06/06/2024 Address:[address] [place], [place] [address] Subjective: * Chief Complaints: * ???1. growth L ft little toe . * HPI: ???HPI:?New Complaint?Patient presents for a new patient consultation., Patient complains of an issue to the left fifth digit. Patient states that it feels like walking on a rock on the lateral side. , MA: mca.? * ROS:?General / Constitutional:?Patient denies?weakness.?Respiratory:?Patient denies?chronic cough, shortness of breath, sputum production.?Cardiovascular:?Patient denies?chest pain, history of [place], irregular heartbeat.?Musculoskeletal:?Patient complains of?flat feet/ planus, hammertoes.?Peripheral Vascular:?Patient denies?blanching of skin, cold extremities, decreased sensation in extremities.?Skin:?Patient complains of?fungal nails, nail changes, calluses and corns.?Neurologic:?Patient denies?dizziness, gait abnormality, headache.? * Medical History:?Asthma - mi ld intermittent, Respiratory disease, Arthritis, Gout, Sleep apnea, Thyroid Disease, Angina, High blood pressure. * Allergies:?N.K.D.A. Objective: * Examination: ???Physical Examination: ???Vascular: Dorsalis Pedis pulse noted at 1/4 right foot and 1/4 left foot and Posterior Tibial pulse noted at 1/4 right foot and 1/4 left foot, Capillary refill times noted to be less than three seconds x ten, Temperature gradient noted to be warm to cool to bilateral foot, pedal hair present to bilateral foot and no varicosities are noted ?Dermatologic: there are no open lesions, no signs of active clinical infection, no erythema noted, no ecchymoses, nails are elongated thickened and dystrophic with subungual debris x ten, hyperkeratotic tissue plantar fifth metatarsal head bilateral foot ?Musculoskeletal: there is pain to palpation onto nail plate x ten, no calf pain noted bilaterally, arch height noted at 2/5 non-weight bearing bilaterally, first metatarsophalangeal joint range of motion 30 deg non-weight bearing bilaterally, flexible fifth digit hammer toe deformity noted to bilateral foot reducible with kelikian push up test, pain to palpation sub fifth metatarsal head hyperkeratotic tissue bilateral foot ?Neurology: protective sensation intact to light touch bilateral digits one through five, vibratory sensation intact to first metatarsophalangeal joint bilaterally. Assessment: * Assessment: 1.?Tinea unguium - B35.1 (Pr imary)?2.?Unspecified atherosclerosis of [place] arteries of extremities, bilateral legs - I70.203?3.?Acquired keratosis [keratoderma] palmaris et plantaris - L85.1?4.?Other hammer toe(s) (acquired), right foot - M20.41?5.?Other hammer toe(s) (acquired), left foot - M20.42?6.?Flat foot [pes planus] (acquired), left foot - M21.42?7.?Flat foot [pes planus] (acquired), right foot - M21.41?8.?Pain in right toe(s) - M79.674?9.?Pain in left toe(s) - M79.675? Plan: * Treatment: 2.?Unspecified atheroscleros is of [place] arteries of extremities, bilateral legs? Notes: Patient educated on risks and aggravating factors of PVD, including conservative treatment options such as a diet and exercise regimen to aid in slowing progression of vascular disease ?? 3.?Acquired keratosis [kerat oderma] palmaris et plantaris? Notes: Pre-ulcerative keratoderma debrided sharply down to the level of healthy tissue using a 15 blade. After removal of overlying extensive hyperkeratosis, healthy tissue was noted and care was taken to assure that no undermining or probing was present. It should be noted that no probing was noted and no infection or drainage was noted. ?? 4.?Other hammer toe(s) (acqu ired), right foot? Notes: The patient was educated regarding how to [...] were discussed, but conservative options were emphasized. ?? 5.?Flat foot [pes planus] (a cquired), left foot? Notes: Patient educated on etiology and treatment options [...] use and effect. All questions were answered. ?? * Follow Up:?3 Months * Billing Information: * Visit Code:? 38363 Office Visit, New Pt., Level 3. Modifiers: 25 * Procedure Codes:? * Sign off status: Completed true * Provider:NUSRAT PERKINS Date:?06/06/2024 Generated for Brent chakraborty/Pooja/Annie on:?11/27/2024 04:11 PM FLOATLIGHT LOADING SUPERVISOR History and Physical Notes * HPI (History of Present Illness) Category Sub-Category Detail Notes Category Not es HPI New Complaint Patient presents for a new patient consultation., Patient complains of an issue to the left fifth digit. Patient states that it feels like walking on a rock on the lateral side. , MA: tanya Examination Category Sub-Category Detail Notes Category Not es Physical Examination Vascular: Dorsalis Pedis pulse noted at 1/4 right foot and 1/4 left foot and Posterior Tibial pulse noted at 1/4 right foot and 1/4 left foot, Capillary refill times noted to be less than three seconds x ten, Temperature gradient noted to be warm to cool to bilateral foot, pedal hair present to bilateral foot and no varicosities are noted Dermatologic: there are no open lesions, no signs of active clinical infection, no erythema noted, no ecchymoses, nails are elongated thickened and dystrophic with subungual debris x ten, hyperkeratotic tissue plantar fifth metatarsal head bilateral foot Musculoskeletal: there is pain to palpation onto nail plate x ten, no calf pain noted bilaterally, arch height noted at 2/5 non-weight bearing bilaterally, first metatarsophalangeal joint range of motion 30 deg non-weight bearing bilaterally, flexible fifth digit hammer toe deformity noted to bilateral foot reducible with kelikian push up test, pain to palpation sub fifth metatarsal head hyperkeratotic tissue bilateral foot Neurology: protective sensation intact to light touch bilateral digits one through five, vibratory sensation intact to first metatarsophalangeal joint bilaterally
[2024-11-27 16:24] LABS: Basophils Absolute Auto 0.01 K/mm3 (0.00-0.10); Basophils Percent Auto 0.2 % (0.0-1.0); Eosinophils Absolute Auto 0.07 K/mm3 (0.02-0.50); Eosinophils Percent Auto 1.4 % (1.0-6.0); Hematocrit 38.3 % (40.0-54.0); Hemoglobin 12.9 g/dL (14.0-18.0); Immature Granulocyte Absolute 0.02 K/mm3 (0.00-0.00); Immature Granulocyte Percent A 0.4 % (0.0-0.0); Lymphocytes Absolute Auto 1.73 K/mm3 (1.10-4.50); Lymphocytes Percent Auto 35.4 % (18.0-42.0); Mean Corpuscular HGB Conc 33.7 g/dL (32-36); Mean Corpuscular Hemoglobin 30.4 pg (27.0-31.0); Mean Corpuscular Volume 90.1 fL (78.0-102.0); Mean Platelet Volume 8.8 fl (8.7-11.0); Monocytes Absolute Auto 0.37 K/mm3 (0.10-0.90); Monocytes Percent Auto 7.6 % (2.0-11.0); Neutrophils Absolute Auto 2.69 K/mm3 (1.70-7.20); Platelet Count Result 214 K/mm3 (150-420); Red Blood Count 4.25 M/mm3 (4.70-6.10); Red Cell Distribution Width 13.1 % (11.6-14.4); White Blood Count 4.9 K/mm3 (4.8-10.8)
--- OUTSIDE RECORDS SUMMARY | 2024-11-27 16:37 | XMS_ITS | Clinical Summary ---
Author Organization [facility] Address [address] [place] [address]. [place] [address] [place] [address] Care Team Providers Care Blueprint Tracer Name Role Phone Mehrdad English DO Primary Care Provider [phone] Allergies Active Allergy Reactions Criticality Noted Date [...] patient's age to complete this topic Insurance [facility] Advance Directives * Full Code (Latest Code Status on File) Date Activated Date Inactivated Comments 05/12/2023 10:40 AM 05/13/2023 12:03 PM Care Teams Blueprint Tracer Relationship Specialty Start Date End Date Mehrdad English DO [address] [place] [address] PCP - General FAMILY PRACTICE 05/12/23
[2024-11-27 16:46] LABS: Alanine Aminotransferase 22 U/L (16-63); Albumin Level 3.3 g/dL (3.4-5.0); Alkaline Phosphatase 52 U/L (46-116); Anion Gap 6 mmol/L (4-12); Aspartate Amino Transferase 14 U/L (15-37); Bilirubin,Total 0.5 mg/dL (0.00-1.00); Blood Urea Nitrogen 8 mg/dL (7-18); Calcium 8.6 mg/dL (8.5-10.1); Carbon Dioxide 30 mmol/L (21-32); Chloride 103 mmol/L (98-108); Estimated CRCL calculation 168 ml/min; Estimated Glomerular Filt Rate > 60; Glucose 98 mg/dL (70-99); NT Pro B Type Natriuretic Pept 61 pg/mL (0-125); Osmolality Calculated 286 mOsm/kg (285-295); Potassium 3.6 mmol/L (3.5-5.1); Sodium 139 mmol/L (136-145); Total Protein 6.5 g/dL (6.4-8.2)
[2024-11-27 16:47] LABS: Troponin I 4.8 ng/L (0.00-60.4)
[2024-11-27 16:49] VITALS: BP 118/78; PULSE 58; RESP 14; O2SAT 98
[2024-11-27 17:06] VITALS: RESP 18; TEMP 36.8; O2SAT 97
== END 2024-11-27 17:06 | disposition home or self-care (01) ==
PROVIDERS: Emergency Provider Internal Medicine Critical Care Medicine; PCP Nurse Practitioner Family
DX: R07.89 Other chest pain (principal); J44.1 Chronic obstructive pulmonary disease with (acute) exacerbation; I10 Essential (primary) hypertension; E78.5 Hyperlipidemia, unspecified; J44.9 Chronic obstructive pulmonary disease, unspecified; E11.9 Type 2 diabetes mellitus without complications; G47.33 Obstructive sleep apnea (adult) (pediatric); K75.81 Nonalcoholic steatohepatitis (NASH); Z98.84 Bariatric surgery status; Z79.51 Long term (current) use of inhaled steroids; E66.01 Morbid (severe) obesity due to excess calories; Z68.42 Body mass index [BMI] 45.0-49.9, adult
CPT/HCPCS: 36415; 71045; 80053; 83880; 84484; 85025; 93005; 99284

== ENCOUNTER 2024-12-11 16:17 | Outpatient (CLI) | payer OTHER, SELFPAY ==
--- OUTSIDE RECORDS SUMMARY | 2024-12-11 16:21 | XMS_ITS | Patient Health Record ---
Author Organization [facility] Address [address] [place], [place] [address] Care Team Providers Care Cheese Sprayer Name Role Phone Nya Rivera Unavailable Unavailable ALBANIACOLUMBA SALAMANCA Unavailable [phone] Allergies No Known Allergies Reason For Referral No Information Encounters Encounter Location Date Provider Diagnosis [facility] [place] [address] [place], [place] [id number] 06/06/2024 COLUMBAHUMERA GOMEZAUGUSTO Unspecified atherosclerosis of [place] arteries of extremities, bilateral legs I70.203 ; [...] and prescription treatments. 06/06/2024 Unspecified atherosclerosis of [place] arteries of extremities, bilateral legs (ICD-10 - [...] Insured Coverage Start Date Coverage End Date [facility] ([facility] ATTN CLAIMS [address] [place] [address] [id number] EMMANUEL JOE Self - patient is the insured Medical (General) History Medical History History ICD Code asthma - mild intermittent Respiratory disease Arthritis Gout Sleep apnea Thyroid Disease angina high blood pressure
--- OUTSIDE RECORDS SUMMARY | 2024-12-11 16:21 | XMS_ITS ---
Author Organization [facility] Address [address] [place], [place] [address] Care Team Providers Care Can Piler Name Role Phone Sinacoleman Nya Unavailable Unavailable MADDIE COLUMBA Unavailable [phone] Allergies No Known Allergies REASON FOR VISIT growth L ft little toe Encounters Encounter Location Date Provider Diagnosis [facility] [place] [address] [place], [place] [id number] 06/06/2024 COLUMBA PERKINS Unspecified atherosclerosis of [place] arteries of extremities, bilateral legs I70.203 ; [...] Notes Section Notes 06/06/2024 Unspecified atherosclerosis of [place] arteries of extremities, bilateral legs (ICD-10 - [...] Treatment Notes Assessment Notes Unspecified atherosclerosis of [place] arteries of extremities, bilateral legs Patient educated [...] Up: 3 Months, Reason: Progress Notes * MALACHI JEOMANDOB:1975 (49 yo M)Acc No.[id number]:06/06/2024 Progress Notes Patient: EMMANUEL HYATT Provider: Chiara PERKINS :1975 A ge:49 Y S ex:Male Date:06/06/2024 Address:[address] [place] [address] Subjective: * Chief Complaints: * 1 . growth L ft little toe. * HPI: H PI: New Complaint P atient presents for a new patient consultation., Patient complains of an issue to the left fifth digit. Patient states that it feels like walking on a rock on the lateral side. , MA: [facility]. * ROS: G eneral / Constitutional: Patient denies w eakness. R espiratory: Patient denies c hronic cough, shortness of breath, sputum production. C ardiovascular: Patient denies c hest pain, history of [place], irregular heartbeat. M usculoskeletal: Patient complains of f lat feet/ planus, hammertoes. ? P eripheral Vascular: Patient denies b lanching of skin, cold extremities, decreased sensation in extremities. S kin: Patient complains of f ungal nails, nail changes, calluses and corns. N eurologic: Patient denies d izziness, gait abnormality, headache. * Medical History: A sthma - mild intermittent, Respiratory disease, Arthritis, Gout, Sleep apnea, Thyroid Disease, Angina, High blood pressure. * Allergies: N .K.D.A. Objective: * Examination: P hysical Examination: V ascular: Dorsalis Pedis pulse noted at 1/4 right [...] first metatarsophalangeal joint bilaterally. Assessment: * Assessment: 1. T inea unguium - B35.1 (Primary) 2 . U nspecified atherosclerosis of [place] arteries of extremities, bilateral legs - I70.203 3 . A cquired keratosis [keratoderma] palmaris et plantaris - L85.1 4 . O ther hammer toe(s) (acquired), right foot - M20.41 5 . O ther hammer toe(s) (acquired), left foot - M20.42 6 . F lat foot [pes planus] (acquired), left foot - M21.42 7 . F lat foot [pes planus] (acquired), right foot - M21.41 8 . P ain in right toe(s) - M79.674 9 . P ain in left toe(s) - M79.675 Plan: * Treatment: 2. U nspecified atherosclerosis of [place] arteries of extremities, bilateral legs Notes: Patient educated on risks and aggravating factors of PVD, including conservative treatment options such as a diet and exercise regimen to aid in slowing progression of vascular disease ? 3. A cquired keratosis [keratoderma] palmaris et plantaris Notes: Pre-ulcerative keratoderma debrided sharply down to the level of healthy tissue using a 15 blade. After removal of overlying extensive hyperkeratosis, healthy tissue was noted and care was taken to assure that no undermining or probing was present. It should be noted that no probing was noted and no infection or drainage was noted. 4. O ther hammer toe(s) (acquired), right foot Notes: The patient was educated regarding how [...] were discussed, but conservative options were emphasized. 5. F lat foot [pes planus] (acquired), left foot Notes: Patient educated on etiology and treatment [...] use and effect. All questions were answered. * Follow Up: 3 Months * Billing Information: * Visit Code: 62911 Office Visit, New Pt., Level 3. Modifiers: 25 * Procedure Codes: * Sign off status: Completed true * Provider: Chiara PERKINS Date: 0 06/06/2024 Generated for Brent chakraborty/Pooja/Annie on: 0 12/11/2024 04:20 PM CLINICAL TRANSPLANT COORDINATOR History and Physical Notes * HPI (History of Present Illness) Category Sub-Category Detail Notes Category Not es HPI New Complaint Patient presents for a new patient consultation., Patient complains of an issue to the left fifth digit. Patient states that it feels like walking on a rock on the lateral side. , MA: mca Examination Category Sub-Category Detail Notes Category Not [...]
--- OUTSIDE RECORDS SUMMARY | 2024-12-11 16:21 | XMS_ITS | Clinical Summary ---
Author Organization [facility] Address [address] [place] [address] Care Team Providers Care Applications Development Analyst Name Role Phone Mehrdad English DO Primary Care Provider [phone] Allergies Active Allergy Reactions Criticality Noted Date [...] Problem Noted Date Diagnosed Date Morbid obesity ([facility]) 05/12/2023 Social History Tobacco Use Types Packs/Day [...] 54 05/13/2023 7:00 AM CDT Temperature 36.8 C (98.2 F) 05/13/2023 7:00 AM CDT Respiratory Rate 18 05/13/2023 7:00 AM CDT [...] patient's age to complete this topic Insurance [facility] Advance Directives * Full Code (Latest Code Status on File) Date Activated Date Inactivated Comments 05/12/2023 10:40 AM 05/13/2023 12:03 PM Care Teams Applications Development Analyst Relationship Specialty Start Date End Date Mehrdad English DO [address] [place] [address] PCP - General FAMILY PRACTICE 05/12/23
[2024-12-11 17:03] LABS: NT Pro B Type Natriuretic Pept 27 pg/mL (0-125); Thyroid Stimulating Hormone 4.91 uIU/mL (0.36-3.74)
[2024-12-13 02:53] LABS: Vitamin D 25 Hydroxy 42 ng/mL (30-100)
== END 2024-12-11 16:18 | disposition home or self-care (01) ==
LOC: CHSLAB 16:19
PROVIDERS: PCP Nurse Practitioner Family; Visit Provider Nurse Practitioner Family
DX: I10 Essential (primary) hypertension (principal); R07.89 Other chest pain; E03.9 Hypothyroidism, unspecified; R53.83 Other fatigue
CPT/HCPCS: 36415; 82306; 83880; 84443

== ENCOUNTER 2025-01-21 15:17 | Outpatient (CLI) | payer OTHER, SELFPAY ==
[2025-01-21 15:43] LABS: Basophils Absolute Auto 0.02 K/mm3 (0.00-0.10); Basophils Percent Auto 0.3 % (0.0-1.0); Eosinophils Absolute Auto 0.09 K/mm3 (0.02-0.50); Eosinophils Percent Auto 1.2 % (1.0-6.0); Hematocrit 42.9 % (40.0-54.0); Hemoglobin 14.2 g/dL (14.0-18.0); Immature Granulocyte Absolute 0.03 K/mm3 (0.00-0.00); Immature Granulocyte Percent A 0.4 % (0.0-0.0); Lymphocytes Absolute Auto 1.98 K/mm3 (1.10-4.50); Lymphocytes Percent Auto 27.1 % (18.0-42.0); Mean Corpuscular HGB Conc 33.1 g/dL (32-36); Mean Corpuscular Hemoglobin 29.8 pg (27.0-31.0); Mean Corpuscular Volume 89.9 fL (78.0-102.0); Mean Platelet Volume 9.3 fl (8.7-11.0); Monocytes Absolute Auto 0.52 K/mm3 (0.10-0.90); Monocytes Percent Auto 7.1 % (2.0-11.0); Neutrophils Absolute Auto 4.66 K/mm3 (1.70-7.20); Neutrophils Percent Auto 63.9 % (50.0-70.0); Platelet Count Result 254 K/mm3 (150-420); Red Blood Count 4.77 M/mm3 (4.70-6.10); Red Cell Distribution Width 12.7 % (11.6-14.4); White Blood Count 7.3 K/mm3 (4.8-10.8)
[2025-01-21 16:44] LABS: Alanine Aminotransferase 26 U/L (16-63); Alkaline Phosphatase 78 U/L (46-116); Anion Gap 9 mmol/L (4-12); Aspartate Amino Transferase 18 U/L (15-37); Bilirubin,Total 0.4 mg/dL (0.00-1.00); Blood Urea Nitrogen 20 mg/dL (7-18); Calcium 9.4 mg/dL (8.5-10.1); Carbon Dioxide 29 mmol/L (21-32); Chloride 102 mmol/L (98-108); Estimated Glomerular Filt Rate > 60; Glucose 96 mg/dL (70-99); Osmolality Calculated 292 mOsm/kg (285-295); Potassium 4.6 mmol/L (3.5-5.1); Sodium 140 mmol/L (136-145); Total Protein 7.5 g/dL (6.4-8.2)
[2025-01-21 17:20] LABS: Folic Acid 8.1 ng/mL (8.6->20); Vitamin B12 533 pg/mL (193-986)
[2025-01-21 17:21] LABS: CRP < 0.5 mg/dL (0.0-0.9); Prostate Specific Antigen < 0.1 ng/mL (< OR = 4.0)
--- OUTSIDE RECORDS SUMMARY | 2025-01-21 17:53 | XMS_ITS | Clinical Summary ---
Author Organization [facility] Address [address] [place] [address] Care Team Providers Care Chain Maker Name Role Phone Mehrdad English DO Primary Care Provider [phone] Allergies Active Allergy Reactions Criticality Noted Date [...] Problem Noted Date Diagnosed Date Morbid obesity 05/12/2023 Social History Tobacco Use Types Packs/Day [...] patient's age to complete this topic Insurance Advance Directives * Full Code (Latest Code Status on File) Date Activated Date Inactivated Comments 05/12/2023 10:40 AM 05/13/2023 12:03 PM Care Teams Chain Maker Relationship Specialty Start Date End Date Mehrdad English DO [address] [place] [address] PCP - General FAMILY PRACTICE 05/12/23
== END 2025-01-21 15:18 | disposition home or self-care (01) ==
PROVIDERS: PCP Family Medicine; Visit Provider Family Medicine
DX: R35.1 Nocturia (principal); R63.4 Abnormal weight loss; E53.8 Deficiency of other specified B group vitamins
CPT/HCPCS: 36415; 80053; 82607; 82746; 84153; 85025; 86140; G0103

== ENCOUNTER 2025-01-22 06:09 | Outpatient (CLI) | payer OTHER, SELFPAY ==
--- OUTSIDE RECORDS SUMMARY | 2025-01-22 06:12 | XMS_ITS | Patient Health Record ---
Author Organization [facility] Address [address] [place], [place] [address] Care Team Providers Care Fleece Tier Name Role Phone Nya Rivera Unavailable Unavailable ALBANIACOLUMBA SALAMANCA Unavailable [phone] Allergies No Known Allergies Reason For Referral No Information Encounters Encounter Location Date Provider Diagnosis [facility] [place] [address] [place], [place] [phone] 06/06/2024 COLUMBAHUMERA GOMEZAUGUSTO Unspecified atherosclerosis of [place] arteries of extremities, bilateral legs I70.203 ; [...] and prescription treatments. 06/06/2024 Unspecified atherosclerosis of [place] arteries of extremities, bilateral legs (ICD-10 - [...] Insured Coverage Start Date Coverage End Date [facility] ([facility]) ATTN CLAIMS [address] [place] [address] [id number] EMMANUEL JOE Self - patient is the insured Medical (General) History Medical History History ICD Code asthma - mild intermittent Respiratory disease Arthritis Gout Sleep apnea Thyroid Disease angina high blood pressure
--- OUTSIDE RECORDS SUMMARY | 2025-01-22 06:12 | XMS_ITS | Clinical Summary ---
Author Organization [facility] Address [address] [place] [address] Care Team Providers Care Increment Manager Name Role Phone Mehrdad English DO Primary Care Provider [phone] Allergies Active Allergy Reactions Criticality Noted Date [...] 10:40 AM 05/13/2023 12:03 PM Care Teams Increment Manager Relationship Specialty Start Date End Date Mehrdad English DO [address] [place] [address] PCP - General FAMILY PRACTICE 05/12/23
--- OUTSIDE RECORDS SUMMARY | 2025-01-22 06:12 | XMS_ITS ---
Author Organization [facility] Address [address] [place], [place] [address] Care Team Providers Care Marketing Operations Manager Name Role Phone Sinacoleman Nya Unavailable Unavailable MADDIE COLUMBA Unavailable [phone] Allergies No Known Allergies REASON FOR VISIT growth L ft little toe Encounters Encounter Location Date Provider Diagnosis [facility] [place] [address] [place], [place] [phone] 06/06/2024 COLUMBA PERKINS Unspecified atherosclerosis of [place] arteries of extremities, bilateral legs I70.203 ; [...] Notes Section Notes 06/06/2024 Unspecified atherosclerosis of [place] arteries of extremities, bilateral legs (ICD-10 - [...] Treatment Notes Assessment Notes Unspecified atherosclerosis of [place] arteries of extremities, bilateral legs Patient educated [...] 3 Months, Reason: Progress Notes * MALACHI JOEMANDOB:1975 (49 yo M)Acc No.[id number]:06/06/2024 Progress Notes Patient: EMMANUEL HYATT Provider: Chiara PERKINS :1975 A ge:49 Y S ex:Male Date:06/06/2024 Address:[address] [place] [address] Subjective: * Chief Complaints: * 1 . growth L ft little toe. * HPI: H PI: New Complaint P atient presents for a new patient consultation., Patient complains of an issue to the left fifth digit. Patient states that it feels like walking on a rock on the lateral side. , MA: [facility]. * ROS: G eneral / Constitutional: Patient denies w eakness. R espiratory: Patient denies c hronic cough, shortness of breath, sputum production. C ardiovascular: Patient denies c hest pain, history of [place], irregular heartbeat. M usculoskeletal: Patient complains of [...] (Primary) 2 . U nspecified atherosclerosis of [place] arteries of extremities, bilateral legs - I70.203 [...] * Treatment: 2. U nspecified atherosclerosis of [place] arteries of extremities, bilateral legs Notes: Patient [...] Months * Billing Information: * Visit Code: 72433 Office Visit, New Pt., Level 3. Modifiers: 25 * Procedure Codes: * Sign off status: Completed true * Provider: Chiara PERKINS Date: 0 06/06/2024 Generated for Brent chakraborty/Pooja/Annie on: 0 01/22/2025 06:12 AM CDT History and Physical Notes * HPI (History [...]
[2025-01-22 06:37] LABS: Occult Blood Negative (Negative)
== END 2025-01-22 06:10 | disposition home or self-care (01) ==
LOC: CHSLAB 06:10
PROVIDERS: PCP Family Medicine; Visit Provider Family Medicine
DX: R19.7 Diarrhea, unspecified (principal); R63.4 Abnormal weight loss
CPT/HCPCS: 82272

== ENCOUNTER 2025-03-25 07:28 | Outpatient (CLI) | payer OTHER, SELFPAY ==
--- OUTSIDE RECORDS SUMMARY | 2025-03-25 07:31 | XMS_ITS | Patient Health Record ---
Author Organization [facility] Address [address] [place], [place] [address] Care Team Providers Care Independent Living Advisor Name Role Phone Nya Rivera Unavailable Unavailable ALBANIACOLUMBA SALAMANCA Unavailable [phone] Allergies No Known Allergies Reason For Referral No Information Encounters Encounter Location Date Provider Diagnosis [facility] [place] [address] [place], [place] [id number] 06/06/2024 COLUMBAHUMERA GOMEZAUGUSTO Unspecified atherosclerosis of [place] arteries of extremities, bilateral legs I70.203 ; [...] and prescription treatments. 06/06/2024 Unspecified atherosclerosis of [place] arteries of extremities, bilateral legs (ICD-10 - [...] Insured Coverage Start Date Coverage End Date [facility] ([facility]) ATTN CLAIMS [address] [place] [address] [id number] EMMANUEL JOE Self - patient is the insured Medical (General) History Medical History History ICD Code asthma - mild intermittent Respiratory disease Arthritis Gout Sleep apnea Thyroid Disease angina high blood pressure
== END 2025-03-25 07:29 | disposition home or self-care (01) ==
PROVIDERS: PCP Nurse Practitioner Family; Visit Provider Nurse Practitioner Family
DX: E03.9 Hypothyroidism, unspecified (principal)
CPT/HCPCS: 36415; 84443

== ENCOUNTER 2025-05-05 06:50 | Outpatient (CLI) | payer OTHER, SELFPAY ==
--- OUTSIDE RECORDS SUMMARY | 2025-05-05 06:54 | XMS_ITS | Clinical Summary ---
Author Organization [facility] Address [address] [place] [address] Care Team Providers Care Trial Examiner Name Role Phone Mehrdad English DO Primary Care Provider [phone] Allergies Active Allergy Reactions Criticality Noted Date [...] 6:25 AM CDT Height 185.4 cm (6' 1) 05/12/2023 6:25 AM CDT Body Mass Index 53.7 05/12/2023 6:25 AM CDT Plan of Treatment Health Maintenance Due Date Last Done Comments Colorectal Cancer Screening Colonoscopy (10 Years) 1975 Annual Physical 1978 Hepatitis C 1993 DTaP, Tdap and Td Vaccines ( 1 - Tdap) 1994 Hepatitis B Vaccines (1 of 3 - 19+ 3-dose series) 1994 COVID-19 Vaccine ( - 2023-2 5 season) 2024 Pneumococcal Vaccine: 50+ Ye ars (1 of 1 - PCV) 2025 Zoster Vaccines (1 of 2) 2025 Meningococcal B Vaccine Aged Out No l onger eligible based on patient's age to complete this topic Meningococcal Vaccine Aged Out No nessa viviane eligible based on patient's age to complete this topic RSV Immunizations Under 20 Months Aged Out No longer eligible based on patient's age to complete this topic Insurance [facility] Advance Directives * Full Code (Latest Code Status on File) Date Activated Date Inactivated Comments 05/12/2023 10:40 AM 05/13/2023 12:03 PM Care Teams Trial Examiner Relationship Specialty Start Date End Date Mehrdad English DO [address] [place] [address] PCP - General FAMILY PRACTICE 05/12/23
--- OUTSIDE RECORDS SUMMARY | 2025-05-05 06:54 | XMS_ITS | Patient Health Record ---
Author Organization [facility] Address [address] [place], [place] [id number] Care Team Providers Care Instructor Traffic Safety Name Role Phone Nya Rivera Unavailable Unavailable ALBANIACOLUMBA SALAMANCA Unavailable [phone] Allergies No Known Allergies Reason For Referral No Information Encounters Encounter Location Date Provider Diagnosis [facility] [address] [place], [place] [id number] 06/06/2024 COLUMBAHUMERA GOMEZAUGUSTO Unspecified atherosclerosis of [place] arteries of extremities, bilateral legs I70.203 ; [...] and prescription treatments. 06/06/2024 Unspecified atherosclerosis of [place] arteries of extremities, bilateral legs (ICD-10 - [...] Insured Coverage Start Date Coverage End Date [facility] [place] ATTN CLAIMS [address] [place] [address] [id number] EMMANUEL JOE Self - patient is the insured Medical (General) History Medical History History ICD Code asthma - mild intermittent Respiratory disease Arthritis Gout Sleep apnea Thyroid Disease angina high blood pressure
[2025-05-05 07:19] LABS: Hematocrit 39.7 % (40.0-54.0); Hemoglobin 13.0 g/dL (14.0-18.0); Immature Granulocyte Percent A 0.2 % (0.0-0.0); Lymphocytes Absolute Auto 1.48 K/mm3 (1.10-4.50); Mean Corpuscular HGB Conc 32.7 g/dL (32-36); Mean Corpuscular Hemoglobin 30.1 pg (27.0-31.0); Mean Corpuscular Volume 91.9 fL (78.0-102.0); Nucleated Red Blood Cells Absolute Auto 0.00 K/mm3 (0.00-0.00); Nucleated Red Blood Cells Perc 0.0 % (0-0.0); Platelet Count Result 224 K/mm3 (150-420); Red Blood Count 4.32 M/mm3 (4.70-6.10); White Blood Count 5.0 K/mm3 (4.8-10.8)
[2025-05-05 07:59] LABS: Hemoglobin A1C 4.9 % (<5.7)
[2025-05-05 08:10] LABS: Alanine Aminotransferase 14 U/L (6-50); Albumin Level 4.0 g/dL (3.5-5.1); Alkaline Phosphatase 53 U/L (38-126); Anion Gap 4 mmol/L (4-12); Aspartate Amino Transferase 24 U/L (17-59); Bilirubin,Total 0.6 mg/dL (0.2-1.3); Blood Urea Nitrogen 13 mg/dL (9-20); Calcium 8.9 mg/dL (8.4-10.2); Carbon Dioxide 28 mmol/L (22-30); Chloride 105 mmol/L (98-107); Cholesterol 196 mg/dL (0-200); Estimated Glomerular Filt Rate > 60; Glucose 89 mg/dL (65-110); HDL Direct 39 mg/dL; Iron 68 ug/dL (49-181); Magnesium 1.7 mg/dL (1.6-2.3); Osmolality Calculated 283 mOsm/kg (285-295); Potassium 4.3 mmol/L (3.4-5.0); Sodium 137 mmol/L (137-145); Total Protein 6.6 g/dL (6.3-8.2); Triglycerides 101 mg/dL (<150)
[2025-05-05 08:27] LABS: Free T4 Free Thyroxine 1.41 ng/dL (0.78-2.19)
[2025-05-05 08:40] LABS: Thyroid Stimulating Hormone 2.300 uIU/mL (0.465-4.680)
[2025-05-05 09:01] LABS: Vitamin B12 556.0 pg/mL (239-931)
== END 2025-05-05 06:51 | disposition home or self-care (01) ==
PROVIDERS: Nurse Practitioner Family; PCP Nurse Practitioner Family; Visit Provider Internal Medicine Endocrinology, Diabetes & Metabolism
DX: I10 Essential (primary) hypertension (principal); K76.0 Fatty (change of) liver, not elsewhere classified; E11.69 Type 2 diabetes mellitus with other specified complication; E78.1 Pure hyperglyceridemia; E53.8 Deficiency of other specified B group vitamins; D64.9 Anemia, unspecified; R53.83 Other fatigue; Z13.6 Encounter for screening for cardiovascular disorders; E78.5 Hyperlipidemia, unspecified; Z79.899 Other long term (current) drug therapy; E55.9 Vitamin D deficiency, unspecified; E03.9 Hypothyroidism, unspecified; E16.2 Hypoglycemia, unspecified
CPT/HCPCS: 36415; 80053; 80061; 82024; 82306; 82533; 82607; 83036; 83540; 83735; 84402; 84403; 84439; 84443; 85025

== ENCOUNTER 2025-06-24 18:48 | Emergency (ER) | payer OTHER, SELFPAY ==
--- NOTE | ~2025-06-24 | XR_ITS ---
EXAMINATION: XR ankle LT min 3V, XR foot LT min 3V DATE: 06/24/2025 19:22 INDICATION: Dorsal left foot pain TECHNIQUE: 1. Anteroposterior, mortise, additional oblique and lateral view of the left ankle were obtained. 2. Dorsoplantar, two oblique and lateral views of the left foot were obtained. COMPARISON: None. FINDINGS: Alignment of the foot and ankle is normal. No fracture. Mild polyarticular osteoarthritis at the first metatarsophalangeal and a few of the tarsal metatarsal and interphalangeal joints. Moderate sized plantar calcaneal spur and small Achilles calcaneal spur. No ankle joint effusion. The soft tissues are unremarkable. IMPRESSION: 1. Achilles and plantar calcaneal spurs and mild polyarticular osteoarthritis at the left fore and midfoot. No acute osseous abnormality. Reviewed, dictated and finalized at location A. IMPRESSION: 1. Achilles and plantar calcaneal spurs and mild polyarticular osteoarthritis a t the left fore and midfoot. No acute osseous abnormality.
[2025-06-24 18:48] VITALS: BP 139/77; PULSE 80; RESP 18; TEMP 36.1; O2SAT 96
--- OUTSIDE RECORDS SUMMARY | 2025-06-24 18:51 | XMS_ITS | Patient Health Record ---
Author Organization [facility] Address [address] [place], [place] [id number] Care Team Providers Care Director Pediatric Name Role Phone Nya Rivera Unavailable Unavailable Allergies No Known Allergies Reason For Referral No Information Plan Of Treatment No Information Insurance Providers Payer Name Payer Address Payer Phone Subscriber Number Group Number Insured Name Patient Relationship to Insured Coverage Start Date Coverage End Date [facility] ([facility]) ATTN CLAIMS [address] [place] [address] [id number] MALACHI JOEMAN Self - patient is the insured Medical (General) History Medical History History ICD Code asthma - mild intermittent Respiratory disease Arthritis Gout Sleep apnea Thyroid Disease angina high blood pressure
--- NOTE | 2025-06-24 18:59 | ED_ITS ---
HPI - Extremity Problem General Chief complaint: Extremity Problem,Nontraumatic Stated complaint: foot pain Time Seen by Provider: 06/24/25 18:58 Source: patient Mode of arrival: ambulatory Limitations: no limitations History of Present Illness HPI Narrative: Patient complaining of left foot pain dorsally, somehow twisted his foot at work the wrong way. He denies other injuries. Worse moving it or putting vish ght on it Related Data Allergies Allergy/AdvReac Type Severity Reaction Status Date / Time Iodinated Contrast Media Allergy Severe Hives Verified 06/24/25 18:50 Review of Systems Review of Systems: All systems reviewed & are unremarkable except as noted in HPI and below PMFSH Past Medical History Medical History BMI 60.0-69.9, adult Conjunctivitis Benign essential hypertension Primary osteoarthritis of left knee Cough Loss of taste Sore throat Chest pain Gout attack Bilateral lower extremity edema Cellulitis Left knee pain Pilonidal cyst NABILA (obstructive sleep apnea) Nonalcoholic fatty liver disease Migraine with aura and without status migrainosus Hyperlipidemia associated with type 2 diabetes mellitus Type 2 diabetes mellitus with hypertriglyceridemia COPD (chronic obstructive pulmonary disease) Hypothyroidism Surgical History Surgical History History of oral surgery (~2001) Oral Extractions History of fasciotomy (~2010) History of left heart catheterization (LHC) Social History Social History Smoking status: Never smoker Alcohol intake: never Alcohol use details: Rarely Substance use: never Substance use type: does not use Lack of Transportation: No Lack of Food: Never True Current Housing: I Have Housing Concerned About Future Housing: No Difficulty Paying Gas/Electric Bills: No Difficulty Paying for Meds: No Currently Unemployed: No Education: Master's Degree or Higher Difficulty w/ Childcare or Family Care: No Living arrangements: with family Occupation/Education: occupation Additional occupation/education comments: Paraprofessional Gender identity (if verbalized by the patient): Male Spiritual care concerns: No Agree to blood products: Yes Exam Narrative: General appearance: Well-developed, well-nourished Skin: Normal color Vascular: Normal peripheral pulses, normal capillary refill. 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 is normal as tested, no gross motor deficit Course Vital Signs Vital signs: Vital Signs Temperature 36.1 C L 06/24/25 18:48 Pulse Rate 80 06/24/25 18:48 Respiratory Rate 18 06/24/25 18:48 Blood Pressure 139/77 06/24/25 18:48 Pulse Oximetry 96 06/24/25 18:48 Oxygen Delivery Room Air 06/24/25 18:48 Temperature 36.1 C L 06/24/25 18:48 Pulse Rate 80 06/24/25 18:48 Respiratory Rate 18 06/24/25 18:48 Blood Pressure 139/77 06/24/25 18:48 Pulse Oximetry 96 06/24/25 18:48 Oxygen Delivery Room Air 06/24/25 18:48 MDM - Extremity (Nontraumatic) Imaging Data Radiologist's impression: Impressions Ankle X-Ray 06/24/25 19:31 IMPRESSION: 1. Achilles and plantar calcaneal spurs and mild polyarticular osteoarthritis at the left fore and midfoot. No acute osseous abnormality. Foot X-Ray 06/24/25 19:31 IMPRESSION: 1. Achilles and plantar calcaneal spurs and mild polyarticular osteoarthritis at the left fore and midfoot. No acute osseous abnormality. Discharge Plan Discharge Clinical Impression: Sprain of foot, left Patient Disposition: Home Condition: Stable Instructions: Foot Sprain (ED) Additional Instructions: Return if symptoms are worsening , call your family physician for appointment, take Tylenol as as needed for aches and pain, continue home medications. Keep left foot elevated, crutches as needed Patient Language: Kazakh Prescriptions: New naproxen [Naprosyn] 500 mg tablet 500 mg PO BID PRN (Reason: pain) Qty: 14 0RF No Action glucagon 3 mg/actuation spray,non-aerosol 3 mg intranasal ONCE PRN (Reason: hypoglycemia) Qty: 2 3RF Rx Instructions: as a single dose cholecalciferol (vitamin D3) 1,250 mcg (50,000 unit) capsule See Rx Instructions .ROUTE .COMPLEX Qty: 8 0RF Dose Instruction: Take 1 capsule by mouth once a week Rx Instructions: Take 1 capsule by mouth once a week albuterol sulfate 90 mcg/actuation HFA aerosol inhaler See Rx Instructions .ROUTE .COMPLEX Qty: 9 2RF Dose Instruction: INHALE 2 PUFFS BY MOUTH 4 TIMES DAILY NEEDED FOR SHORTNESS OF BREATH OR WHEEZING (USE WITH SPACER) Rx Instructions: INHALE 2 PUFFS BY MOUTH 4 TIMES DAILY NEEDED FOR SHORTNESS OF BREATH OR WHEEZING (USE WITH SPACER) gabapentin 300 mg capsule 300 mg PO QHS PRN (Reason: pain) Qty: 30 2RF levothyroxine 200 mcg tablet See Rx Instructions .ROUTE .COMPLEX Qty: 90 2RF Dose Instruction: Take 1 tablet by mouth once daily Rx Instructions: Take 1 tablet by mouth once daily acarbose 100 mg tablet 100 mg PO TID 90 Days Qty: 270 1RF (DME) FreeStyle Leo 3 Plus Sensor Device See Rx Instructions .ROUTE .COMPLEX Qty: 6 0RF Dose Instruction: USE DIRECTED Rx Instructions: USE DIRECTED valacyclovir 1 gram tablet See Rx Instructions .ROUTE .COMPLEX Qty: 21 0RF Dose Instruction: TAKE 1 TABLET BY MOUTH EVERY 8 HOURS FOR 7 DAYS Rx Instructions: TAKE 1 TABLET BY MOUTH EVERY 8 HOURS FOR 7 DAYS Follow-up/Referrals: Nya Rivera NP [Primary Care Provider, Family Practice] Stand Alone Forms: Work/School Release IP
--- NOTE | 2025-06-24 19:00 | PC.NURSE ---
Handoff report given to BARNEY Mancia.
[2025-06-24 20:10] VITALS: BP 135/75; PULSE 75; RESP 16; TEMP 36.6; O2SAT 98
== END 2025-06-24 20:10 | disposition home or self-care (01) ==
PROVIDERS: Emergency Provider Emergency Medicine; PCP Nurse Practitioner Family
DX: S93.602A Unspecified sprain of left foot, initial encounter (principal); I10 Essential (primary) hypertension; J44.9 Chronic obstructive pulmonary disease, unspecified; E78.5 Hyperlipidemia, unspecified; E11.9 Type 2 diabetes mellitus without complications; X50.0XXA Overexertion from strenuous movement or load, initial encounter
CPT/HCPCS: 73610; 73630; 99283

== ENCOUNTER 2025-07-19 07:28 | Outpatient (CLI) | payer OTHER, SELFPAY ==
--- OUTSIDE RECORDS SUMMARY | 2025-07-19 07:31 | XMS_ITS | Clinical Summary ---
Author Organization [facility] Address [address] [place] [address] Care Team Providers Care Landfill Attendant Name Role Phone Mehrdad English DO Primary Care Provider [phone] Allergies Active Allergy Reactions Criticality Noted Date [...] of 3 - 19+ 3-dose series) 1994 Pneumococcal Vaccine: 50+ Ye ars (1 of 1 - PCV) 2025 Zoster Vaccines (1 of 2) 2025 COVID-19 Vaccine (1 - 2023-2 5 season) 2025 Meningococcal B Vaccine Aged Out No l onger eligible based on patient's age to complete this topic Meningococcal Vaccine Aged Out No nessa viviane eligible based on patient's age to complete this topic RSV Immunizations Under 20 Months Aged Out No longer eligible based on patient's age to complete this topic Insurance [facility] Advance Directives * Full Code (Latest Code Status on File) Date Activated Date Inactivated Comments 05/12/2023 10:40 AM 05/13/2023 12:03 PM Care Teams Landfill Attendant Relationship Specialty Start Date End Date Mehrdad English DO [address] [place] [address] PCP - General FAMILY PRACTICE 05/12/23
--- OUTSIDE RECORDS SUMMARY | 2025-07-19 07:31 | XMS_ITS | Patient Health Record ---
Author Organization [facility] Address [address] [place], [place] [id number] Care Team Providers Care It Communications Specialist Name Role Phone Nya Rivera Unavailable Unavailable Allergies No Known Allergies Reason For Referral No Information Plan Of Treatment No Information Insurance Providers Payer Name Payer Address Payer Phone Subscriber Number Group Number Insured Name Patient Relationship to Insured Coverage Start Date Coverage End Date [facility] ATTN CLAIMS [address] [place] [address] [id number] MALACHI JOEMAN Self - patient is the insured Medical (General) History Medical History History ICD Code asthma - mild intermittent Respiratory disease Arthritis Gout Sleep apnea Thyroid Disease angina high blood pressure
[2025-07-19 08:24] LABS: Albumin Level 4.2 g/dL (3.5-5.1)
[2025-07-19 08:58] LABS: Thyroid Stimulating Hormone 0.093 uIU/mL (0.465-4.680)
[2025-07-19 08:58] LABS: Prostate Specific Antigen 0.2 ng/mL (< OR = 4.0)
[2025-07-20 07:08] LABS: LH 19.8 mIU/mL (1.7-8.6)
[2025-07-20 07:08] LABS: FSH 29.9 mIU/mL (1.5-12.4)
[2025-07-25 11:09] LABS: Free Testosterone (Direct) 4.9 pg/mL (7.2-24.0)
== END 2025-07-19 07:29 | disposition home or self-care (01) ==
LOC: CHSLAB 07:29
PROVIDERS: PCP Nurse Practitioner Family; Visit Provider Internal Medicine Endocrinology, Diabetes & Metabolism
DX: R79.89 Other specified abnormal findings of blood chemistry (principal); E03.9 Hypothyroidism, unspecified; Z12.5 Encounter for screening for malignant neoplasm of prostate
CPT/HCPCS: 36415; 82040; 83001; 83002; 84146; 84153; 84270; 84402; 84403; 84443; G0103

== ENCOUNTER 2025-08-15 13:08 | Emergency (ER) | payer OTHER, SELFPAY ==
[2025-08-15] VITALS (12 sets, daily range): BP systolic 103–128; BP diastolic 56–73; PULSE 54–75; RESP 11–24; TEMP 36.1; O2SAT 94–99
--- NOTE | ~2025-08-15 | CT_ITS ---
CHEST ABDOMEN PELVIS WITHOUT CONTRAST CLINICAL HISTORY: Onset this AM, Chest pain/ diarrhea . COMPARISON: None TECHNIQUE: Helical CT performed from thoracic inlet to symphysis pubis Coronal, sagittal reformats CT images acquired with automatic exposure control for dose reduction DLP: 1825 mGy-cm FINDINGS: CHEST- Lungs/Pleura: Emphysema mainly limited to right lower lobe. Hyperinflation. Thoracic Aorta: No aneurysm. Pulmonary arteries: Normal caliber. Heart: Unremarkable. Tracheobronchial tree: Patent. Nodes: No enlarged nodes. Bones: No acute bony abnormality. Soft tissues: Unremarkable. ABDOMEN/PELVIS- Liver: Enlarged. Gallbladder: Unremarkable. Spleen: Unremarkable. Pancreas: Unremarkable. Adrenal glands: Unremarkable. Kidneys: Right kidney- No hydronephrosis. No renal stones. Left kidney- No hydronephrosis. No renal stones. Distal esophagus/stomach: Gastric sleeve. Small bowel loops: Normal caliber and wall thickness. Colon: Normal caliber and wall thickness. Normal RLQ appendix. Nodes: No enlarged nodes. Peritoneum: No ascites. No free air. Urinary bladder: Mild wall thickening but under distended. Prostate: Unremarkable. Bones: No acute bony abnormality. Soft tissues: Unremarkable. Aorta: No aneurysm. IVC: Unremarkable. IMPRESSION: CHEST- 1. No acute findings. ABDOMEN/PELVIS- 1. No acute findings. Reviewed, dictated and finalized at location R.
--- NOTE | ~2025-08-15 | XR_ITS ---
Examination: XR chest 1V portable Clinical History: Onset this AM, Chest pain Comparison: 11/27/2024 Technique: Portable AP Findings: Heart size normal. Lungs clear. No acute bony abnormality. IMPRESSION: 1. No acute cardiopulmonary findings given portable technique. Reviewed, dictated and finalized at location R.
--- NOTE | 2025-08-15 13:19 | ECG_ITS ---
Test Date: 2025-08-15 13:22:20 Measurements Intervals [place] Rate: 61 P: 40 WA: 180 QRS: 5 QRSD: 106 T: 39 QT: 356 QTc: 361 Interpretive Statements SINUS RHYTHM VOLTAGE CRITERIA FOR LVH ST ELEVATION IN DIFFUSE LEADS- PROBABLY EARLY REPOLARIZATION ABNORMALITY BORDERLINE ECG Compared to ECG 11/27/2024 16:04:01 No significant changes Electronically Signed On 08-15-2025 15:31:27 CDT by Rogelio Patricio D.O.
--- OUTSIDE RECORDS SUMMARY | 2025-08-15 13:19 | XMS_ITS | Clinical Summary ---
Author Organization [facility] Address [address] [place] [address] Care Team Providers Care Bandmill Operator Name Role Phone Mehrdad English DO Primary Care Provider [phone] Allergies Active Allergy Reactions Criticality Noted Date [...] Vaccine (1 - 2023-2 5 season) 2025 Influenza Adult (#1) 2025 Hepatitis A Vaccines Aged Out No long er eligible based on patient's age to complete this topic Meningococcal B Vaccine Aged Out No l onger eligible based on patient's age to complete this topic Meningococcal Vaccine Aged Out No nessa viviane eligible based on patient's age to complete this topic RSV Immunizations Under 20 Months Aged Out No longer eligible based on patient's age to complete this topic Insurance [facility] Advance Directives * Full Code (Latest Code Status on File) Date Activated Date Inactivated Comments 05/12/2023 10:40 AM 05/13/2023 12:03 PM Care Teams Bandmill Operator Relationship Specialty Start Date End Date Mehrdad English DO [address] [place] [address] PCP - General FAMILY PRACTICE 05/12/23
--- OUTSIDE RECORDS SUMMARY | 2025-08-15 13:19 | XMS_ITS | Patient Health Record ---
Author Organization [facility] Address [address] [place], [place] [phone] Care Team Providers Care Residential Leasing Manager Name Role Phone Nya Rivera Unavailable Unavailable Allergies No Known Allergies Reason For Referral No Information Plan Of Treatment No Information Insurance Providers Payer Name Payer Address Payer Phone Subscriber Number Group Number Insured Name Patient Relationship to Insured Coverage Start Date Coverage End Date [facility] ([facility]) ATTN CLAIMS [address] [place] [address] [id number] EMMANUEL JOE Self - patient is the insured Medical (General) History Medical History History ICD Code asthma - mild intermittent Respiratory disease Arthritis Gout Sleep apnea Thyroid Disease angina high blood pressure
--- NOTE | 2025-08-15 13:21 | ED_ITS ---
HPI - Chest Pain General Chief Complaint: Chest Pain Stated Complaint: upper respiratory Time Seen by Provider: 08/15/25 13:21 Source: patient Mode of arrival: ambulatory Limitations: no limitations History of Present Illness HPI narrative: Patient is a 50-year-old male with sleeve gastric bypass and hypoglycemia issues here with lower chest and upper abdomen pain in a bandlike pattern for the past day. 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 No other symptoms. No nausea vomiting or diarrhea. No shortness of breath. His father had 18 heart attacks. Patient had a heart catheterization over 10 years ago that was clear. Patient also has HIDA scan a few years ago that was clear. MD complaint: chest pain (Upper abdomen) Pertinent past history: other (Diabetes 2, hypothyroid, hypoglycemia, fatty liver) Onset (ago): day(s) (1) Timing of current episode: constant Prior episodes: No Onset: during rest Pain location: epigastric and subxiphoid Pain radiation: back Severity: moderate Pain scale (0-10): 5 Quality: tightness and sharp Relieving factors: nothing Exacerbating factors: nothing Context: other (Patient having bandlike lower chest and upper abdomen pain for the past day) Associated symptoms: other (Negative) Treatment prior to arrival: none Risk Factors Coronary artery disease risk factors: diabetes Thoracic aortic dissection risk factors: none Related Data Allergies Allergy/AdvReac Type Severity Reaction Status Date / Time Iodinated Contrast Media Allergy Severe Hives Verified 08/15/25 13:55 Review of Systems 2 Review of Systems: All systems reviewed & are unremarkable except as noted in HPI and below Constitutional: Constitutional: Reports no additional constitutional complaints Eyes: Eyes: Reports no additional eye complaints ENT: Reports system reviewed and no additional complaints, except as documented Cardiovascular: Cardiovascular: Reports no additional cardiovascular complaints Respiratory: Respiratory: Reports no additional respiratory complaints Gastrointestinal: Gastrointestinal: Reports no additional gastrointestinal complaints Genitourinary: Genitourinary: Reports no additional male genitourinary complaints Musculoskeletal: Musculoskeletal: Reports no additional musculoskeletal complaints Integumentary/Breasts: Skin/Breast: Reports system reviewed and no additional complaints, except as docu Neurologic: Reports system reviewed and no additional complaints, except as documented Psychiatric: Psychiatric: Reports no additional psychiatric complaints Endocrine: Endocrine: Reports no additional endocrine complaints Hematologic/Lymphatic: Hematologic/Lymphatic: Reports no additional hematologic/lymphatic complaints Allergic/Immunologic: Allergic/Immunologic: Reports no additional allergic/immunologic complaints PMFSH Past Medical History Medical History BMI 60.0-69.9, adult Conjunctivitis Benign essential hypertension Primary osteoarthritis of left knee Cough Loss of taste Sore throat Chest pain Gout attack Bilateral lower extremity edema Cellulitis Left knee pain Pilonidal cyst NABILA (obstructive sleep apnea) Nonalcoholic fatty liver disease Migraine with aura and without status migrainosus Hyperlipidemia associated with type 2 diabetes mellitus Type 2 diabetes mellitus with hypertriglyceridemia COPD (chronic obstructive pulmonary disease) Hypothyroidism Surgical History Surgical History History of oral surgery (~2001) Oral Extractions History of fasciotomy (~2010) History of left heart catheterization (LHC) Social History Social History Smoking status: Never smoker Alcohol intake: never Alcohol use details: Rarely Substance use: never Substance use type: does not use Lack of Transportation: No Lack of Food: Never True Current Housing: I Have Housing Concerned About Future Housing: No Difficulty Paying Gas/Electric Bills: No Difficulty Paying for Meds: No Currently Unemployed: No Education: Master's Degree or Higher Difficulty w/ Childcare or Family Care: No Living arrangements: with family Occupation/Education: occupation Additional occupation/education comments: Paraprofessional Gender identity (if verbalized by the patient): Male Spiritual care concerns: No Agree to blood products: Yes Exam 2 Const: General: healthy appearing Nutritional Appearance: well nourished Orientation/consciousness: patient oriented x3 HENMT: Head: normal to inspection Ears: external ears normal F judah/Nose/Sinus: Normal external nose present Eyes: Conjunctivae: conjunctivae normal Pupils: Equal, round and reactive pupils present EOM: EOMs intact bilaterally Neck: Neck: normal visual inspection Chest: Chest palpation & inspection: normal inspection of the chest Resp: Effort & Inspection: normal respiratory effort and not labored A uscultation: clear to auscultation bilaterally and no crackles Cardio: Rate: regular rate Rhythm: regular rhythm Heart sounds: no murmurs GI: Inspection: non-distended GI Palp: Yes Soft to palpation and No Tenderness to palpation present (GI) Auscultation: normal bowel sounds : General: Yes bladder normal to palpation Back/Spine/Pelvis: Back: no CVA tenderness Skin: General skin exam: normal color Rashes: no rashes Wounds: no wounds Neuro: General: patient oriented x3, moves all extremities and no meningeal signs Extrem: General: normal to inspection, no clubbing, cyanosis or edema and no pedal edema Psych: Mental Status: mental status grossly normal Affect: normal affect Attitude: cooperative Course Vital Signs Vital signs: Vital Signs Temperature 36.1 C L 08/15/25 13:08 Pulse Rate 66 08/15/25 13:08 Respiratory Rate 16 08/15/25 13:08 Blood Pressure 128/73 08/15/25 13:08 Pulse Oximetry 96 08/15/25 13:08 Oxygen Delivery Room Air 08/15/25 13:08 Temperature 36.1 C L 08/15/25 13:08 Pulse Rate 64 08/15/25 14:34 Respiratory Rate 15 08/15/25 14:34 Blood Pressure 103/64 08/15/25 14:34 Pulse Oximetry 98 08/15/25 14:34 Oxygen Delivery Room Air 08/15/25 14:34 MDM - Chest Pain MDM Narrative Medical decision making narrative: Patient is a 50-year-old male with lower chest and upper abdomen pain for the past day. We will do a cardiac and GI workup. Lab Data Attestation: I reviewed the patient's lab results. 08/15/25 13:29 08/15/25 13:29 Labs: Lab Results 08/15/25 08/15/25 08/15/25 Range/Units 13:15 13:25 13:29 WBC 7.3 (4.8-10.8) K/mm3 RBC 4.47 L (4.70-6.10) M/mm3 Hgb 13.7 L (14.0-18.0) g/dL Hct 40.6 (40.0-54.0) % MCV 90.8 (78.0-102.0) fL MCH 30.6 (27.0-31.0) pg MCHC 33.7 (32-36) g/dL RDW 12.8 (11.6-14.4) % Plt Count 239 (150-420) K/mm3 MPV 8.7 (8.7-11.0) fl Immature Gran % (Auto) 0.1 H (0.0-0.0) % Neut % (Auto) 66.2 (50.0-70.0) % Lymph % (Auto) 25.9 (18.0-42.0) % Posey % (Auto) 6.4 (2.0-11.0) % Eos % (Auto) 1.0 (1.0-6.0) % Baso % (Auto) 0.4 (0.0-1.0) % Lymph # (Auto) 1.90 (1.10-4.50) K/mm3 Posey # (Auto) 0.47 (0.10-0.90) K/mm3 Eos # (Auto) 0.07 (0.02-0.50) K/mm3 Baso # (Auto) 0.03 (0.00-0.10) K/mm3 Abs Immat Gran (auto) 0.01 H (0.00-0.00) K/mm3 Absolute Neuts (auto) 4.85 (1.70-7.20) K/mm3 Absolute Nucleated RBC 0.00 (0.00-0.00) K/mm3 Nucleated RBC % 0.0 (0-0.0) % PT 10.6 (9.50-12.1) Seconds INR 1.0 APTT 31.0 H (23.9-30.70) Sec D-Dimer 0.43 (0.19-0.50) mg/L Sodium 139 (137-145) mmol/L Potassium 4.3 (3.4-5.0) mmol/L Chloride 101 (98-107) mmol/L Carbon Dioxide 30 (22-30) mmol/L Anion Gap 8 (4-12) mmol/L BUN 10 (9-20) mg/dL Creatinine 0.75 (0.7-1.3) mg/dL Estim Creat Clear Calc 147 ml/min Estimated GFR > 60 (59 - ) Glucose 89 (65-110) mg/dL Hemoglobin A1c 5.2 (<5.7) % Calculated Osmolality 286 (285-295) mOsm/kg Calcium 9.4 (8.4-10.2) mg/dL Magnesium 2.0 (1.6-2.3) mg/dL Total Bilirubin 0.6 (0.2-1.3) mg/dL AST 26 (17-59) U/L ALT 15 (6-50) U/L Alkaline Phosphatase 62 (38-126) U/L Troponin I < 0.012 (0.000-0.034) ng/mL NT-Pro-B Natriuret Pep 36 (19.9-100) pg/mL Total Protein 8.0 (6.3-8.2) g/dL Albumin 4.3 (3.5-5.1) g/dL Lipase 127 (23-300) U/L Urine Color Light yellow (Yellow) Urine Appearance Clear (Clear) Urine pH 6.5 (5.0-8.0) Ur Specific [place] 1.010 (1.010-1.020) Urine Protein Negative (Negative) Urine Glucose (UA) Negative (Negative) Urine Ketones Negative (Negative) Ur Blood (Man) Negative (Negative) Urine Nitrate Negative (Negative) Urine Bilirubin Negative (Negative) Urine Urobilinogen 1.0 (0.2-1.0) mg/dL Leukocyte Esterase Rfl Negative (Negative) JOANN/UL Influenza A (RT-PCR) Negative (Negative) Influenza B (RT-PCR) Negative (Negative) RSV (RT-PCR) Negative (Negative) SARS-CoV-2 RNA (RT-PCR) Negative (Negative) Group A Strep (PCR) Not detected (Negative) 08/15/25 Range/Units 15:03 WBC (4.8-10.8) K/mm3 RBC (4.70-6.10) M/mm3 Hgb (14.0-18.0) g/dL Hct (40.0-54.0) % MCV (78.0-102.0) fL MCH (27.0-31.0) pg MCHC (32-36) g/dL RDW (11.6-14.4) % Plt Count (150-420) K/mm3 MPV (8.7-11.0) fl Immature Gran % (Auto) (0.0-0.0) % Neut % (Auto) (50.0-70.0) % Lymph % (Auto) (18.0-42.0) % Posey % (Auto) (2.0-11.0) % Eos % (Auto) (1.0-6.0) % Baso % (Auto) (0.0-1.0) % Lymph # (Auto) (1.10-4.50) K/mm3 Posey # (Auto) (0.10-0.90) K/mm3 Eos # (Auto) (0.02-0.50) K/mm3 Baso # (Auto) (0.00-0.10) K/mm3 Abs Immat Gran (auto) (0.00-0.00) K/mm3 Absolute Neuts (auto) (1.70-7.20) K/mm3 Absolute Nucleated RBC (0.00-0.00) K/mm3 Nucleated RBC % (0-0.0) % PT (9.50-12.1) Seconds INR APTT (23.9-30.70) Sec D-Dimer (0.19-0.50) mg/L Sodium (137-145) mmol/L Potassium (3.4-5.0) mmol/L Chloride (98-107) mmol/L Carbon Dioxide (22-30) mmol/L Anion Gap (4-12) mmol/L BUN (9-20) mg/dL Creatinine (0.7-1.3) mg/dL Estim Creat Clear Calc ml/min Estimated GFR (59 - ) Glucose (65-110) mg/dL Hemoglobin A1c (<5.7) % Calculated Osmolality (285-295) mOsm/kg Calcium (8.4-10.2) mg/dL Magnesium (1.6-2.3) mg/dL Total Bilirubin (0.2-1.3) mg/dL AST (17-59) U/L ALT (6-50) U/L Alkaline Phosphatase (38-126) U/L Troponin I < 0.012 (0.000-0.034) ng/mL NT-Pro-B Natriuret Pep (19.9-100) pg/mL Total Protein (6.3-8.2) g/dL Albumin (3.5-5.1) g/dL Lipase (23-300) U/L Urine Color (Yellow) Urine Appearance (Clear) Urine pH (5.0-8.0) Ur Specific [place] (1.010-1.020) Urine Protein (Negative) Urine Glucose (UA) (Negative) Urine Ketones (Negative) Ur Blood (Man) (Negative) Urine Nitrate (Negative) Urine Bilirubin (Negative) Urine Urobilinogen (0.2-1.0) mg/dL Leukocyte Esterase Rfl (Negative) JOANN/UL Influenza A (RT-PCR) (Negative) Influenza B (RT-PCR) (Negative) RSV (RT-PCR) (Negative) SARS-CoV-2 RNA (RT-PCR) (Negative) Group A Strep (PCR) (Negative) Imaging Data Attestation: I personally reviewed and interpreted this imaging study as follows: Radiologist's impression: Chest x-ray is negative for acute process CT scan of the chest abdomen and pelvis is negative for acute process (patient is allergic to dye) ECG Data EKG #1: Attestation: I personally reviewed and interpreted this ECG as follows: ECG completion date: 08/15/25 ECG completion time: 13:31 Prior ECG tracings: available for review Interpretation: No acute change from prior EKG EKG Interpretation: normal rate, sinus rhythm, no ectopy, non-specific ST changes, normal QRS, normal QT and left axis Discharge Plan Discharge Clinical Impression: Atypical chest pain Patient Disposition: Home Condition: Stable Instructions: Antibiotic Form, Chest Pain (ED) Additional Instructions: Please follow-up with the primary doctor in the next week. Follow up with the acoustical logging engineer for outpatient stress test. Patient Language: Kazakh Prescriptions: No Action naproxen [Naprosyn] 500 mg tablet 500 mg PO BID PRN (Reason: pain) Qty: 14 0RF glucagon 3 mg/actuation spray,non-aerosol 3 mg intranasal ONCE PRN (Reason: hypoglycemia) Qty: 2 3RF Rx Instructions: as a single dose cholecalciferol (vitamin D3) 1,250 mcg (50,000 unit) capsule See Rx Instructions .ROUTE .COMPLEX Qty: 8 0RF Dose Instruction: Take 1 capsule by mouth once a week Rx Instructions: Take 1 capsule by mouth once a week albuterol sulfate 90 mcg/actuation HFA aerosol inhaler See Rx Instructions .ROUTE .COMPLEX Qty: 9 2RF Dose Instruction: INHALE 2 PUFFS BY MOUTH 4 TIMES DAILY NEEDED FOR SHORTNESS OF BREATH OR WHEEZING (USE WITH SPACER) Rx Instructions: INHALE 2 PUFFS BY MOUTH 4 TIMES DAILY NEEDED FOR SHORTNESS OF BREATH OR WHEEZING (USE WITH SPACER) gabapentin 300 mg capsule 300 mg PO QHS PRN (Reason: pain) Qty: 30 2RF acarbose 100 mg tablet 100 mg PO TID 90 Days Qty: 270 1RF (DME) FreeStyle Leo 3 Plus Sensor Device See Rx Instructions .ROUTE .COMPLEX Qty: 6 0RF Dose Instruction: USE DIRECTED Rx Instructions: USE DIRECTED valacyclovir 1 gram tablet See Rx Instructions .ROUTE .COMPLEX Qty: 21 0RF Dose Instruction: TAKE 1 TABLET BY MOUTH EVERY 8 HOURS FOR 7 DAYS Rx Instructions: TAKE 1 TABLET BY MOUTH EVERY 8 HOURS FOR 7 DAYS levothyroxine 200 mcg tablet See Rx Instructions .ROUTE .COMPLEX Qty: 90 2RF Dose Instruction: Take 1 tablet by mouth once daily Rx Instructions: Take 200 mcg 6 days a week, one pill from Monday to Monday, skip Sundays (DME) BD Luer-Kenney Syringe 3 mL 25 gauge x 1 syringe See Rx Instructions .ROUTE .MEDSUPPLY Qty: 50 0RF Rx Instructions: inject Testosterone every 14 days testosterone cypionate 100 mg/mL oil 100 mg IM Q14D Qty: 10 1RF Rx Instructions: as a single dose Follow-up/Referrals: Mehrdad English DO [Primary Care Provider, [facility]] Time of Disposition: 15:42
[2025-08-15 13:33] LABS: Hematocrit 40.6 % (40.0-54.0); Hemoglobin 13.7 g/dL (14.0-18.0); Immature Granulocyte Percent A 0.1 % (0.0-0.0); Lymphocytes Absolute Auto 1.90 K/mm3 (1.10-4.50); Mean Corpuscular HGB Conc 33.7 g/dL (32-36); Mean Corpuscular Hemoglobin 30.6 pg (27.0-31.0); Mean Corpuscular Volume 90.8 fL (78.0-102.0); Nucleated Red Blood Cells Absolute Auto 0.00 K/mm3 (0.00-0.00); Nucleated Red Blood Cells Perc 0.0 % (0-0.0); Platelet Count Result 239 K/mm3 (150-420); Red Blood Count 4.47 M/mm3 (4.70-6.10); White Blood Count 7.3 K/mm3 (4.8-10.8)
[2025-08-15 13:46] LABS: Alanine Aminotransferase 15 U/L (6-50); Albumin Level 4.3 g/dL (3.5-5.1); Alkaline Phosphatase 62 U/L (38-126); Anion Gap 8 mmol/L (4-12); Aspartate Amino Transferase 26 U/L (17-59); Bilirubin,Total 0.6 mg/dL (0.2-1.3); Blood Urea Nitrogen 10 mg/dL (9-20); Calcium 9.4 mg/dL (8.4-10.2); Carbon Dioxide 30 mmol/L (22-30); Chloride 101 mmol/L (98-107); Estimated CRCL calculation 147 ml/min; Estimated Glomerular Filt Rate > 60; Glucose 89 mg/dL (65-110); Lipase 127 U/L (23-300); Osmolality Calculated 286 mOsm/kg (285-295); Potassium 4.3 mmol/L (3.4-5.0); Sodium 139 mmol/L (137-145); Total Protein 8.0 g/dL (6.3-8.2)
[2025-08-15 13:48] LABS: INR 1.0; Partial Thromboplastin Time 31.0 Sec (23.9-30.70); Prothrombin Time 10.6 Seconds (9.50-12.1)
[2025-08-15 13:57] LABS: Strep Group A RT-PCR NOT DETECTED (Negative)
[2025-08-15 13:58] LABS: NT Pro B Type Natriuretic Pept 36 pg/mL (19.9-100); Troponin I < 0.012 ng/mL (0.000-0.034)
[2025-08-15 14:05] LABS: Add Urine Microscopic? NO; Appearance Urine Clear (Clear); Glucose Urine UA Negative (Negative); Leukocyte Esterase Ur Negative LEU/UL (Negative); Nitrate Urine Negative (Negative); Specific Grav Ur 1.010 (1.010-1.020)
[2025-08-15 14:08] LABS: Hemoglobin A1C 5.2 % (<5.7)
[2025-08-15 14:10] LABS: Influenza A QL RT-PCR Negative (Negative); Influenza B QL RT-PCR Negative (Negative); RSV RNA, RT-PCR Negative (Negative); SARS-CoV-2 RNA PCR Negative (Negative)
[2025-08-15 14:24] LABS: Magnesium 2.0 mg/dL (1.6-2.3)
--- NOTE | 2025-08-15 14:33 | PC.NURSE ---
pt resting per cot. awaiting ct results. no needs at this time. call العلي in reach.
[2025-08-15 15:30] LABS: Troponin I < 0.012 ng/mL (0.000-0.034)
== END 2025-08-15 16:01 | disposition home or self-care (01) ==
PROVIDERS: Emergency Provider Emergency Medicine; PCP Family Medicine
DX: R07.89 Other chest pain (principal); I10 Essential (primary) hypertension; E11.9 Type 2 diabetes mellitus without complications; E03.9 Hypothyroidism, unspecified; J44.9 Chronic obstructive pulmonary disease, unspecified; Z98.84 Bariatric surgery status; Z20.822 Contact with and (suspected) exposure to COVID-19
CPT/HCPCS: 36415; 71045; 71250; 74176; 80053; 81003; 83036; 83690; 83735; 83880; 84484; 85025; 85380; 85610; 85730; 87637; 87651; 93005; 99284

== ENCOUNTER 2025-08-28 14:57 | Emergency (ER) | payer OTHER, SELFPAY ==
[2025-08-28 15:09] VITALS: BP 121/67; PULSE 79; RESP 18; TEMP 36.8; O2SAT 95
== END 2025-08-28 16:50 | disposition left against medical advice (07) ==
LOC: ANHED 16:48
PROVIDERS: PCP Family Medicine
DX: S79.911A Unspecified injury of right hip, initial encounter (principal)
CPT/HCPCS: 99199

== ENCOUNTER 2025-08-28 17:09 | Emergency (ER) | payer OTHER, SELFPAY ==
--- NOTE | ~2025-08-28 | XR_ITS ---
XR lumbar spine 2-3V Indication: Low back injury Comparison: None Findings: The vertebral heights are intact. No fracture or subluxation. The disc heights are intact. Soft tissues unremarkable Impression: No acute abnormality. Reviewed, dictated and finalized at location P. Impression: No acute abnormality.
--- NOTE | ~2025-08-28 | XR_ITS ---
XR hip RT min 3V w AP pelvis INDICATION: pain COMPARISON: None FINDINGS: AP view the pelvis and 2 views of the right hip demonstrate no acute fracture or dislocation. Mild degenerative changes are noted with joint space narrowing. IMPRESSION: No acute fracture or dislocation. Reviewed, dictated and finalized at location S.
[2025-08-28 17:10] VITALS: BP 119/78; PULSE 81; RESP 18; TEMP 36.6; O2SAT 97
--- OUTSIDE RECORDS SUMMARY | 2025-08-28 17:12 | XMS_ITS | Clinical Summary ---
Author Organization [facility] Address [address] [place] [address] Care Team Providers Care Rack Room Worker Name Role Phone Mehrdad English DO Primary Care Provider [phone] Allergies Active Allergy Reactions Criticality Noted Date [...] of 2) 2025 COVID-19 Vaccine (1 - 2024-2 6 season) 2025 Influenza Adult (#1) 2025 Hepatitis [...] age to complete this topic Insurance [facility] Advance Directives * Full Code (Latest Code Status on File) Date Activated Date Inactivated Comments 05/12/2023 10:40 AM 05/13/2023 12:03 PM Care Teams Rack Room Worker Relationship Specialty Start Date End Date Mehrdad English DO [address] [place] [address] PCP - General FAMILY PRACTICE 05/12/23
--- OUTSIDE RECORDS SUMMARY | 2025-08-28 17:12 | XMS_ITS | Patient Health Record ---
Author Organization [facility] Address [address] [place], [place] [id number] Care Team Providers Care Nitroglycerin Nitrator Operator Batch Name Role Phone Nya Rivera Unavailable Unavailable Allergies No Known Allergies Reason For Referral No Information Plan Of Treatment No Information Insurance Providers Payer Name Payer Address Payer Phone Subscriber Number Group Number Insured Name Patient Relationship to Insured Coverage Start Date Coverage End Date Formerly Named [facility] ([facility]) ATTN CLAIMS [address] [place] [address] [id number] MALACHI JOEMAN Self - patient is the insured Medical (General) History Medical History History ICD Code asthma - mild intermittent Respiratory disease Arthritis Gout Sleep apnea Thyroid Disease angina high blood pressure
--- NOTE | 2025-08-28 17:46 | ED.FALL ---
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 No other injuries noted no loss of consciousness pain level about a 04/08. complaint: fall Onset (ago): hour(s) Fall from: standing Fall witnessed: no Place fall occurred: street Loss of consciousness: none Prolonged down time: no Symptoms prior to fall: none Context: tripped/slipped Location of injury - extremities: Right: lower leg (Tenderness with palpation and range of motion) Severity: moderate Severity scale (1-10): 6 Related Data Allergies Allergy/AdvReac Type Severity Reaction Status Date / Time Iodinated Contrast Media Allergy Severe Hives Verified 08/28/25 14:58 Review of Systems Review of Systems: All systems reviewed & are unremarkable except as noted in HPI and below PMFSH Past Medical History Medical History BMI 60.0-69.9, adult Conjunctivitis Benign essential hypertension Primary osteoarthritis of left knee Cough Loss of taste Sore throat Chest pain Gout attack Bilateral lower extremity edema Cellulitis Left knee pain Pilonidal cyst NABILA (obstructive sleep apnea) Nonalcoholic fatty liver disease Migraine with aura and without status migrainosus Hyperlipidemia associated with type 2 diabetes mellitus Type 2 diabetes mellitus with hypertriglyceridemia COPD (chronic obstructive pulmonary disease) Hypothyroidism Surgical History Surgical History History of oral surgery (~2001) Oral Extractions History of fasciotomy (~2010) History of left heart catheterization (LHC) Social History Social History Smoking status: Never smoker Alcohol intake: never Alcohol use details: Rarely Substance use: never Substance use type: does not use Lack of Transportation: No Lack of Food: Never True Current Housing: I Have Housing Concerned About Future Housing: No Difficulty Paying Gas/Electric Bills: No Difficulty Paying for Meds: No Currently Unemployed: No Education: Master's Degree or Higher Difficulty w/ Childcare or Family Care: No Living arrangements: with family Occupation/Education: occupation Additional occupation/education comments: Paraprofessional Gender identity (if verbalized by the patient): Male Spiritual care concerns: No Agree to blood products: Yes Exam Const: General: healthy appearing and no acute distress Nutritional Appearance: well nourished and obese Orientation/consciousness: patient oriented x3 Limitations: no limitations Neck: Neck: normal visual inspection, no lymphadenopathy and no meningeal signs Chest: Chest palpation & inspection: normal inspection of the chest Resp: Effort & Inspection: normal respiratory effort Auscultation: clear to auscultation bilaterally Cardio: Rate: regular rate Rhythm: regular rhythm GI: GI Palp: Yes Soft to palpation Auscultation: normal bowel sounds Skin: General skin exam: normal color Rashes: no rashes Wounds: no wounds Neuro: General: patient oriented x3, moves all extremities, no meningeal signs and no focal motor deficits Extrem: Other: Tenderness in his right lower back and buttock area and tenderness lateral aspect of his right hip otherwise good range of motion is Course Course Emergency Course: Medical decision making narrative: The patient was evaluated by myself in the ED. History obtained from the patient who is an independent historian and physical exam performed and reviewed and witnessed by the tech. Patient received 60mg IM Toradol, x-rays performed of his lumbar spine and right hip and pelvis reviewed by radiology and independently by myself which showed no acute fractures or abnormalities. Repeat assessment: Patient doing well on repeat exam no acute distress Symptoms improved since arrival to the ED and since administration of pain medication. Vital a repeat were stable Patient agrees with discussion and after shared medical decision making and agrees with discharge. All questions answered to the patient's satisfaction Follow-up within 3 to 5 days with primary care physician. Vital Signs Vital signs: Vital Signs Temperature 36.6 C 08/28/25 17:10 Pulse Rate 81 08/28/25 17:10 Respiratory Rate 18 08/28/25 17:10 Blood Pressure 119/78 08/28/25 17:10 Pulse Oximetry 97 08/28/25 17:10 Oxygen Delivery Room Air 08/28/25 17:10 Temperature 36.6 C 08/28/25 17:10 Pulse Rate 81 08/28/25 17:10 Respiratory Rate 18 08/28/25 17:10 Blood Pressure 119/78 08/28/25 17:10 Pulse Oximetry 97 08/28/25 17:10 Oxygen Delivery Room Air 08/28/25 17:10 Critical Care Time Critical Care Time Critical Care Time: No Discharge Plan Discharge Clinical Impression: Hip strain Qualifiers: Encounter type: initial encounter Laterality: right Qualified Code(s): S76.011A - Strain of muscle, fascia and tendon of right hip, initial encounter Low back strain Qualifiers: Encounter type: initial encounter Qualified Code(s): S39.012A - Strain of muscle, fascia and tendon of lower back, initial encounter Patient Disposition: Home Condition: Stable Instructions: Antibiotic Form, Low Back Strain (ED), Hip Sprain (ED) Additional Instructions: Advised patient to take Tylenol or Motrin as needed and to follow with primary in 3 to 5 days if symptoms persist or worsen. Patient Language: Croatian Prescriptions: No Action naproxen [Naprosyn] 500 mg tablet 500 mg PO BID PRN (Reason: pain) Qty: 14 0RF glucagon 3 mg/actuation spray,non-aerosol 3 mg intranasal ONCE PRN (Reason: hypoglycemia) Qty: 2 3RF Rx Instructions: as a single dose cholecalciferol (vitamin D3) 1,250 mcg (50,000 unit) capsule See Rx Instructions .ROUTE .COMPLEX Qty: 8 0RF Dose Instruction: Take 1 capsule by mouth once a week Rx Instructions: Take 1 capsule by mouth once a week albuterol sulfate 90 mcg/actuation HFA aerosol inhaler See Rx Instructions .ROUTE .COMPLEX Qty: 9 2RF Dose Instruction: INHALE 2 PUFFS BY MOUTH 4 TIMES DAILY NEEDED FOR SHORTNESS OF BREATH OR WHEEZING (USE WITH SPACER) Rx Instructions: INHALE 2 PUFFS BY MOUTH 4 TIMES DAILY NEEDED FOR SHORTNESS OF BREATH OR WHEEZING (USE WITH SPACER) gabapentin 300 mg capsule 300 mg PO QHS PRN (Reason: pain) Qty: 30 2RF acarbose 100 mg tablet 100 mg PO TID 90 Days Qty: 270 1RF (DME) FreeStyle Leo 3 Plus Sensor Device See Rx Instructions .ROUTE .COMPLEX Qty: 6 0RF Dose Instruction: USE DIRECTED Rx Instructions: USE DIRECTED valacyclovir 1 gram tablet See Rx Instructions .ROUTE .COMPLEX Qty: 21 0RF Dose Instruction: TAKE 1 TABLET BY MOUTH EVERY 8 HOURS FOR 7 DAYS Rx Instructions: TAKE 1 TABLET BY MOUTH EVERY 8 HOURS FOR 7 DAYS levothyroxine 200 mcg tablet See Rx Instructions .ROUTE .COMPLEX Qty: 90 2RF Dose Instruction: Take 1 tablet by mouth once daily Rx Instructions: Take 200 mcg 6 days a week, one pill from Monday to Monday, skip Sundays (DME) BD Luer-Kenney Syringe 3 mL 25 gauge x 1 syringe See Rx Instructions .ROUTE .MEDSUPPLY Qty: 50 0RF Rx Instructions: inject Testosterone every 14 days testosterone cypionate 100 mg/mL oil 100 mg IM Q14D Qty: 10 1RF Rx Instructions: as a single dose Follow-up/Referrals: Mehrdad English DO [Primary Care Provider, [facility]] Time of Disposition: 17:52
[2025-08-28] MEDS: KETOROLAC (*BKC) 60 MG/2 ML VIAL IM (18:02)
--- OUTSIDE RECORDS SUMMARY | 2025-08-28 18:08 | XMS_ITS | Clinical Summary ---
Author Organization [facility] Address [address] [place] [address] Care Team Providers Care Floor Cleaner Name Role Phone Mehrdad English DO Primary Care Provider [phone] Allergies Active Allergy Reactions Criticality Noted Date [...] patient's age to complete this topic Insurance [facility] Advance Directives * Full Code (Latest Code Status on File) Date Activated Date Inactivated Comments 05/12/2023 10:40 AM 05/13/2023 12:03 PM Care Teams Floor Cleaner Relationship Specialty Start Date End Date Mehrdad English DO [address] [place] [address] PCP - General FAMILY PRACTICE 05/12/23
--- NOTE | 2025-08-28 18:18 | PC.NURSE ---
On 08/28/25, the student, [ELO LION], provided care and completed [employer] documentation on this patient. I have reviewed the student's documentation and agree with the findings.
[2025-08-28 18:20] VITALS: BP 122/75; PULSE 80; RESP 20; TEMP 36.7; O2SAT 98
== END 2025-08-28 18:22 | disposition home or self-care (01) ==
LOC: CHSED 18:06
PROVIDERS: Emergency Provider Emergency Medicine; PCP Family Medicine
DX: S76.011A Strain of muscle, fascia and tendon of right hip, initial encounter (principal); S39.012A Strain of muscle, fascia and tendon of lower back, initial encounter; J44.9 Chronic obstructive pulmonary disease, unspecified; E03.9 Hypothyroidism, unspecified; E78.5 Hyperlipidemia, unspecified; E11.9 Type 2 diabetes mellitus without complications; I10 Essential (primary) hypertension; W01.0XXA Fall on same level from slipping, tripping and stumbling without subsequent striking against object, initial encounter
CPT/HCPCS: 72100; 73502; 96372; 99284; J1885

== ENCOUNTER 2025-09-15 20:12 | Emergency (ER) | payer OTHER, SELFPAY ==
[2025-09-15] VITALS (12 sets, daily range): BP systolic 112–135; BP diastolic 72–75; PULSE 48–89; RESP 16; TEMP 35.9–36.1; O2SAT 92–99
[2025-09-15 20:39] LABS: Hematocrit 40.4 % (40.0-54.0); Hemoglobin 13.6 g/dL (14.0-18.0); Immature Granulocyte Percent A 0.3 % (0.0-0.0); Lymphocytes Absolute Auto 2.33 K/mm3 (1.10-4.50); Mean Corpuscular HGB Conc 33.7 g/dL (32-36); Mean Corpuscular Hemoglobin 30.9 pg (27.0-31.0); Mean Corpuscular Volume 91.8 fL (78.0-102.0); Nucleated Red Blood Cells Absolute Auto 0.00 K/mm3 (0.00-0.00); Nucleated Red Blood Cells Perc 0.0 % (0-0.0); Platelet Count Result 234 K/mm3 (150-420); Red Blood Count 4.40 M/mm3 (4.70-6.10); White Blood Count 6.6 K/mm3 (4.8-10.8)
[2025-09-15] MEDS: DEXTROSE 10% 250 ML 100 ML IV CONT (20:45)
[2025-09-15 20:51] LABS: Alanine Aminotransferase 15 U/L (6-50); Albumin Level 4.2 g/dL (3.5-5.1); Alkaline Phosphatase 54 U/L (38-126); Anion Gap 8 mmol/L (4-12); Aspartate Amino Transferase 27 U/L (17-59); Bilirubin,Total < 0.1 mg/dL (0.2-1.3); Blood Urea Nitrogen 12 mg/dL (9-20); Calcium 9.1 mg/dL (8.4-10.2); Carbon Dioxide 30 mmol/L (22-30); Chloride 102 mmol/L (98-107); Estimated CRCL calculation 123 ml/min; Estimated Glomerular Filt Rate > 60; Glucose 89 mg/dL (65-110); Osmolality Calculated 288 mOsm/kg (285-295); Potassium 3.6 mmol/L (3.4-5.0); Sodium 140 mmol/L (137-145); Total Protein 6.9 g/dL (6.3-8.2)
--- NOTE | 2025-09-15 20:53 | PC.NURSE ---
PT MEDICATED PER ORDER, SEE MAR. PER SPOUSE, PATIENT NICOL CONTINUOUS MONITOR BG IS TRENDING UP WITH CURRENT VALUE AT 85. PT ATE 1 WHOLE HAM SANDWICH WITH BUN AND HALF AN APPLE JUICE. LIGHTS REMAIN OFF FOR PATIENT COMFORT. PT GIVEN WARM BLANKET. PT AWAITING RESULTS OF BLOOD WORK.
--- NOTE | 2025-09-15 21:21 | ED_ITS ---
HPI - General Adult General Chief complaint: Unspecified Stated complaint: concerns with blood sugar Time Seen by Provider: 09/15/25 20:30 Source: patient and family Mode of arrival: ambulatory Limitations: no limitations History of Present Illness HPI narrative: 50-year-old with a history of hypoglycemia , here with a complaints of low blood sugars since this morning , he states he has been dealing with this issue for past one and half year , he states his sugar was down to 48 and started to feel dizzy and also was having lower abdominal cramping. Onset (ago): day(s) (1) Associated symptoms: denies other symptoms Related Data Allergies Allergy/AdvReac Type Severity Reaction Status Date / Time Iodinated Contrast Media Allergy Severe Hives Verified 09/15/25 20:40 Review of Systems 2 Review of Systems: All systems reviewed & are unremarkable except as noted in HPI and below Constitutional: Constitutional: Reports no additional constitutional complaints Eyes: Eyes: Reports no additional eye complaints ENT: Reports system reviewed and no additional complaints, except as documented Cardiovascular: Cardiovascular: Reports no additional cardiovascular complaints Respiratory: Respiratory: Reports no additional respiratory complaints Gastrointestinal: Gastrointestinal: Reports no additional gastrointestinal complaints Musculoskeletal: Musculoskeletal: Reports no additional musculoskeletal complaints Neurologic: Reports system reviewed and no additional complaints, except as documented Endocrine: Endocrine: Reports as per HPI [facility] Past Medical History Medical History BMI 60.0-69.9, adult Conjunctivitis Benign essential hypertension Primary osteoarthritis of left knee Cough Loss of taste Sore throat Chest pain Gout attack Bilateral lower extremity edema Cellulitis Left knee pain Pilonidal cyst NABILA (obstructive sleep apnea) Nonalcoholic fatty liver disease Migraine with aura and without status migrainosus Hyperlipidemia associated with type 2 diabetes mellitus Type 2 diabetes mellitus with hypertriglyceridemia COPD (chronic obstructive pulmonary disease) Hypothyroidism Surgical History Surgical History History of oral surgery (~2001) Oral Extractions History of fasciotomy (~2010) History of left heart catheterization (LHC) Social History Social History Smoking status: Never smoker Alcohol intake: never Alcohol use details: Rarely Substance use: never Substance use type: does not use Lack of Transportation: No Lack of Food: Never True Current Housing: I Have Housing Concerned About Future Housing: No Difficulty Paying Gas/Electric Bills: No Difficulty Paying for Meds: No Currently Unemployed: No Education: Master's Degree or Higher Difficulty w/ Childcare or Family Care: No Living arrangements: with family Occupation/Education: occupation Additional occupation/education comments: Paraprofessional Gender identity (if verbalized by the patient): Male Spiritual care concerns: No Agree to blood products: Yes Exam 2 Narrative: GENERAL: Well-appearing, well-nourished, and in no acute distress. HEAD: Normocephalic, atraumatic. EYES: PERRLA and EOMI. ENT: Nares clear, no rhinorrhea or epistaxis. Mucous membranes moist. NECK: Supple. CHEST: Clear to auscultation. No respiratory distress. HEART: Regular rate and rhythm. No murmur heard. Normal peripheral pulses. ABDOMEN: Soft, nontender, nondistended, normal active bowel sounds. EXTREMITIES: Normal range of motion. No edema. SKIN: Warm, dry, no rash. NEURO: No focal deficits. Alert and oriented x3. PSYCH: Normal mood and affect. Course Course Emergency Course: Patient was started on D10 drip his blood sugar was checked periodically and there is of quite a bit of discrepancy between our Acuu check and his Dexacom reading . our reading have been above 100 . advised hi to change his Dexacom , follow with his PMD. Vital Signs Vital signs: Vital Signs Temperature 35.9 C L 09/15/25 20:17 Pulse Rate 59 L 09/15/25 20:17 Respiratory Rate 16 09/15/25 20:17 Blood Pressure 130/75 09/15/25 20:17 Pulse Oximetry 99 09/15/25 20:17 Oxygen Delivery Room Air 09/15/25 20:17 Temperature 35.9 C L 09/15/25 20:17 Pulse Rate 52 L 09/15/25 22:30 Respiratory Rate 16 09/15/25 22:00 Blood Pressure 135/73 09/15/25 21:34 Pulse Oximetry 92 09/15/25 22:30 Oxygen Delivery Room Air 09/15/25 22:00 Medical Decision Making Vital Signs Vital Signs: Vital Signs Temperature 35.9 C L 09/15/25 20:17 Pulse Rate 59 L 09/15/25 20:17 Respiratory Rate 16 09/15/25 20:17 Blood Pressure 130/75 09/15/25 20:17 Pulse Oximetry 99 09/15/25 20:17 Oxygen Delivery Room Air 09/15/25 20:17 Temperature 35.9 C L 09/15/25 20:17 Pulse Rate 52 L 09/15/25 22:30 Respiratory Rate 16 09/15/25 22:00 Blood Pressure 135/73 09/15/25 21:34 Pulse Oximetry 92 09/15/25 22:30 Oxygen Delivery Room Air 09/15/25 22:00 Lab Data 09/15/25 20:34 09/15/25 20:34 Labs: Lab Results 09/15/25 09/15/25 09/15/25 Range/Units 20:15 20:34 21:23 WBC 6.6 (4.8-10.8) K/mm3 RBC 4.40 L (4.70-6.10) M/mm3 Hgb 13.6 L (14.0-18.0) g/dL Hct 40.4 (40.0-54.0) % MCV 91.8 (78.0-102.0) fL MCH 30.9 (27.0-31.0) pg MCHC 33.7 (32-36) g/dL RDW 12.8 (11.6-14.4) % Plt Count 234 (150-420) K/mm3 MPV 8.9 (8.7-11.0) fl Immature Gran % (Auto) 0.3 H (0.0-0.0) % Neut % (Auto) 55.9 (50.0-70.0) % Lymph % (Auto) 35.3 (18.0-42.0) % [place] % (Auto) 7.3 (2.0-11.0) % Eos % (Auto) 0.9 L (1.0-6.0) % Baso % (Auto) 0.3 (0.0-1.0) % Lymph # (Auto) 2.33 (1.10-4.50) K/mm3 [place] # (Auto) 0.48 (0.10-0.90) K/mm3 Eos # (Auto) 0.06 (0.02-0.50) K/mm3 Baso # (Auto) 0.02 (0.00-0.10) K/mm3 Abs Immat Gran (auto) 0.02 H (0.00-0.00) K/mm3 Absolute Neuts (auto) 3.69 (1.70-7.20) K/mm3 Absolute Nucleated RBC 0.00 (0.00-0.00) K/mm3 Nucleated RBC % 0.0 (0-0.0) % Sodium 140 (137-145) mmol/L Potassium 3.6 (3.4-5.0) mmol/L Chloride 102 (98-107) mmol/L Carbon Dioxide 30 (22-30) mmol/L Anion Gap 8 (4-12) mmol/L BUN 12 (9-20) mg/dL Creatinine 0.91 (0.7-1.3) mg/dL Estim Creat Clear Calc 123 ml/min Estimated GFR > 60 (59 - ) Glucose 89 (65-110) mg/dL POC Capillary Glucose 115 H 132 H (65-105) mg/dl C-Peptide Calculated Osmolality 288 (285-295) mOsm/kg Calcium 9.1 (8.4-10.2) mg/dL Total Bilirubin < 0.1 L (0.2-1.3) mg/dL AST 27 (17-59) U/L ALT 15 (6-50) U/L Alkaline Phosphatase 54 (38-126) U/L Total Protein 6.9 (6.3-8.2) g/dL Albumin 4.2 (3.5-5.1) g/dL 09/15/25 09/15/25 09/15/25 Range/Units 21:26 22:11 23:11 WBC (4.8-10.8) K/mm3 RBC (4.70-6.10) M/mm3 Hgb (14.0-18.0) g/dL Hct (40.0-54.0) % MCV (78.0-102.0) fL MCH (27.0-31.0) pg MCHC (32-36) g/dL RDW (11.6-14.4) % Plt Count (150-420) K/mm3 MPV (8.7-11.0) fl Immature Gran % (Auto) (0.0-0.0) % Neut % (Auto) (50.0-70.0) % Lymph % (Auto) (18.0-42.0) % [place] % (Auto) (2.0-11.0) % Eos % (Auto) (1.0-6.0) % Baso % (Auto) (0.0-1.0) % Lymph # (Auto) (1.10-4.50) K/mm3 [place] # (Auto) (0.10-0.90) K/mm3 Eos # (Auto) (0.02-0.50) K/mm3 Baso # (Auto) (0.00-0.10) K/mm3 Abs Immat Gran (auto) (0.00-0.00) K/mm3 Absolute Neuts (auto) (1.70-7.20) K/mm3 Absolute Nucleated RBC (0.00-0.00) K/mm3 Nucleated RBC % (0-0.0) % Sodium (137-145) mmol/L Potassium (3.4-5.0) mmol/L Chloride (98-107) mmol/L Carbon Dioxide (22-30) mmol/L Anion Gap (4-12) mmol/L BUN (9-20) mg/dL Creatinine (0.7-1.3) mg/dL Estim Creat Clear Calc ml/min Estimated GFR (59 - ) Glucose (65-110) mg/dL POC Capillary Glucose 116 H 122 H (65-105) mg/dl C-Peptide Pending Calculated Osmolality (285-295) mOsm/kg Calcium (8.4-10.2) mg/dL Total Bilirubin (0.2-1.3) mg/dL AST (17-59) U/L ALT (6-50) U/L Alkaline Phosphatase (38-126) U/L Total Protein (6.3-8.2) g/dL Albumin (3.5-5.1) g/dL Discharge Plan Discharge Clinical Impression: Recurrent severe hypoglycemia Patient Disposition: Home Condition: Stable Instructions: Non-diabetic Hypoglycemia (ED) Additional Instructions: Change your Dexacom once you go home , follow with your doctor. Patient Language: Bhutanese Prescriptions: No Action glucagon 3 mg/actuation spray,non-aerosol 3 mg intranasal ONCE PRN (Reason: hypoglycemia) Qty: 2 3RF Rx Instructions: as a single dose cholecalciferol (vitamin D3) 1,250 mcg (50,000 unit) capsule See Rx Instructions .ROUTE .COMPLEX Qty: 8 0RF Dose Instruction: Take 1 capsule by mouth once a week Rx Instructions: Take 1 capsule by mouth once a week gabapentin 300 mg capsule 300 mg PO QHS PRN (Reason: pain) Qty: 30 2RF acarbose 100 mg tablet 100 mg PO TID 90 Days Qty: 270 1RF (DME) FreeStyle Leo 3 Plus Sensor Device See Rx Instructions .ROUTE .COMPLEX Qty: 6 0RF Dose Instruction: USE DIRECTED Rx Instructions: USE DIRECTED levothyroxine 200 mcg tablet See Rx Instructions .ROUTE .COMPLEX Qty: 90 2RF Dose Instruction: Take 1 tablet by mouth once daily Rx Instructions: Take 200 mcg 6 days a week, one pill from Monday to Monday, skip Sundays (DME) BD Luer-Kenney Syringe 3 mL 25 gauge x 1 syringe See Rx Instructions .ROUTE .MEDSUPPLY Qty: 50 0RF Rx Instructions: inject Testosterone every 14 days cyclobenzaprine 10 mg tablet 10 mg PO Q8H PRN (Reason: muscle spasm) Qty: 20 0RF Follow-up/Referrals: Mehrdad English DO [Primary Care Provider, [facility]] Time of Disposition: 23:32
--- NOTE | 2025-09-15 21:32 | PC.NURSE ---
PT AMBULATORY TO BATHROOM AT THIS TIME.
--- NOTE | 2025-09-15 22:14 | PC.NURSE ---
PT CHECKED, REPORTS IMPROVED HEADACHE. PER PT NICOL BG IN 80'S. BG RECHECKED WITH DEPT GLUCOMETER, REMAINS >110. RN MONITORING. PT UPDATED. SPOUSE AT BEDSIDE.
--- NOTE | 2025-09-15 23:17 | PC.NURSE ---
PT CHECKED, RESTING ON STRETCHER WITHOUT DISTRESS. VSS. PT SPOUSE STATES PT READINGS IN 40'S-50'S ON HIS METER, BG RECHECKED WITH HOSPITAL GLUCOMETER REMAINS >100. D10 INFUSED. ERP AWARE. CALL LIGHT WITHIN REACH.
--- NOTE | 2025-09-15 23:27 | PC.NURSE ---
[facility] [employer] AT BEDSIDE SPEAKING WITH PT REGARDING RESULTS AND PLAN OF CARE.
== END 2025-09-15 23:48 | disposition home or self-care (01) ==
PROVIDERS: Emergency Provider Family Medicine; PCP Family Medicine
DX: E11.649 Type 2 diabetes mellitus with hypoglycemia without coma (principal); J44.9 Chronic obstructive pulmonary disease, unspecified; E78.5 Hyperlipidemia, unspecified; I10 Essential (primary) hypertension; E03.9 Hypothyroidism, unspecified
CPT/HCPCS: 36415; 80053; 82948; 84681; 85025; 99283

== ENCOUNTER 2025-10-09 06:58 | Outpatient (CLI) | payer OTHER, SELFPAY ==
[2025-10-09 07:13] LABS: Hematocrit 42.4 % (40.0-54.0); Hemoglobin 14.0 g/dL (14.0-18.0)
[2025-10-09 08:46] LABS: Thyroid Stimulating Hormone 2.180 uIU/mL (0.465-4.680)
== END 2025-10-09 06:59 | disposition home or self-care (01) ==
PROVIDERS: PCP Family Medicine; Visit Provider Internal Medicine Endocrinology, Diabetes & Metabolism
DX: R79.89 Other specified abnormal findings of blood chemistry (principal); E03.9 Hypothyroidism, unspecified
CPT/HCPCS: 36415; 84443; 85014; 85018